=== PATIENT | male | born 1940 | race Caucasian/White ===

== ENCOUNTER 2020-08-31 21:01 | Emergency (ER) | payer MEDICARE, SELFPAY ==
[2020-08-31 21:03] VITALS: BP 165/67; PULSE 68; RESP 20; TEMP 36.7; O2SAT 98
--- NOTE | 2020-08-31 21:08 | ECG_ITS ---
Measurements Intervals [place] Rate: 65 P: 88 [place]: 166 QRS: 21 QRSD: 100 T: 45 QT: 425 QTc: 444 Interpretive Statements SINUS RHYTHM DELAYED PRECORDIAL R/S TRANSITION BASELINE ARTIFACT- II, III, AVF, V1 BORDERLINE ECG Electronically Signed On 09-01-2020 7:28:02 ROOFING TECHNICIAN by rBenden Pollock D.O.
[2020-08-31 22:00] LABS: Basophils Absolute Auto 0.1 K/mm3 (0.0-0.1); Basophils Percent Auto 0.7 % (0.2-1.2); Eosinophils Absolute Auto 0.1 K/mm3 (0-0.3); Eosinophils Percent Auto 1.3 % (0-4.4); Hematocrit 44.4 % (42.0-52.0); Hemoglobin 14.6 g/dL (14.0-18.0); Immature Granulocyte Absolute 0.03 K/mm3 (0.00-0.031); Immature Granulocyte Percent A 0.3 % (0-0.5); Lymphocytes Percent Auto 17.4 % (18.3-44.2); Mean Corpuscular HGB Conc 32.9 g/dl (32-36); Mean Corpuscular Hemoglobin 31.6 pg (26-34); Mean Corpuscular Volume 96.1 fl (80-100); Mean Platelet Volume 11.1 fl (7.4-10.4); Monocytes Absolute Auto 0.7 K/mm3 (0.1-0.6); Monocytes Percent Auto 7.2 % (2.6-8.5); Neutrophils Absolute Auto 6.7 K/mm3 (1.3-6.7); Neutrophils Percent Auto 73.1 % (45.5-73.1); Platelet Count Result 174 k/mm3 (150-375); Red Blood Count 4.62 M/mm3 (4.6-6.20); Red Cell Distribution Width 12.3 % (11.5-14.5); White Blood Count 9.2 K/mm3 (4.5-10.0)
[2020-08-31 22:02] VITALS: BP 152/65; BP 153/70; PULSE 59; PULSE 60
[2020-08-31 22:04] VITALS: BP 168/72; PULSE 72
[2020-08-31 22:13] LABS: Anion Gap 3 mmol/L (8-16); Blood Urea Nitrogen 27 mg/dL (9-20); Calcium 8.5 mg/dL (8.4-10.2); Carbon Dioxide 30 mmol/L (22-30); Chloride 105 mmol/L (98-107); Estimated Glomerular Filt Rate > 60; Glucose 167 mg/dL (75-110); Magnesium 1.9 mg/dL (1.6-2.3); Potassium 4.3 mmol/L (3.4-5.0); Sodium 138 mmol/L (137-145)
--- NOTE | 2020-08-31 22:37 | PC.NURSE ---
called and updated. Will call back later for another update.
--- NOTE | 2020-08-31 23:25 | ED.GENADULT ---
HPI - General Adult General Chief complaint: Recheck/Abnormal Lab/Rx Stated complaint: htn Time Seen by Provider: 08/31/20 21:31 History of Present Illness HPI narrative: Patient is a 80-year-old male who presents ER with some lightheadedness. She reports it occurred prior to arrival and lasted for several minutes. He opted to go upstairs to check his blood pressure after it occurred and found that his systolic blood pressure was in the 200s. He then chose to come to the ER for further evaluation. He has had no chest pain/shortness of breath/nausea/vomiting. He had no focal weakness in arm or leg. No slurred speech or facial droop. Has history of previous CVA. He is on Eliquis. Related Data Home Medications Medication Instructions Recorded Confirmed vitamin B complex 1 cap PO DAILY 08/02/19 04/20/20 Allergies Allergy/AdvReac Type Severity Reaction Status Date / Time Penicillins Allergy Intermediate Rash Verified 08/31/20 21:08 Review of Systems Review of Systems: All systems reviewed & are unremarkable except as noted in HPI and below Constitutional: Constitutional: Denies chills, Denies fever(s) and Denies weakness Cardiovascular: Cardiovascular: Denies chest pain, Denies rapid heart rate and Denies radiating jaw, neck or arm pain Respiratory: Respiratory: Denies cough and Denies dyspnea Gastrointestinal: Gastrointestinal: Denies nausea and Denies vomiting Neurologic: Reports dizziness, Denies headache(s), Denies focal weakness and Denies numbness PMFSH Past Medical History Medical History (Updated 08/31/20 @ 23:28 by Nam Terry MD) Atrial fibrillation Chest pain Chronic fatigue, unspecified Diabetes 1.5, managed as type 2 Dizziness Dyslipidemia associated with type 2 diabetes mellitus Hamstring tear Hyperlipidemia SOB (shortness of breath) Surgical History Surgical History History of ear, nose, and throat (ENT) surgery Previous back surgery Family History Family History Father Malignant neoplasm of prostate Social History Social History Smoking status: Never smoker Alcohol intake: never Gender identity (if verbalized by the patient): Male Exam Narrative: Exam Narrative: GENERAL: Well-appearing, well-nourished, and in no acute distress. HEAD: Normocephalic, atraumatic. Neck: Supple, no carotid bruit. CHEST: Clear to auscultation. No respiratory distress. HEART: Regular rate and rhythm. Normal peripheral pulses. ABDOMEN: Soft, nontender, nondistended. EXTREMITIES: Normal range of motion. No edema. NEURO: Alert and oriented x3. PSYCH: Normal mood and affect. Course Course Emergency Course: Unremarkable evaluation. Normal blood pressures here. Discharge home. Vital Signs Vital signs: Vital Signs Temperature 98.1 F 08/31/20 21:03 Pulse Rate 68 08/31/20 21:03 Respiratory Rate 20 08/31/20 21:03 Blood Pressure 165/67 H 08/31/20 21:03 Pulse Oximetry 98 08/31/20 21:03 Temperature 98.1 F 08/31/20 21:03 Pulse Rate 72 08/31/20 22:04 Respiratory Rate 20 08/31/20 21:03 Blood Pressure 168/72 H 08/31/20 22:04 Pulse Oximetry 98 08/31/20 21:03 Medical Decision Making Vital Signs Vital Signs: Vital Signs Temperature 98.1 F 08/31/20 21:03 Pulse Rate 68 08/31/20 21:03 Respiratory Rate 20 08/31/20 21:03 Blood Pressure 165/67 H 08/31/20 21:03 Pulse Oximetry 98 08/31/20 21:03 Temperature 98.1 F 08/31/20 21:03 Pulse Rate 72 08/31/20 22:04 Respiratory Rate 20 08/31/20 21:03 Blood Pressure 168/72 H 08/31/20 22:04 Pulse Oximetry 98 08/31/20 21:03 Lab Data Result diagrams: 08/31/20 21:54 08/31/20 21:54 Labs: Lab Results 08/31/20 08/31/20 Range/Units 21:54 21:54 WBC 9.2 (4.5-10.0) K/mm3 RBC 4
[2020-08-31 23:42] VITALS: BP 158/68; PULSE 58; RESP 18; O2SAT 97
== END 2020-08-31 23:44 | disposition home or self-care (01) ==
PROVIDERS: Emergency Provider Emergency Medicine; Family Provider Internal Medicine; PCP Internal Medicine
DX: I10 Essential (primary) hypertension (principal); I48.91 Unspecified atrial fibrillation; E78.5 Hyperlipidemia, unspecified; E11.9 Type 2 diabetes mellitus without complications; Z79.01 Long term (current) use of anticoagulants; Z79.84 Long term (current) use of oral hypoglycemic drugs
CPT/HCPCS: 36415; 80048; 83735; 85025; 93005; 99283

== ENCOUNTER 2021-09-06 09:30 | Outpatient (RCR) | payer MEDICARE, SELFPAY | END 2021-09-16 14:52 | disposition home or self-care (01) | LOC: ANHDMC 09:30 | PROVIDERS: PCP Internal Medicine; Visit Provider Internal Medicine | DX: E11.42 Type 2 diabetes mellitus with diabetic polyneuropathy (principal); Z71.89 Other specified counseling | CPT/HCPCS: 99199; G0108; G0109 ==

== ENCOUNTER 2021-11-06 13:59 | Outpatient (CLI) | payer MEDICARE, SELFPAY ==
--- NOTE | ~2021-11-06 | US_ITS ---
EXAMINATION: US arterial ankle brachial ind DATE: 11/06/2021 14:33 INDICATION: Peripheral vascular disease. Type 2 diabetes. Treated hypercholesterolemia. Treated hyper tension. TECHNIQUE: Segmental pressures and plethysmographic and Doppler waveforms of the brachial and lower e xtremity arteries were obtained. COMPARISON: None. FINDINGS: Right and left brachial artery pressures of 126 mm Hg and 125 mm Hg, respectively, are concordant (no rmal difference <= 30 mmHg). The right ankle-brachial index (ANA) is 1.58 (normal >= 0.9-1.0). The right great toe-brachial index (TBI) is 0.75 (normal >= 0.65). Arterial Doppler waveforms are biphasic. The left ANA is 1.17. The left TBI is 0.69. Arterial Doppler waveforms are biphasic. IMPRESSION: Bilateral normal ANA and TBI measurements Reviewed, dictated and finalized at [facility]. Reviewed, dictated and finalized at location [facility].
== END 2021-11-06 14:00 | disposition home or self-care (01) ==
PROVIDERS: PCP Internal Medicine; Visit Provider Internal Medicine
DX: I73.9 Peripheral vascular disease, unspecified (principal)
CPT/HCPCS: 93922

== ENCOUNTER 2022-05-12 10:43 | Outpatient (CLI) | payer MEDICARE, SELFPAY ==
--- NOTE | ~2022-05-12 | XR_ITS ---
XR knee LT 3V 05/12/2022 11:09 Indication: Left knee pain Procedure: 3 views left knee Comparison: No prior studies for comparison. Findings: There is mild osteoarthritis of the left knee. No fracture, subluxation or dislocation. No significant joint effusion. Impression: 1: Mild osteoarthritis of the left knee. Reviewed, dictated and finalized at [facility]. Impression: 1: Mild osteoarthritis of the left knee.
== END 2022-05-12 10:44 | disposition home or self-care (01) ==
PROVIDERS: PCP Internal Medicine; Visit Provider Nurse Practitioner
DX: M17.12 Unilateral primary osteoarthritis, left knee (principal)
CPT/HCPCS: 73562

== ENCOUNTER 2022-06-27 14:27 | Outpatient (CLI) | payer MEDICARE, SELFPAY ==
--- NOTE | ~2022-06-27 | XR_ITS ---
EXAMINATION: XR chest 2V 06/27/2022 14:47 INDICATION: Atrial fibrillation. Long-term drug therapy. PROCEDURE: 2 view chest COMPARISON: 05/31/2018 FINDINGS: The lungs are clear. The cardiomediastinal silhouette is within normal limits. There are no pleural effusions. There is no pneumothorax suspected. There are calcified granulomas. IMPRESSION: 1: NO ACUTE CARDIOPULMONARY DISEASE. Reviewed, dictated and finalized at location [facility]. 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
== END 2022-06-27 14:28 | disposition home or self-care (01) ==
PROVIDERS: PCP Internal Medicine; Visit Provider Internal Medicine Cardiovascular Disease
DX: Z79.899 Other long term (current) drug therapy (principal)
CPT/HCPCS: 71046

== ENCOUNTER 2022-07-31 09:38 | Emergency (ER) | payer MEDICARE, SELFPAY ==
[2022-07-31 09:50] VITALS: BP 169/68; PULSE 85; RESP 18; TEMP 36.3; O2SAT 100
--- NOTE | 2022-07-31 10:04 | ED.GENADULT ---
HPI - General Adult General Chief complaint: Dental/Oral Stated complaint: Swollen lip Time Seen by Provider: 07/31/22 10:04 Source: patient, RN notes reviewed and old records reviewed Mode of arrival: ambulatory Limitations: no limitations History of Present Illness HPI narrative: 82-year-old male presents to the [facility] with a swollen lip. Had dental work done 2 days ago. Patient reports after he got dressed he noticed that the right side of his lip was swollen. It has switch sides to the left lower. No numbness or tingling. No redness. No increased warmth. No lip or tongue swelling. Talking in full sentences. Patient also reports being itchy all over without a rash. Onset (ago): hour(s) Related Data Home Medications Medication Instructions Recorded Confirmed vitamin B complex 1 cap PO DAILY 08/02/19 07/31/22 amiodarone 100 mg tablet 100 mg DAILY 07/31/22 07/31/22 blood sugar diagnostic (OneTouch 07/31/22 Verio test strips) metformin 500 mg tablet 500 mg DAILY 07/31/22 07/31/22 omeprazole 20 mg capsule,delayed 20 mg DAILY 07/31/22 07/31/22 release tamsulosin 0.4 mg capsule 0.4 mg PO DAILY 07/31/22 07/31/22 Allergies Allergy/AdvReac Type Severity Reaction Status Date / Time Penicillins Allergy Intermediate Rash Verified 07/31/22 10:10 Review of Systems Review of Systems: All systems reviewed & are unremarkable except as noted in HPI and below Constitutional: Constitutional: Reports no additional constitutional complaints Eyes: Eyes: Reports no additional eye complaints ENT: Reports as per HPI Cardiovascular: Cardiovascular: Reports no additional cardiovascular complaints, Denies chest pain and Denies dyspnea Respiratory: Respiratory: Reports no additional respiratory complaints, Denies chest congestion, Denies cough and Denies dyspnea Gastrointestinal: Gastrointestinal: Reports no additional gastrointestinal complaints, Denies abdominal pain, Denies nausea and Denies vomiting Musculoskeletal: Musculoskeletal: Reports no additional musculoskeletal complaints Integumentary/Breasts: Skin/Breast: Reports system reviewed and no additional complaints, except as docu Neurologic: Reports system reviewed and no additional complaints, except as documented Psychiatric: Psychiatric: Reports no additional psychiatric complaints Allergic/Immunologic: Allergic/Immunologic: Reports no additional allergic/immunologic complaints PMFSH Past Medical History Medical History Age-related nuclear cataract of left eye Age-related nuclear cataract of right eye ASHD (arteriosclerotic heart disease) Atrial fibrillation Benign essential hypertension Benign prostatic hyperplasia Body mass index [BMI] 29.0-29.9, adult (06/01/19) Calcification of both carotid arteries Cerebrovascular accident (CVA) Chest pain Chronic fatigue, unspecified 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, managed as type 2 Dizziness DM w/o complication type II Dyslipidemia associated with type 2 diabetes mellitus Gastroesophageal reflux disease without esophagitis Hamstring tear Hyperlipidemia Lesion of mandible Multinodular goiter On fpc drug therapy Other and unspecified hyperlipidemia Pain of left great toe Pneumonia due to infectious organism Sciatica of right side SOB (shortness of breath) Thyroid nodule URI, acute Surgical History Surgical History History of ear, nose, and throat (ENT) surgery Previous back surgery S/P discectomy Family History Family History Father Malignant neoplasm of prostate Other Diabetes mellitus Social History Social History Smoking status: Never smoker Second hand tobacco smoke exposure: Yes (when he was a kid ) Alcohol intake: never
== END 2022-07-31 10:32 | disposition home or self-care (01) ==
PROVIDERS: Emergency Provider Nurse Practitioner; PCP Internal Medicine
DX: R22.0 Localized swelling, mass and lump, head (principal); L50.9 Urticaria, unspecified; I48.91 Unspecified atrial fibrillation; I10 Essential (primary) hypertension; E11.9 Type 2 diabetes mellitus without complications; E78.5 Hyperlipidemia, unspecified; Z86.73 Personal history of transient ischemic attack (TIA), and cerebral infarction without residual deficits; Z79.84 Long term (current) use of oral hypoglycemic drugs
CPT/HCPCS: 99213; G0463

== ENCOUNTER 2023-06-25 11:33 | Emergency (ER) | payer MEDICARE, SELFPAY ==
[2023-06-25 11:43] VITALS: BP 172/66; PULSE 64; RESP 20; TEMP 37.1; O2SAT 100
--- NOTE | 2023-06-25 11:51 | ED.EPISTAXIS ---
HPI - Epistaxis General Chief complaint: Epistaxis Stated complaint: Nose Bleed Time Seen by Provider: 06/25/23 11:55 Mode of arrival: ambulatory Limitations: no limitations History of Present Illness HPI Narrative: 83-year-old male presents with concern for nose bleed this started around 10 30 this morning. He reports he was bending over to started Tiller and after strenuously pulling his nose started bleeding. He reports history of nose bleeds. He denies head injury. MD complaint: epistaxis Related Data Home Medications Medication Instructions Recorded Confirmed vitamin B complex 1 cap PO DAILY 08/02/19 04/30/23 blood sugar diagnostic (OneTouch 07/31/22 04/30/23 Verio test strips) tamsulosin 0.4 mg capsule 0.4 mg PO DAILY 07/31/22 04/30/23 Allergies Allergy/AdvReac Type Severity Reaction Status Date / Time Penicillins Allergy Intermediate Rash Verified 06/25/23 11:40 Review of Systems Review of Systems: CONSTITUTIONAL: Denies malaise EYES: Denies visual changes ENT: Reports left nare epistaxis NEUROLOGIC: Denies headache. 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, managed as type 2 Dizziness DM w/o complication type II Dyslipidemia associated with type 2 diabetes mellitus Gastroesophageal reflux disease without esophagitis Hamstring tear Hyperlipidemia Lesion of mandible Multinodular goiter On long-term drug therapy Other and unspecified hyperlipidemia Pain of left great toe Pneumonia due to infectious organism Sciatica of right side SOB (shortness of breath) Thyroid nodule URI, acute Surgical History Surgical History History of ear, nose, and throat (ENT) surgery Previous back surgery S/P discectomy Family History Family History Father Malignant neoplasm of prostate Other Diabetes mellitus Social History Social History Smoking status: Never smoker Second hand tobacco smoke exposure: Yes (when he was a kid ) Alcohol intake: never Substance use: never Substance use type: does not use Lack of Transportation: No Lack of Food: Never True Current Housing: I Have Housing Concerned About Future Housing: No Difficulty Paying Gas/Electric Bills: No Difficulty Paying for Meds: No Education: Bachelor's Degree Difficulty w/ Childcare or Family Care: No Gender identity (if verbalized by the patient): Male Comments At time of signature, agree with nursing past medical, surgical, social and family history. There is no relevant family history pertinent to the presenting complaint Exam Narrative: GENERAL: Well-appearing, well-nourished, and in no acute distress. HEAD: Normocephalic, atraumatic. EYES: PERRLA, sclera clear, and EOMI. No nystagmus. ENT: Nares clear, turbinates pink, no rhinorrhea. No active epistaxis, dried blood noted. Mucous membranes moist. NECK: Supple. CHEST: No respiratory distress. Speaks in full sentences. HEART: Regular rate and rhythm. SKIN: Warm, dry, no visible rash. NEURO: Alert and oriented x3. PSYCH: Normal mood and affect Course Course Emergency Course: Patient is aware of diagnosis, understands and agrees to treatment plan. Anticipatory guidance given. Patient agrees to follow-up as directed and
[2023-06-25] MEDS: PHENYLEPHRINE 1% NA SPR (*BKC) 15 ML BTL 1 SPRAY NASAL (12:05)
== END 2023-06-25 12:34 | disposition home or self-care (01) ==
PROVIDERS: Emergency Provider Nurse Practitioner; PCP Nurse Practitioner Family
DX: R04.0 Epistaxis (principal); I25.10 Atherosclerotic heart disease of native coronary artery without angina pectoris; I48.91 Unspecified atrial fibrillation; I10 Essential (primary) hypertension; N40.0 Benign prostatic hyperplasia without lower urinary tract symptoms; Z86.73 Personal history of transient ischemic attack (TIA), and cerebral infarction without residual deficits; E78.5 Hyperlipidemia, unspecified; E78.49 Other hyperlipidemia; E11.9 Type 2 diabetes mellitus without complications; H26.9 Unspecified cataract
CPT/HCPCS: 30901; 99213; A9270; G0463

== ENCOUNTER 2023-06-29 05:04 | Observation (INO) | payer MEDICARE, SELFPAY ==
[2023-06-29] VITALS (24 sets, daily range): BP systolic 132–170; BP diastolic 54–68; PULSE 61–90; RESP 15–33; TEMP 36.5–37.3; O2SAT 88–97; BMI 29.0
--- NOTE | ~2023-06-29 | CT_ITS ---
EXAMINATION: CT abdomen pelvis w con DATE: 06/29/2023 07:18 INDICATION: Abdominal distention. TECHNIQUE: Computed tomography (CT) of the abdomen and pelvis was performed with 100 mL Omnipaque 350 intravenous contrast. Automated exposure control and iterative reconstruction technique were employe d. The dose-length product was 729.31 mGy-cm. COMPARISON: None. FINDINGS: The visualized portions of the lung bases demonstrate mild scarring in paraspinal right low er lobe. No pleural effusion. The heart size is normal. No pericardial effusion. The liver and gallbl adder are normal. Calcifications in the spleen are consistent with old granulomatous disease. The bush creas, adrenal glands, and kidneys are normal. There are no dilated loops of bowel. There is divertic ulosis of the colon without evidence of diverticulitis. The appendix is not visualized. Aortic athero sclerosis is noted. There are no pathologically enlarged lymph nodes. There is no free intraperitonea l fluid. The prostate is severely enlarged. There is a left inguinal hernia containing fat. There is mild thoracic and lumbar spondylosis. IMPRESSION: 1. Left inguinal hernia containing fat. Reviewed, dictated and finalized at location E. BAG DESIGNER
--- NOTE | ~2023-06-29 | XR_ITS ---
EXAMINATION: XR chest 2V DATE: 06/29/2023 06:22 INDICATION: Chest pain. TECHNIQUE: Frontal and lateral views of the chest were obtained. COMPARISON: Chest 2 views 06/27/2022 FINDINGS: A calcified right lung nodule and calcified right hilar lymph nodes are consistent with old granulomatous disease. No pleural effusion or pneumothorax. The heart size is normal. IMPRESSION: 1. No acute cardiopulmonary disease. Reviewed, dictated and finalized at location E. 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
--- NOTE | 2023-06-29 05:05 | ECG_ITS ---
Measurements Intervals [place] Rate: 80 P: 58 [place]: 188 QRS: -14 QRSD: 98 T: 55 QT: 380 QTc: 440 Interpretive Statements SINUS RHYTHM CANNOT RULE OUT SEPTAL INFARCT, AGE INDETERMINATE BASELINE ARTIFACT- I, II, III, AVR, AVL, AVF, V1-V2, V4-V6 ABNORMAL ECG COMPARED TO ECG 08/31/2020 21:08:25 NO SIGNIFICANT CHANGES Electronically Signed On 06-29-2023 6:24:33 ROTOGRAVURE PRESS OPERATOR by Brenden Pollock D.O.
[2023-06-29 05:39] LABS: Basophils Absolute Auto 0.1 K/mm3 (0.0-0.1); Basophils Percent Auto 0.5 % (0.2-1.2); Eosinophils Absolute Auto 0.2 K/mm3 (0-0.3); Eosinophils Percent Auto 1.2 % (0-4.4); Hematocrit 42.4 % (42.0-52.0); Hemoglobin 13.3 g/dL (14.0-18.0); Immature Granulocyte Absolute 0.04 K/mm3 (0.00-0.031); Immature Granulocyte Percent A 0.3 % (0-0.5); Lymphocytes Absolute Auto 1.51 K/mm3 (0.9-3.2); Lymphocytes Percent Auto 11.6 % (18.3-44.2); Mean Corpuscular HGB Conc 31.4 g/dl (32-36); Mean Corpuscular Hemoglobin 30.8 pg (26-34); Mean Corpuscular Volume 98.1 fl (80-100); Mean Platelet Volume 10.9 fl (7.4-10.4); Monocytes Absolute Auto 0.6 K/mm3 (0.1-0.6); Monocytes Percent Auto 4.7 % (2.6-8.5); Neutrophils Absolute Auto 10.6 K/mm3 (1.3-6.7); Neutrophils Percent Auto 81.7 % (45.5-73.1); Platelet Count Result 190 k/mm3 (150-375); Red Blood Count 4.32 M/mm3 (4.6-6.20); Red Cell Distribution Width 12.7 % (11.5-14.5)
[2023-06-29 05:49] LABS: INR 1.1; Prothrombin Time 15.1 Seconds (11.1-14.7)
[2023-06-29 05:50] LABS: Partial Thromboplastin Time 30.9 SECONDS (22.3-36.8)
[2023-06-29 05:51] LABS: Alanine Aminotransferase 31 U/L (6-50); Albumin Level 4.4 g/dL (3.5-5.1); Alkaline Phosphatase 63 U/L (38-126); Anion Gap 12 mmol/L (8-16); Aspartate Amino Transferase 30 U/L (17-59); Bilirubin,Total 0.8 mg/dL (0.2-1.3); Blood Urea Nitrogen 28 mg/dL (9-20); Calcium 9.1 mg/dL (8.4-10.2); Carbon Dioxide 27 mmol/L (22-30); Chloride 101 mmol/L (98-107); Estimated CRCL calculation 47 ml/min; Estimated Glomerular Filt Rate 58; Glucose 134 mg/dL (65-110); Lipase 53 U/L (23-300); Potassium 4.1 mmol/L (3.4-5.0); Sodium 140 mmol/L (137-145)
[2023-06-29 06:02] LABS: Troponin I < 0.012 ng/mL (0.000-0.034)
--- NOTE | 2023-06-29 06:52 | ED.GENADULT ---
HPI - General Adult General Chief complaint: Shortness of Breath/Dyspnea <Lisa Ruiz MD - Last Filed: 06/29/23 06:57> Stated complaint: Chest pain, heart pounding. <Lisa Ruiz MD - Last Filed: 06/29/23 06:57> Time Seen by Provider: 06/29/23 06:51 <Lisa Ruiz MD - Last Filed: 06/29/23 06:57> History of Present Illness HPI narrative: patient presents the emergency department from home with his . He woke up feeling acutely short of breath. Feels like his abdomen is very distended and therefore he cannot take full breaths. He is tachypneic. Denies chest pain or abdominal pain. Consistently feel short of breath. Denies fevers chills or cough. Denies history of liver pathology or congestive heart failure. Patient felt well yesterday this started acutely in the middle of the night. <Lisa Ruiz MD - Last Filed: 06/29/23 06:57> Related Data Home medications: Home Medications Medication Instructions Recorded Confirmed vitamin B complex 1 cap PO DAILY 08/02/19 06/29/23 blood sugar diagnostic (OneTouch 07/31/22 06/29/23 Verio test strips) tamsulosin 0.4 mg capsule 0.4 mg PO DAILY 07/31/22 06/29/23 amiodarone 100 mg tablet 100 mg PO HS 06/29/23 06/29/23 apixaban 2.5 mg tablet (Eliquis) 2.5 mg PO DAILY 06/29/23 06/29/23 sitagliptin phosphate 50 mg tablet 50 mg PO DAILY 06/29/23 06/29/23 (Januvia) <Lisa Ruiz MD - Last Filed: 06/29/23 06:57> Allergies/adverse reactions: Allergies Allergy/AdvReac Type Severity Reaction Status Date / Time Penicillins Allergy Intermediate Rash Verified 06/29/23 11:56 <Lisa Ruiz MD - Last Filed: 06/29/23 06:57> Review of Systems Review of Systems: Review of systems negative except what is documented in the HPI <Lisa Ruiz MD - Last Filed: 06/29/23 06:57> [facility] Past Medical History Medical History: Medical History Age-related nuclear cataract of left eye Age-related nuclear cataract of right eye ASHD (arteriosclerotic heart disease) Atrial fibrillation Benign essential hypertension Benign prostatic hyperplasia Body mass index [BMI] 29.0-29.9, adult (06/01/19) Calcification of both carotid arteries Cerebrovascular accident (CVA) Chest pain Chronic fatigue, unspecified 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, managed as type 2 Dizziness DM w/o complication type II Dyslipidemia associated with type 2 diabetes mellitus Gastroesophageal reflux disease without esophagitis Hamstring tear Hyperlipidemia Lesion of mandible Multinodular goiter 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 Other and unspecified hyperlipidemia Pain of left great toe Pneumonia due to infectious organism Sciatica of right side SOB (shortness of breath) Thyroid nodule URI, acute <Lisa Ruiz MD - Last Filed: 06/29/23 06:57> Surgical History Surgical History: Surgical History History of ear, nose, and throat (ENT) surgery Previous back surgery S/P discectomy <Lisa Ruiz MD - Last Filed: 06/29/23 06:57> Family History Family History: Family History (Updated 06/29/23 @ 12:02 by Catarina Gee RN) Father Malignant neoplasm of prostate Mother Old age Other Diabetes mellitus <Lisa Ruiz MD - Last Filed: 06/29/23 06:57> Social History Social History: Social History Smoking status: Never smoker Second hand tobacco smoke exposure: Yes (when he was a kid ) Alcohol intake: current Drinks per week: 3 Substance use: never Substance use type: does not use Lack of Transportation: No Lack of Food: Never True Current Housing: I Have Housing Concerned About Future Housing: No Difficulty Paying Gas/Electric Bills: No Difficulty Paying for Med
--- NOTE | 2023-06-29 07:21 | PC.NURSE ---
Pt RESP 30 and 88% SAT on room air, pt placed on 2 L NC O2 and repositioned upright. 02 sat currently 96%.
[2023-06-29 07:23] LABS: Lipase 55 U/L (23-300)
[2023-06-29 07:46] LABS: Appearance Urine Clear (Clear); Bilirubin Urine Negative (Negative); Blood Urine Negative (Negative); Color Urine Yellow (Yellow); Glucose Urine UA Negative (Negative); Ketones Urine Trace mg/dL (Negative); Leukocyte Esterase Ur Negative LEU/UL (Negative); Nitrate Urine Negative (Negative); Protein Urine Negative (Negative); Specific Grav Ur 1.031 (1.001-1.035); pH Urine 5.5 (5.0-9.0)
[2023-06-29] MEDS: ALBUTEROL SULFATE NEB 2.5 MG/3 ML INH INHALATION ×3 (07:55→19:38)
[2023-06-29] MEDS: IPRATROPIUM BR 0.02% INH SOLN 0.5 MG/2.5 ML VIAL INHALATION ×3 (07:55→19:38)
[2023-06-29 08:01] LABS: NT Pro B Type Natriuretic Pept 302 pg/mL (19.9-100)
[2023-06-29 08:09] LABS: Add Urine Microscopic? NO
[2023-06-29 08:28] LABS: Influenza A QL RT-PCR Negative (Negative); Influenza B QL RT-PCR Negative (Negative); SARS-CoV-2 RNA PCR Negative (Negative)
[2023-06-29 08:58] LABS: Troponin I < 0.012 ng/mL (0.000-0.034)
--- NOTE | 2023-06-29 09:25 | PC.NURSE ---
Pt had O2 ambulation assessment, 92% at start on room air, pt decreased to 84% on room air. Pt placed back in stretcher and on 2 L NC O2. EDP notified.
[2023-06-29 10:41] LABS: Alveolar/Arterial O2 Gradient 34.5 mmHg; Base Excess ABG 1.9 mEq/l (+/-2.0); Carboxyhemoglobin 0.8 % THb (0-2.0); Fractional Inspired Oxygen 21 %; HCO3 ABG 26.4 mEq/l (22.0-26.0); Methemoglobin ABG 0.2 %THb (0-1.5); Oxygen Saturation ABG 93.6 % (95.0-100.0); Oxyhemoglobin 92.1 % THb (90.0-100.0); PCO2 ABG 40.8 mmHg (35.0-45.0); PO2 ABG 66.4 mmHg (80.0-100.0); PO2 FiO2 Ratio Arterial Blood 3.16 %; Reduced Hemoglobin 6.9 %THb (0-5.0); Total Hemoglobin 13.9 g/dL (12.0-18.0); pH ABG 7.428 (7.350-7.450)
[2023-06-29 10:43] LABS: Device ROOM AIR; Modified Allen's Test Pass; Site Drawn LEFT RADIAL
[2023-06-29] MEDS: AZITHROMYCIN 500 MG/NS 250 ML 500 MG/250 ML BAG 250 MG IVPB (10:55)
--- NOTE | 2023-06-29 11:15 | ADMGEN ---
This patient, Manuel Grimes, was admitted to 2 Medical Room 257-01. Patient/family oriented to hospital policies and general routines including ID bracelet, bed and alarms, visiting hours, pain management, procedures, bathroom and other care routines, personal items, smoking policy, room service/diet, and visiting hours. Information on how to activate the Rapid Response Team has been discussed. Patient/Family are encouraged to report perceived risks to care and to ask questions if they do not understand what they are told or what they should do.
[2023-06-29 11:59] LABS: Troponin I 0.016 ng/mL (0.000-0.034)
[2023-06-29] MEDS: methylPREDNISolone SOD SUCC 125 MG VIAL 60 MG IV PUSH ×3 (12:12→23:30)
--- NOTE | 2023-06-29 16:15 | PM.IMHP ---
H&P: HPI History of Present Illness Date/Time: 06/29/23 16:15 Chief Complaint: shortness of breath Narrative: 83M awoke from sleep at 2 am with abrupt onset of shortness of breath. The past week they had dirt moved into their yard for a project, and the neighbor was burning wood fences the night before. The the ER his o2 sat was 80% requiring 2L NC, but on the floor he is now saturating 96% on RA. He has no complaints at the moment but wants to stay the night. The , also a pleasant person, is also requesting that. 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, managed as type 2 Dizziness DM w/o complication type II Dyslipidemia associated with type 2 diabetes mellitus Gastroesophageal reflux disease without esophagitis Hamstring tear Hyperlipidemia Lesion of mandible Multinodular goiter On custodial drug therapy Other and unspecified hyperlipidemia Pain of left great toe Pneumonia due to infectious organism Sciatica of right side SOB (shortness of breath) Thyroid nodule URI, acute Surgical History Surgical History History of ear, nose, and throat (ENT) surgery Previous back surgery S/P discectomy Family History Family History (Updated 06/29/23 @ 12:02 by Catarina Gee RN) Father Malignant neoplasm of prostate Mother Old age Other Diabetes mellitus Social History Social History Smoking status: Never smoker Second hand tobacco smoke exposure: Yes (when he was a kid ) Alcohol intake: current Drinks per week: 3 Substance use: never Substance use type: does not use Lack of Transportation: No Lack of Food: Never True Current Housing: I Have Housing Concerned About Future Housing: No Difficulty Paying Gas/Electric Bills: No Difficulty Paying for Meds: No Currently Unemployed: No Education: Bachelor's Degree Difficulty w/ Childcare or Family Care: No Gender identity (if verbalized by the patient): Male Spiritual care concerns: No Meds Home Medications and Allergies Home Medications Medication Instructions Recorded Confirmed Type vitamin B complex 1 cap PO DAILY 08/02/19 06/29/23 History blood sugar diagnostic (OneTouch 07/31/22 06/29/23 History Verio test strips) tamsulosin 0.4 mg capsule 0.4 mg PO DAILY 07/31/22 06/29/23 History lisinopril 10 mg tablet 10 mg PO DAILY #90 ea 12/25/22 06/29/23 Rx metformin 500 mg tablet 500 mg PO DAILY #90 tabs 12/25/22 06/29/23 Rx omeprazole 20 mg capsule,delayed 20 mg PO DAILY #180 caps 04/27/23 06/29/23 Rx release amlodipine 2.5 mg tablet 2.5 mg PO DAILY #90 tabs 06/24/23 06/29/23 Rx amiodarone 100 mg tablet 100 mg PO HS 06/29/23 06/29/23 History apixaban 2.5 mg tablet (Eliquis) 2.5 mg PO DAILY 06/29/23 06/29/23 History sitagliptin phosphate 50 mg tablet 50 mg PO DAILY 06/29/23 06/29/23 History (J[place]) Allergies Allergy/AdvReac Type Severity Reaction Status Date / Time Penicillins Allergy Intermediate Rash Verified 06/29/23 11:56 Vital Signs Vital Signs - 24 hr 06/29/23 05:11 06/29/23 05:22 06/29/23 06:40 Temperature 97.7 F Pulse Rate 76 71 Respiratory Rate 20 28 H Blood Pressure 170/61 H 166/66 H Pulse Oximetry 97 93 93 Oxygen Delivery Room Air Room Air Oxygen Flow Rate 06/29/23 07:19 1
[2023-06-29 17:23] LABS: Glucose Point of Care 213 mg/dl (65-105)
[2023-06-29] MEDS: INSULIN ASPART (*BKC) 100 UNITS/ML SUB-Q ×2 (17:26→20:11)
[2023-06-29 20:07] LABS: Glucose Point of Care 378 mg/dl (65-105)
[2023-06-29] MEDS: AMIODARONE HCL 100 MG TABLET PO (20:10)
[2023-06-30] VITALS (12 sets, daily range): BP systolic 133–136; BP diastolic 47; PULSE 66–90; RESP 18; TEMP 36.4–37.1; O2SAT 95–98
[2023-06-30] MEDS: ALBUTEROL SULFATE NEB 2.5 MG/3 ML INH INHALATION ×3 (02:21→13:37)
[2023-06-30] MEDS: IPRATROPIUM BR 0.02% INH SOLN 0.5 MG/2.5 ML VIAL INHALATION ×3 (02:21→13:36)
--- NOTE | 2023-06-30 05:00 | ECG_ITS ---
Measurements Intervals [place] Rate: 85 P: 66 TX: 192 QRS: -25 QRSD: 112 T: 39 QT: 413 QTc: 493 Interpretive Statements SINUS RHYTHM INTRAVENTRICULAR CONDUCTION DELAY CANNOT RULE OUT SEPTAL INFARCT, AGE INDETERMINATE BASELINE ARTIFACT- II, III, AVF ABNORMAL ECG COMPARED TO ECG 06/29/2023 05:09:22 INTRAVENTRICULAR CONDUCTION DELAY NOW PRESENT Electronically Signed On 06-30-2023 11:00:21 ELECTROMEDICAL EQUIPMENT TECHNICIAN by Brenden Pollock D.O.
[2023-06-30] MEDS: methylPREDNISolone SOD SUCC 125 MG VIAL 60 MG IV PUSH ×2 (05:19→11:39)
[2023-06-30 05:47] LABS: Basophils Percent Auto 0.1 % (0.2-1.2); Hematocrit 37.7 % (42.0-52.0); Hemoglobin 11.9 g/dL (14.0-18.0); Immature Granulocyte Absolute 0.05 K/mm3 (0.00-0.031); Immature Granulocyte Percent A 0.4 % (0-0.5); Lymphocytes Absolute Auto 0.49 K/mm3 (0.9-3.2); Mean Corpuscular HGB Conc 31.6 g/dl (32-36); Mean Corpuscular Hemoglobin 30.7 pg (26-34); Mean Corpuscular Volume 97.2 fl (80-100); Mean Platelet Volume 11.4 fl (7.4-10.4); Monocytes Absolute Auto 0.2 K/mm3 (0.1-0.6); Monocytes Percent Auto 1.6 % (2.6-8.5); Neutrophils Absolute Auto 11.5 K/mm3 (1.3-6.7); Neutrophils Percent Auto 93.9 % (45.5-73.1); Platelet Count Result 183 k/mm3 (150-375); Red Blood Count 3.88 M/mm3 (4.6-6.20); Red Cell Distribution Width 12.6 % (11.5-14.5); White Blood Count 12.2 K/mm3 (4.5-10.0)
[2023-06-30 05:57] LABS: Anion Gap 10 mmol/L (8-16); Blood Urea Nitrogen 30 mg/dL (9-20); Calcium 8.5 mg/dL (8.4-10.2); Carbon Dioxide 24 mmol/L (22-30); Chloride 103 mmol/L (98-107); Estimated CRCL calculation 44 ml/min; Estimated Glomerular Filt Rate 53; Glucose 260 mg/dL (65-110); Potassium 4.2 mmol/L (3.4-5.0); Sodium 137 mmol/L (137-145)
[2023-06-30 06:13] LABS: Procalcitonin 0.2 ng/mL
[2023-06-30 08:04] LABS: Glucose Point of Care 237 mg/dl (65-105)
[2023-06-30] MEDS: amLODIPine BESYLATE 2.5 MG TABLET PO (08:12)
[2023-06-30] MEDS: lisinopriL 10 MG TABLET PO (08:12)
[2023-06-30] MEDS: PANTOPRAZOLE 40 MG TABLET PO (08:12)
[2023-06-30] MEDS: VITAMIN B COMPLEX CAPSULE 1 CAP PO (08:12)
[2023-06-30] MEDS: APIXABAN 2.5 MG TABLET PO (08:12)
[2023-06-30] MEDS: TAMSULOSIN HCL 0.4 MG CAPSULE PO (08:13)
[2023-06-30] MEDS: INSULIN ASPART (*BKC) 100 UNITS/ML SUB-Q ×2 (08:13→11:52)
[2023-06-30] MEDS: AZITHROMYCIN 500 MG/NS 250 ML 500 MG/250 ML BAG 250 MG IVPB (09:14)
[2023-06-30 11:50] LABS: Glucose Point of Care 260 mg/dl (65-105)
--- NOTE | 2023-06-30 15:27 | PM.DS ---
DS: Admitting Diagnosis Discharge Date 06/30/2023: Admitting Diagnosis Shortness of breath/hypoxia. DS: Discharge Diagnosis Discharge Diagnosis (1) Acute hypoxemic respiratory failure: Code(s): J96.01 - Acute respiratory failure with hypoxia Status: Acute (2) Dyslipidemia associated with type 2 diabetes mellitus: Code(s): E11.69 - Type 2 diabetes mellitus with other specified complication; E78.5 - Hyperlipidemia, unspecified Status: Acute (3) Paroxysmal atrial flutter: Code(s): I48.92 - Unspecified atrial flutter Status: Acute (4) GERD (gastroesophageal reflux disease): Qualifiers: Esophagitis presence: esophagitis presence not specified Qualified Code(s): K21.9 - Gastro-esophageal reflux disease without esophagitis Code(s): K21.9 - Gastro-esophageal reflux disease without esophagitis Status: Acute (5) Hypertension: Qualifiers: Hypertension type: essential hypertension Qualified Code(s): I10 - Essential (primary) hypertension Code(s): I10 - Essential (primary) hypertension Status: Acute (6) Neuropathy: Code(s): G62.9 - Polyneuropathy, unspecified Status: Acute (7) CKD (chronic kidney disease) stage 3, GFR 30-59 ml/min: Qualifiers: Chronic kidney disease stage 3 subtype: stage 3a (GFR 45-59) Qualified Code(s): N18.31 - Chronic kidney disease, stage 3a Code(s): N18.30 - Chronic kidney disease, stage 3 unspecified Status: Acute DS: Summary Hospital Course Reason for hospitalization: Patient presented to the hospital with shortness of breath, diagnosed with hypoxia in the ER. Hospital Course: H&P: HPI History of Present Illness Date/Time: 06/29/23? 16:15 Chief Complaint: shortness of breath Narrative: 83M awoke from sleep at 2 am with abrupt onset of shortness of breath. The past week they had dirt moved into their yard for a project, and the neighbor was burning wood fences the night before. The the ER his o2 sat was 80% requiring 2L NC, but on the floor he is now saturating 96% on RA. He has no complaints at the moment but wants to stay the night. The , also a pleasant person, is also requesting that. 06/30/2023: Patient is feeling better today. His shortness of breath/ hypoxia has resolved. He is saturating 98% on room air. Chest x-ray was reviewed which ruled out pneumonia hence we will discontinue his antibiotics. Patient has a calcified right lung nodule and right hilar lymph nodes consistent with old granulomatous disease for which I recommended him to follow up with the Pulmonary/PCP as outpatient. He is stable for discharge. Status at Discharge Overall status at discharge: patient is progressing back to baseline Time Spent with Patient Time attestation: Total time spent providing and/or coordinating discharge services: Time spent: Greater than 30 minutes Exam Narrative: PHYSICAL EXAMINATION: Vital signs: Please see the chart General physical exam: Head/eyes: Atraumatic, EOMI, PERRLA ENT: Moist mucous membranes, nasal passages clear Neck: Supple, full range of motion, trachea midline CVS: S1 + S2, regular rate and rhythm, no murmurs Respiratory: Bilaterally decreased air entry in both lung sierra, mild B/L crackles, symmetric chest expansion, no distress Abdomen: Soft, non-tender, bowel sounds +ve, no organomegaly Extremities: No clubbing, no cyanosis, no edema, no calf tenderness Musculoskeletal: Moves all, adequate range of motion, no muscle spasms Skin: Warm, dry, no jaundice, no cyanosis Neurological: Awake, alert, oriented x 3, cranial nerves II-XII intact, no focal neurological deficits Psychiatric: Normal mood, non suicidal DS: Data Data Completed and Pending Labs on day of discharge: Labs from last 24 hours 06/30/23 06/30/23 06/30/23 11:45 07:58 05:20 WBC 12.2 H RBC 3.88 L Hgb 11.9 L Hct 37.7 L MCV 97.2 MCH 30.7 MCHC 3
== END 2023-06-30 16:30 | disposition home or self-care (01) ==
LOC: ANHED 07:36 → ANH2MED 10:58
PROVIDERS: Emergency Medicine; Admitting Provider General Practice; Emergency Provider Emergency Medicine; PCP Nurse Practitioner Family; Visit Provider Family Medicine
DX: J96.01 Acute respiratory failure with hypoxia (principal); D72.829 Elevated white blood cell count, unspecified; I25.10 Atherosclerotic heart disease of native coronary artery without angina pectoris; I10 Essential (primary) hypertension; R07.9 Chest pain, unspecified; I48.92 Unspecified atrial flutter; N40.0 Benign prostatic hyperplasia without lower urinary tract symptoms; J18.9 Pneumonia, unspecified organism; I12.9 Hypertensive chronic kidney disease with stage 1 through stage 4 chronic kidney disease, or unspecified chronic kidney disease; E11.22 Type 2 diabetes mellitus with diabetic chronic kidney disease; N18.30 Chronic kidney disease, stage 3 unspecified; Z20.822 Contact with and (suspected) exposure to COVID-19; R94.31 Abnormal electrocardiogram [ECG] [EKG]; K40.90 Unilateral inguinal hernia, without obstruction or gangrene, not specified as recurrent; E11.69 Type 2 diabetes mellitus with other specified complication; E78.5 Hyperlipidemia, unspecified; E11.42 Type 2 diabetes mellitus with diabetic polyneuropathy; K21.9 Gastro-esophageal reflux disease without esophagitis; R53.82 Chronic fatigue, unspecified; F10.90 Alcohol use, unspecified, uncomplicated; Z79.01 Long term (current) use of anticoagulants; Z79.84 Long term (current) use of oral hypoglycemic drugs; Z79.899 Other long term (current) drug therapy; Z86.73 Personal history of transient ischemic attack (TIA), and cerebral infarction without residual deficits
CPT/HCPCS: 36415; 36600; 71046; 74177; 80048; 80053; 81003; 82375; 82805; 82948; 83050; 83690; 83880; 84145; 84484; 85025; 85610; 85730; 87636; 93005; 94640; 96365; 96367; 99285; A9270; G0378; J0456; J0696; J1815; J2930; Q9967

== ENCOUNTER 2023-07-06 18:47 | Emergency (ER) | payer MEDICARE, SELFPAY ==
[2023-07-06 19:13] VITALS: BP 174/67; PULSE 70; RESP 18; TEMP 36.8; O2SAT 98
--- NOTE | 2023-07-06 20:10 | PC.NURSE ---
patient states he is going to another hospital
== END 2023-07-06 20:10 | disposition left against medical advice (07) ==
PROVIDERS: PCP Nurse Practitioner Family
DX: R04.0 Epistaxis (principal)
CPT/HCPCS: 99199

== ENCOUNTER 2023-08-06 09:42 | Outpatient (CLI) | payer MEDICARE, SELFPAY ==
--- NOTE | 2023-08-06 09:48 | ECHO_ITS ---
Patient Info Name: Manuel Grimes Age: 83 years : 1940 Gender: Male Ht: 72 in Wt: 211 lbs BSA: 2.22 m2 HR: 55 bpm BP: 130 / 64 mmHg Technical Quality: Good Exam Date: 08/06/2023 9:52 AM Exam Location: Echo Lab Patient Status: Outpatient Admit Date: 08/06/2023 Staff Ordering Physician: Leda Burch APRN Attending Provider: Lead Burch APRN Referring Physician: Kiersten KHAN; Exam Type: CA echo doppler color flow Study Info Indications R01.1 - Cardiac murmur, unspecified R06.02 - Shortness of breath Complete two-dimensional, color flow and Doppler transthoracic echocardiogram is performed. Summary 1. Complete two-dimensional, color flow and Doppler transthoracic echocardiogram is performed. 2. Left ventricular chamber dimension is normal. 3. Left ventricular systolic function is normal, estimated at 55-60%. 4. There is mild concentric increased left ventricular wall thickness. 5. The left ventricular diastolic function is normal. 6. E/e' 8 is minimally elevated. 7. Left atrial chamber dimension is moderately enlarged. 8. Right atrial chamber dimension is mildly enlarged. 9. 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 10. There is mild aortic valve stenosis with a peak velocity of 191 cm/s, mean gradient of 7 mmHg, and aortic valve area of 1.9 cm2. 11. There is mild to moderate aortic valve regurgitation. 12. There is mild tricuspid valve regurgitation. 13. No pulmonary hypertension, estimated pulmonary arterial systolic pressure is 37 mmHg. 14. There is mild pulmonic regurgitation. 15. Dilated inferior vena cava with >50% collapse upon inspiration consistent with normal right atrial pressure, 10 mmHg. Left Ventricle E/e' 8 is minimally elevated. Left ventricular chamber dimension is normal. Left ventricular systolic function is normal, estimated at 55-60%. There is mild concentric increased left ventricular wall thickness. The left ventricular diastolic function is normal. Right Ventricle Right ventricular systolic function is normal and with normal TAPSE 2.6 cm. Right ventricular chamber dimension is normal. Left Atria Left atrial chamber dimension is moderately enlarged. Right Atria Right atrial chamber dimension is mildly enlarged. Aortic Valve The aortic valve is trileaflet. 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 There is mild aortic valve stenosis with a peak velocity of 191 cm/s, mean gradient of 7 mmHg, and aortic valve area of 1.9 cm2. There is mild to moderate aortic valve regurgitation. Pulmonic Valve There is mild pulmonic regurgitation. Mitral Valve There is no mitral valve stenosis. There is no mitral valve regurgitation. Tricuspid Valve There is mild tricuspid valve regurgitation. No pulmonary hypertension, estimated pulmonary arterial systolic pressure is 37 mmHg. Pericardium/Pleural There is no pericardial effusion. Inferior Vena Cava Dilated inferior vena cava with >50% collapse upon inspiration consistent with normal right atrial pressure, 10 mmHg. Aorta The aortic root size at the sinus of Valsalva is normal. Left Ventricular Outflow Tract Name Value Normal LVOT 2D LVOT Diameter 2.0 cm LVOT Doppler LVOT Peak Gradient 5 mmHg
== END 2023-08-06 09:43 | disposition home or self-care (01) ==
LOC: ANHCARD 09:43
PROVIDERS: PCP Nurse Practitioner Family; Visit Provider Nurse Practitioner Family
DX: I35.0 Nonrheumatic aortic (valve) stenosis (principal); I35.8 Other nonrheumatic aortic valve disorders; I35.1 Nonrheumatic aortic (valve) insufficiency; I07.1 Rheumatic tricuspid insufficiency; I37.1 Nonrheumatic pulmonary valve insufficiency; R93.1 Abnormal findings on diagnostic imaging of heart and coronary circulation
CPT/HCPCS: 93306

== ENCOUNTER 2024-08-25 20:00 | Outpatient (CLI) | payer MEDICARE, SELFPAY ==
--- OUTSIDE RECORDS SUMMARY | 2024-09-01 02:18 | XMS_ITS | Clinical Summary ---
Author Organization [facility] Address [address] [place] [address] Care Team Providers Care Road Passenger Firer Name Role Phone Vinicius Abraham MD Unavailable [phone] Heriberto Enriquez MD Unavailable [phone] Unknown, Provider Primary Care Provider Unavaila ble Source Comments [facility],non-owned Affiliates and Associated Physician Practices is amultiple site organization consisting of ambulatory clinics and hospital sitesin [place], [place], [place] and [place]. This disclosure is being madepursuant to the Care Everywhere program and may not contain all information available regarding this patient. Last updated 18.[facility] Allergies Active Allergy Reactions Criticality Noted Date Comments Penicillins Rash Medium 02/06/2016 Medications * Be aware that medications may not be up to date on this document. Alwaysverify current medications with the patient. Medication Sig Dispensed Refills Start Date End Date Status JANUVIA 50 MG tablet Take 1 (one) tablet by mouth once daily 01/09/2016 Active metFORMIN (Glucophage) 500 MG tablet Take 1 (one) tablet by mouth once daily 02/03/2022 Active tamsulosin (Flomax) 0.4 MG capsule Take 1 (one) capsule by mouth once daily 03/11/2022 Active lisinopril (Prinivil; Zestril) 10 MG tablet Take 1 (one) tablet by mouth once daily Active B JCOSEBD-OGIWLU-CV PO Take 1 tablet by mouth once daily Active omeprazole EC (PriLOSEC OTC) 20 MG tabletIndications:Ga stroesophageal reflux disease without esophagitis Take 2 (two) tablets by mouth daily before breakfast 180 tablet 3 04/18/2022 Active Eliquis 2.5 MG tablet Take 1 (one) tablet by mouth once daily 09/16/2022 Active OneTouch Verio test strip Use 1 (one) strip once daily 07/11/2021 Active rosuvastatin (Crestor) 5 MG tablet Take 1 (one) tablet by mouth once daily 04/23/2021 Active Melatonin 1 MG Take 1 tablet by mouth once daily Active albuterol HFA (Proventil; Ventolin; Proair) 108 (90 Base) MCG/ACT inhaler Inhale 1 (one) puff by mouth as directed 07/07/2023 Active ketoconazole (Nizoral) 2 % shampoo 09/07/2023 Active Airsupra 90-80 MCG/ACT AERO INHALE 2 PUFFS BY MOUTH EVERY 4-6 HOURS NEEDED 02/29/2024 Active amLODIPine (Norvasc) 2.5 MG tablet Take 1 (one) tablet by mouth once daily 03/16/2024 Active Z-Ynxhbbwcapmo-Lpwpt -B12-B6 (Metanx) 3-90.314-2-35 MG capsule 01/20/2024 Active escitalopram (Lexapro) 5 MG tabletIndications:GA D (generalized anxiety disorder) Take 1 (one) tablet by mouth once daily 90 tablet 4 04/07/2024 Active Active Problems Problem Noted Date Diagnosed Date Post-COVID chronic fatigue 04/01/2024 DAWSON (generalized anxiety disorder) 04/01/2024 Type 2 diabetes mellitus wit h kidney complication, without long-term current use of insulin 04/18/2022 Primary hypertension 04/18/2022 Epistaxis 04/18/2022 CVA (cerebral vascular accident) 04/18/2022 Benign prostatic hyperplasia without lower urinary tract symptoms 04/18/2022 Gastroesophageal reflux disease without esophagi tis 04/18/2022 PAF (paroxysmal atrial fibrillation) 04/18/2022 Acute pain of left knee 04/18/2022 Resolved Problems Problem Noted Date Diagnosed Date Resolved Date COVID 04/01/2024 04/01/2024 Type 2 diabetes mellitus wit h stage 3 chronic kidney disease, with long-term current use of insulin 04/18/2022 04/18/2022 Encounters Date Type Department Care Team Description 08/24/2024 Lab Requisition [facility] - DermPath Lab [address] [place] [address] Soni Eastman MD from Last 3 Months Immunizations Name Administration Dates Next Due INFLUENZA VACCINE, ADJUVANTE D, QUADR. (FLUAD QUADRIVALENT; 65Y+) (AIIV4) 07/31/2023 INFLUENZA VACCINE, QUADR. (F LUZONE; FLULAVAL; FLUARIX; AFLURIA QUADRIVALENT; 6MO+), 0.5 ML (IIV4) 06/02/2018,05/23/2016 PNEUMOCOCCAL PPV VACCINE 12/25/2022 TDAP (7yrs+) 09/09/2023 Family History Medical History Relation Name Comments Arthritis - Rheumatoid Father Diabetes Father Relation Name Status Comments Father Mother Sister Alive Social History Tobacco Use Types Packs/Day Years Used Date Smoking Tobacco: Never Smokeless Tobacco: Never Tobacco Cessation:Counseling Given: Not Answered Alcohol Use Standard Drinks/Week Comments Yes 0 (1 standard drink = 0.6 oz pur e alcohol) PHQ-2 Answer Date Recorded PHQ2 TOTAL SCORE 0 09/22/2022 Sex and Gender Information Value Date Recorded Sex Assigned at Not on file Gender Identity Not on file Sexual Orientation Not on file Last Filed Vital Signs Vital Sign Reading Time Taken Comments Blood Pressure 168/71 04/01/2024 9:11 AM CDT sta nding Pulse 59 04/01/2024 9:09 AM CDT Temperature 36.8 ??C (98.2 ??F) 09/09/2023 10:[address] Respiratory Rate 18 02/06/2023 9:43 AM CDT Oxygen Saturation 97% 04/01/2024 9:09 AM CDT Inhaled Oxygen Concentration - - Weight 94.8 kg (209 lb) 04/01/2024 9:09 AM CDT Height 182.9 cm (6') 09/09/2023 10:32 AM DRY PRIMER POWDER BLENDER Body Mass Index 28.35 09/09/2023 10:32 AM DRY PRIMER POWDER BLENDER Plan of Treatment Upcoming Encounters Date Type Department Care Team (Late st Contact Info) Description 10/07/2024 8:30 AM DRY PRIMER POWDER BLENDER Office Visit [facility] [address] [place] [id number] Sandra Polanco MD [address] [place] [address] Health Maintenance Due Date Last Done Comments ZOSTER VACCINE (1 of 2) 02/27/1992 Respiratory Syncytial Virus (RSV) Vaccine Pt: or over 60 yrs (1 - 1-dose 75+ series) 2017 DIABETES-SERUM CREATININE 10/12/20182017, 05/26/2016, 05/25/2016, Additional history exists DIABETES RETINOPATHY SCREENING 04/18/2022 DIABETES-FOOT EXAM WITH MONOFILAMENT 09/22/2023 09/22/2022 PNEUMOCOCCAL VACCINE 50+ (2 of 2 - PCV) 12/26/2023 12/25/2022 COVID-19 VACCINE (3 - season) 2024 10/23/2020, 09/20/2020 INFLUENZA VACCINE (#1) 2024 , 06/02/2018, 05/23/2016 DEPRESSION SCREENING 08/10/2024 09/22/2022, 04/18/20 DIABETES - URINE PROTEIN SCREENING 08/10/2024 MEDICARE AWV ? CALENDAR YEAR 2024 DIABETES-HGB A1C 10/02/2024 04/01/2024, , 09/22/2022, Additional history exists DTAP/TDAP/TD VACCINES (2 - Td or Tdap) 09/09/2033 09/09/2023 HEPATITIS B VACCINE Aged Out No longe r eligible based on patient's age to complete this topic HIB VACCINE Aged Out No longer eligi ble based on patient's age to complete this topic HPV VACCINE Aged Out No longer eligi ble based on patient's age to complete this topic MENINGOCOCCAL (Group B) VACCINE Aged Out No longer eligible based on patient's age to complete this topic MENINGOCOCCAL VACCINE Aged Out No evy patricia eligible based on patient's age to complete this topic Procedures Procedure Name Priority Date/Time Associated Diagnosis Comments DERMATOPATHOLOGY Routine 08/23/2024 3:33 AM DRY PRIMER POWDER BLENDER HEMOGLOBIN A1C - POINT OF CARE (AMB) [facility] Routine 04/01/2024 9:22 AM CDT Type 2 diabetes mellitus with stage 3 chronic kidney disease, without long-term current use of insulin, unspecified whether stage 3a or 3b CKD (HCC) COMPREHENSIVE METABOLIC PANEL STAT 10/12/2017 6:46 AM DRY PRIMER POWDER BLENDER from Last 3 Months or Most Recently Relevant to Health Maintenance Results * DERMATOPATHOLOGY (08/23/2024 3:33 AM DRY PRIMER POWDER BLENDER) Case Report Dermatopathology Report ? Case: [id number] ? Authorizing Provider: ??Soni Eastman MD ? Collected: ? 08/23/2024 03:33 AM ? Ordering Location: ? [facility] - ??Received: ?08/24/2024 01:04 PM ? DermPath Lab ? Pathologist: ? Ilene Chung MD ? Specimen: ?Skin, left mid scalp ? 2:29 PM [facility] D[facility]MAT[facility]Y [facility]OR[facility] Final Diagnosis Specimen A. 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 The specimen consists of a shave biopsy measuring 9x6x3 mm. Jar 0. 2:29 PM [facility]ERMATOPATH[facility] Microscopic Description Specimen A. SKIN, left mid scalp: Sections show areas in which atypical keratinocytes are present within the epidermis in two different patterns. In one area, atypical keratinocytes replace most of the thickness of the epidermis and there are broad rete ridges and overlying parakeratosis. In other areas, there are atypical keratinocytes in the lower epidermis with partial maturation. There is solar elastosis. There is a column of marked compact hyperkeratosis. 2:29 PM [facility] DERMATOPATHOLOGY [facility]OR[facility] Disclaimer An external and internal positive and negative controls are appropriate for the histochemical, immunohistochemical and immunofluorescence stain(s) in this case (if any), except where stated explicitly. The performance characteristics of the stain(s) cited in this report were developed and its performance characteristic determined by the Dermatopathology Laboratory at [facility], directed by Dr. Luis Navas. These tests need not be, and therefore are not, approved by the [place] Food and Drug Administration. The tests are used for clinical purposes. Billing Codes Specimen Charges Stain Charges 04692 1 2:29 PM [facility] DERMAT[facility] Embedded Images 2:29 PM [facility]MAT[facility] Pathology/Cytolo gy TISSUE SPECIMEN FROM SKIN / Unknown 08/23/2024 3:33 AM DRY PRIMER POWDER BLENDER 08/24/2024 1:04 PM DRY PRIMER POWDER BLENDER Soni Eastman MD LAB - PATHOLOGY/CYT OLOGY ORDERABLES DERMATOPATHOLOGY LABORATORY [facility] - Department of Dermatology [facility] [address] [place] [address], [facility] [phone] * HEMOGLOBIN A1C - POINT OF CARE (AMB) [facility] (04/01/2024 9:22 AM CDT) Hemoglobin A1c POCT 6.4 % [address] BLOOD SPECIMEN / Unknown 04/01/2024 9:22 AM CDT Sandra Polanco MD LAB - POINT OF CARE ORDERABLES [address] [place] [address], [facility] [phone] * (ABNORMAL) COMPREHENSIVE METABOLIC PANEL (10/12/2017 6:46 AM DRY PRIMER POWDER BLENDER) BUN 28(H) 7 - 26 mg/dL [facility] Creatinine 1.2 0.6 - 1.2 mg/dL [facility] Sodium 141 136 - 145 mmol/L [facility] Potassium 4.4 3.5 - 4.5 mmol/L [facility] Chloride 103 98 - 107 mmol/L [facility] CO2 26 22 - 29 mmol/L [facility] Glucose 146(H) 70 - 115 mg/dL [facility] Calcium 9.1 8.4 - 10.2 mg/dL [facility] Protein Total 7.3 6.0 - 8.3 g/dL [facility] Albumin 3.8 3.4 - 5.0 g/dL [facility] Bilirubin Total 0.8 0.2 - 1.2 mg/dL [facility] Alkaline Phosphatase 59 40 - 150 Units/L [facility] ALT 35 0 - 55 Units/L [facility] AST 29 5 - 34 Units/L [facility] Anion Gap 16 8 - 18 [facility] BUN/Creatinine Ratio 23 7 - 23 [facility] Osmolality Calculated 300 270 - 300 mOsm/kg [facility] Albumin/Globulin Ratio 1.1 1.1 - 2.3 [facility] eGFR 59(L) >60 mL/min/1.7 3 m2 [facility] Blood specimen (specimen) BLOOD SPECIMEN / Unknown 10/12/2017 6:46 AM DRY PRIMER POWDER BLENDER 10/12/2017 6:48 AM DRY PRIMER POWDER BLENDER Heladio Adhikari MD LAB - CHEMISTRY O RDERABLES Performing Organization Address City/State/[facility] Co de Phone Number [facility] [address] [phone] from Last 3 Months or Most Recently Relevant to Health Maintenance Insurance Payer Benefit Plan / Group Subscriber ID Effective Dates Phone Address Type AETNA MEDICARE ADV AETNA MEDICARE ADV HMO/PPO/PFFS [id number] 08/10/2022-Prese nt [address] [place] [address] Medicare- Managed Care AETNA AETNA MEDICARE ADV HMO/PPO [id number] 08/10/2022-Prese nt [address] [place] [address] Medicare- Managed Care AETNA AETNA MEDICARE ADV HMO/PPO [id number] 08/10/2022-Prese nt [address] [place] [address] Medicare- Managed Care AETNA AETNA MEDICARE ADV HMO/PPO [id number] 08/10/2022-Prese nt [address] [place] [address] Medicare- Managed Care AETNA AETNA MEDICARE ADV HMO/PPO [id number] 08/10/2022-Prese nt [address] [place] [address] Medicare- Managed Care AETNA AETNA MEDICARE ADV HMO/PPO [id number] 08/10/2022-Prese nt [address] [place] [address] Medicare- Managed Care AETNA AETNA MEDICARE ADV HMO/PPO [id number] 08/10/2022-Prese nt [address] [place] [address] Medicare- Managed Care AETNA AETNA MEDICARE ADV HMO/PPO [id number] 08/10/2022-Prese nt [address] [place] [address] Medicare- Managed Care AETNA AETNA MEDICARE ADV HMO/PPO [id number] 08/10/2022-Prese nt [address] [place] [address] Medicare- Managed Care AETNA AETNA MEDICARE ADV HMO/PPO [id number] 08/10/2022-Prese nt [address] [place] [address] Medicare- Managed Care AETNA AETNA MEDICARE ADV HMO/PPO [id number] 08/10/2022-Prese nt [address] [place] [address] Medicare- Managed Care AETNA AETNA MEDICARE ADV HMO/PPO [id number] 08/10/2022-Prese nt [address] [place] [address] Medicare- Managed Care AETNA AETNA MEDICARE ADV HMO/PPO [id number] 08/10/2022-Prese nt [address] [place] [address] Medicare- Managed Care AETNA AETNA MEDICARE ADV HMO/PPO [id number] 08/10/2022-Prese nt [address] [place] [address] Medicare- Managed Care AETNA AETNA MEDICARE ADV HMO/PPO [id number] 08/10/2019-Prese nt [address] [place] [address] Medicare- Managed Care AETNA AETNA MEDICARE ADV HMO/PPO [id number] 08/10/2019-Prese nt [address] [place] [address] Medicare- Managed Care AETNA AETNA MEDICARE ADV HMO/PPO [id number] 08/10/2019-Prese nt [address] [place] [address] Medicare- Managed Care [place] ADVANTRA MEDICARE ADV [id number] 08/10/2015-Prese nt [address] [place] [address] Medicare- Managed Care AETNA AETNA MEDICARE ADV HMO/PPO [id number] Effective for all dates [address] [place] [address] Medicare- Managed Care Advance Directives * Full Code (Latest Code Status on File) Date Activated Date Inactivated Comments 05/25/2016 6:59 AM 05/26/2016 4:43 PM * Full Code Date Activated Date Inactivated Comments 05/22/2016 3:45 PM 05/23/2016 11:[address] Passenger Firer Relationship Specialty Start Date End Date Unknown, Provider PCP - General 02/11/24 Vinicius Abraham MD Internal Medicine 08/21/17 [place] [address] [address] Anesthesiology-Pain Management 02/06/16
--- OUTSIDE RECORDS SUMMARY | 2024-09-01 02:18 | XMS_ITS | Referral Summary ---
Author Organization [facility] Address [facility] [facility] [place] [address] Care Team Providers Care Button Clamper Name Role Phone Vinicius Abraham MD Unavailable [phone] Heriberto Enriquez MD Unavailable [phone] Unknown, Provider Primary Care Provider Unavaila ble Source Comments [facility],non-owned Affiliates and Associated Physician Practices is amultiple site organization consisting of ambulatory clinics and hospital sitesin [place], [place], [place] and [place]. This disclosure is being madepursuant to the Care Everywhere program and may not contain all information available regarding this patient. Last updated 18.[facility] Encounters Date Type Department Care Team Description 08/24/2024 Lab Requisition [facility] - DermPath Lab [address] [facility], [place] [phone] Soni Eastman MD from Last 3 Months Allergies Active Allergy Reactions Criticality Noted Date [...] tablet by mouth once daily Active B XDFUHNV-QZRSSY-RA PO Take 1 tablet by mouth once [...] tablet by mouth once daily 03/16/2024 Active B-Kacrjltowdxj-Dhezj -B12-B6 (Metanx) 3-90.314-2-35 MG capsule 01/20/2024 Active [...] long-term current use of insulin 04/18/2022 04/18/2022 Immunizations Name Administration Dates Next Due INFLUENZA VACCINE, ADJUVANTE D, QUADR. (FLUAD QUADRIVALENT; 65Y+) (AIIV4) 07/31/2023 INFLUENZA VACCINE, QUADR. (F LUZONE; FLULAVAL; FLUARIX; AFLURIA QUADRIVALENT; 6MO+), 0.5 ML (IIV4) 06/02/2018,05/23/2016 PNEUMOCOCCAL PPV VACCINE 12/25/2022 TDAP (7yrs+) 09/09/2023 Social History Tobacco Use Types Packs/Day Years [...] Height 182.9 cm (6') 09/09/2023 10:32 AM VICE PRESIDENT [employer] Body Mass Index 28.35 09/09/2023 10:32 AM VICE PRESIDENT [employer] Functional Status Functional Status Response Date of Assess ment Is person deaf or have ceci us hearing difficulty? No 05/25/2016 Is person blind or have seri ous difficulty seeing? Yes-not when he wears glasses 05/25/2016 Does person have serious dif ficulty walking/climbing stairs? Yes 05/25/2016 Does person have difficulty dressing/bathing? Yes 05/25/2016 Does person have difficulty doing errands alone? Yes 05/25/2016 Cognitive Status Response Date of Assessm ent Does person have difficulty concentrating/remembering/making decisions? No 05/25/2016 Plan of Treatment Upcoming Encounters Date Type Department Care Team (Late st Contact Info) Description 10/07/2024 8:30 AM VICE PRESIDENT [employer] Office Visit [facility] - [facility] [address] [facility] [place] [phone] Sandra Polanco MD [address] [place] [address] Procedures Procedure Name Priority Date/Time Associated Diagnosis Comments DERMATOPATHOLOGY Routine 08/23/2024 3:33 AM VICE PRESIDENT [employer] HEMOGLOBIN A1C - POINT OF CARE (AMB) [facility] Routine 04/01/2024 9:22 AM CDT Type 2 diabetes mellitus with stage 3 chronic kidney disease, without long-term current use of insulin, unspecified whether stage 3a or 3b CKD (HCC) COMPREHENSIVE METABOLIC PANEL STAT 10/12/2017 6:46 AM VICE PRESIDENT [employer] from Last 3 Months or Most Recently Relevant to Health Maintenance Results * DERMATOPATHOLOGY (08/23/2024 3:33 AM VICE PRESIDENT [employer]) Case Report Dermatopathology Report ? Case: [id number] ? Authorizing Provider: ??Soni Eastman MD ? Collected: ? 08/23/2024 03:33 AM ? Ordering Location: ? [facility] - ??Received: ?08/24/2024 01:04 PM ? DermPath Lab ? Pathologist: ? Ilene Chung MD ? Specimen: ?Skin, left mid scalp ? 5 2:29 PM [facility] DERMATOPATHOLOGY LABORATORY Final Diagnosis Specimen A. 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 The specimen consists of a shave biopsy measuring 9x6x3 mm. Jar 0. 5 2:29 PM [facility] DERMATOPATHOLOGY LABORATORY Microscopic Description Specimen A. SKIN, [...] is a column of marked compact hyperkeratosis. 5 2:29 PM [facility] DERMATOPATHOLOGY LABORATORY Disclaimer An external and internal positive and negative controls are appropriate for the histochemical, immunohistochemical and immunofluorescence stain(s) in this case (if any), except where stated explicitly. The performance characteristics of the stain(s) cited in this report were developed and its performance characteristic determined by the Dermatopathology Laboratory at [facility], directed by Dr. Luis Navas. These tests need not be, and therefore are not, approved by the [place] Food and Drug Administration. The tests are used for clinical purposes. Billing Codes Specimen Charges Stain Charges 24343 1 5 2:29 PM [facility] DERMATOPATHOLOGY LABORATORY Embedded Images 5 2:29 PM [facility] DERMATOPATHOLOGY LABORATORY Pathology/Cytolo gy TISSUE SPECIMEN FROM SKIN / Unknown 08/23/2024 3:33 AM VICE [employer]IDENT [employer] 08/24/2024 1:04 PM [employer]ICE [employer] Soni Eastman MD LAB - PATHOLOGY/CYT OLOGY ORDERABLES DERMATOPATHOLOGY LABORATORY [facility] - Department of Dermatology [facility] Medicine [address] [place] [address], [address] [phone] * HEMOGLOBIN A1C - POINT OF CARE (AMB) [facility] (04/01/2024 9:22 AM CDT) Pathologist [facility] Hemoglobin A1c POCT 6.4 % [address] BLOOD SPECIMEN / Unknown 04/01/2024 9:22 AM CDT aSndra Polanco MD LAB - POINT OF CARE ORDERABLES [address], [place] [address], [facility] [phone] * (ABNORMAL) COMPREHENSIVE METABOLIC PANEL (10/12/2017 6:46 AM VICE PRESIDENT [employer]) BUN 28(H) 7 - 26 mg/dL [facility] Creatinine 1.2 0.6 - 1.2 mg/dL [facility] Sodium 141 136 - 145 mmol/L [facility] Potassium 4.4 3.5 - 4.5 mmol/L [facility] Chloride 103 98 - 107 mmol/L [facility] CO2 26 22 - 29 mmol/L [facility] Glucose 146(H) 70 - 115 mg/dL [facility] Calcium 9.1 8.4 - 10.2 mg/dL [facility] Protein Total 7.3 6.0 - 8.3 g/dL [facility] Albumin 3.8 3.4 - 5.0 g/dL [facility] Bilirubin Total 0.8 0.2 - 1.2 mg/dL [facility] Alkaline Phosphatase 59 40 - 150 Units/L [facility] ALT 35 0 - 55 Units/L [facility] AST 29 5 - 34 Units/L [facility] Anion Gap 16 8 - 18 [facility] BUN/Creatinine Ratio 23 7 - 23 [facility] Osmolality Calculated 300 270 - 300 mOsm/kg [facility] Albumin/Globulin Ratio 1.1 1.1 - 2.3 [facility] eGFR 59(L) >60 mL/min/1.7 3 m2 [facility] Blood specimen (specimen) BLOOD SPECIMEN / Unknown 10/12/2017 6:46 AM [employer]ICE [employer]IDENT [employer] 10/12/2017 6:48 AM [employer]ICE [employer]IDENT [employer] Heladio Adhikari MD LAB - CHEMISTRY O RDERABLES Performing Organization Address City/State/[facility] Co de Phone Number [address] [phone] from Last 3 Months or Most Recently Relevant to Health Maintenance Administered Medications Insurance Payer Benefit Plan / Group Subscriber ID Effective Dates Phone Address Type AETNA MEDICARE ADV AETNA MEDICARE ADV HMO/PPO/PFFS [id number] 08/10/2022-[facility] [address] [place] [address] Medicare- Managed Care AETNA AETNA MEDICARE ADV HMO/PPO [id number] 08/10/2022-[facility] [phone] [address] [place] [address] Medicare- Managed Care AETNA AETNA MEDICARE ADV HMO/PPO [id number] 08/10/2022-Prese nt [address] [place] [address] Medicare- Managed Care AETNA AETNA MEDICARE ADV HMO/PPO [id number] 08/10/2022-Prese nt [address] [place] [address] Medicare- Managed Care AETNA AETNA MEDICARE ADV HMO/PPO [id number] 08/10/2022-Prese nt [address] [place] [address] Medicare- Managed Care AETNA AETNA MEDICARE ADV HMO/PPO [id number] 08/10/2022-Prese nt [address] [place] [address] Medicare- Managed Care AETNA AETNA MEDICARE ADV HMO/PPO [id number] 08/10/2022-Prese nt [address] [place] [address] Medicare- Managed Care AETNA AETNA MEDICARE ADV HMO/PPO [id number] 08/10/2022-Prese nt [address] [place] [address] Medicare- Managed Care AETNA AETNA MEDICARE ADV HMO/PPO [id number] 08/10/2022-Prese nt [address] [place] [address] Medicare- Managed Care AETNA AETNA MEDICARE ADV HMO/PPO [id number] 08/10/2022-Prese nt [address] [place] [address] Medicare- Managed Care AETNA AETNA MEDICARE ADV HMO/PPO [id number] 08/10/2022-Prese nt [address] [place] [address] Medicare- Managed Care AETNA AETNA MEDICARE ADV HMO/PPO [id number] 08/10/2022-Prese nt [address] [place] [address] Medicare- Managed Care AETNA AETNA MEDICARE ADV HMO/PPO [id number] 08/10/2022-Prese nt [address] [place] [address] Medicare- Managed Care AETNA AETNA MEDICARE ADV HMO/PPO [id number] 08/10/2022-Prese nt [address] [place] [address] Medicare- Managed Care AETNA AETNA MEDICARE ADV HMO/PPO [id number] 08/10/2019-Prese nt [address] [place] [address] Medicare- Managed Care AETNA AETNA MEDICARE ADV HMO/PPO [id number] 08/10/2019-Prese nt [address] [place] [address] Medicare- Managed Care AETNA AETNA MEDICARE ADV HMO/PPO [id number] 08/10/2019-Prese nt [address] [place] [address] Medicare- Managed Care [place] MED[place]ARE ADVANTRA MEDICARE ADV [id number] 08/10/2015-Prese nt [address] [place] [address] Medicare- Managed Care AETNA AETNA MEDICARE ADV HMO/PPO [id number] Effective for all dates [address] [place] [address] Medicare- Managed Care Advance Directives * Full Code (Latest Code Status on File) Date Activated Date Inactivated Comments 05/25/2016 6:59 AM 05/26/2016 4:43 PM * Full Code Date Activated Date Inactivated Comments 05/22/2016 3:45 PM 05/23/2016 11:38 AM Care Teams Button Clamper Relationship Specialty Start Date End Date Unknown, Provider PCP - General 02/11/24 Vinicius Abraham MD Internal Medicine 08/21/17 [place] [address] [address] Anesthesiology-Pain Management 02/06/16
--- OUTSIDE RECORDS SUMMARY | 2024-09-01 02:18 | XMS_ITS | Encounter Summary ---
Author Organization [facility] Address [address] [facility] [place] [address] Care Team Providers Care Certified Master Safecracker Name Role Phone Vinicius Abraham MD Unavailable [phone] Hreiberto Enriquez MD Unavailable [phone] Unknown, Provider Primary Care Provider Unavaila ble Encounter Details Date Type Department Care Team (Late st Contact Info) Description 08/24/2024 Lab Requisition [facility] - DermPath Lab [address] [facility], [place] [address] Soni Eastman MD [address] [facility] 3 [place] [address] Social History Tobacco Use Types Packs/Day Years Used Date Smoking Tobacco: Never Smokeless Tobacco: Never Alcohol Use Standard Drinks/Week Comments Yes 0 (1 standard drink = 0.6 oz pur e alcohol) PHQ-2 Answer Date Recorded PHQ2 TOTAL SCORE 0 09/22/2022 Sex and Gender Information Value Date Recorded Sex Assigned at Not on file Gender Identity Not on file Sexual Orientation Not on file documented as of this encounter Functional Status Functional Status Response Date of [...] person have difficulty concentrating/remembering/making decisions? No 05/25/2016 documented as of this encounter Plan of Treatment Upcoming Encounters Date Type Department Care Team (Late st Contact Info) Description 10/07/2024 8:30 AM SKEIN WASHER Office Visit [facility] [address] [facility], [place] [phone] Sandra Polanco MD [address] [place] [address] documented as of this encounter Procedures Procedure Name Priority Date/Time Associated Diagnosis Comments DERMATOPATHOLOGY Routine 08/23/2024 3:33 AM SKEIN WASHER documented in this encounter Results * DERMATOPATHOLOGY (08/23/2024 3:33 AM SKEIN WASHER) Case Report Dermatopathology Report ? Case: [id number] ? Authorizing Provider: ??Soni Eastman MD ? Collected: ? 08/23/2024 03:33 AM ? Ordering Location: ? [facility] - ??Received: ?08/24/2024 01:04 PM ? DermPath Lab ? Pathologist: ? Ilene Chung MD ? Specimen: ?Skin, left mid scalp ? 5 2:29 PM [facility] DERMATOPATHOLOGY LABORATORY Final Diagnosis Specimen A. 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 The specimen consists of a shave biopsy measuring 9x6x3 mm. Jar 0. 5 2:29 PM [facility] DERMATOPATHOLOGY LABORATORY Microscopic Description Specimen A. SKIN, [...] of marked compact hyperkeratosis. 5 2:29 PM [facility] DERMATOPATHOLOGY LABORATORY Disclaimer An external and internal positive and negative controls are appropriate for the histochemical, immunohistochemical and immunofluorescence stain(s) in this case (if any), except where stated explicitly. The performance characteristics of the stain(s) cited in this report were developed and its performance characteristic determined by the Dermatopathology Laboratory at [facility], directed by Dr. Luis Navas. These tests need not be, and therefore are not, approved by the [place] Food and Drug Administration. The tests are used for clinical purposes. Billing Codes Specimen Charges Stain Charges 24469 1 5 2:29 PM SKEIN WASHER DERMATOPATHOLOGY LABORATORY Embedded Images 5 2:29 PM SKEIN WASHER DERMATOPATHOLOGY LABORATORY Pathology/Cytolo gy TISSUE SPECIMEN FROM SKIN / Unknown 08/23/2024 3:33 AM SKEIN WASHER 08/24/2024 1:04 PM SKEIN WASHER Soni Eastman MD LAB - PATHOLOGY/CYT OLOGY ORDERABLES DERMATOPATHOLOGY LABORATORY [facility] - Department of Dermatology [address], [address] [phone] documented in this encounter Visit Diagnoses Not on filedocumented in this encounter Care Teams Certified Master Safecracker Relationship Specialty Start Date End Date Unknown, Provider PCP - General 02/11/24 Vinicius Abraham MD Internal Medicine 08/21/17 [place] [address] [address] Anesthesiology-Pain Management 02/06/16 documented as of this encounter
--- OUTSIDE RECORDS SUMMARY | 2024-09-01 02:18 | XMS_ITS | Encounter Summary ---
Author Organization [facility] Address [facility] [place] [address] Care Team Providers Care Laboratory Equipment Installer Name Role Phone Vinicius Abraham MD Primary Care Provider [phone] Vinicius Abraham MD Unavailable Heriberto Enriquez MD Unavailable [phone] Maxwell Carrizales DO Primary Care Provider [phone] Leda Burch Primary Care Provider [phone] Unknown, Provider Primary Care Provider Unavaila ble Encounter Details Date Type Department Care Team (Late st Contact Info) Description 11/07/2021 Lab Requisition [facility] [address] [facility], [place] [address] Soni Eastman MD [address] [facility] 3 [place] [address] Social History Tobacco Use Types Packs/Day Years Used Date Smoking Tobacco: Never Smokeless Tobacco: Never Alcohol Use Standard Drinks/Week Comments Yes 1 (1 standard drink = 0.6 oz pur e alcohol) casual Sex and Gender Information Value Date Recorded [...] st Contact Info) Description 10/07/2024 8:30 AM SWEATER OPERATOR Office Visit [facility] - [facility] [address] [facility], [place] [address] Sandra Polanco MD [address] [place] [address] documented as of this encounter Procedures Procedure Name Priority Date/Time Associated Diagnosis Comments DERMATOPATHOLOGY Routine 11/07/2021 12:0 0 AM CDT documented in this encounter Results * DERMATOPATHOLOGY (11/07/2021 12:00 AM CDT) Case Report Dermatopathology Report ? Case: [id number] ? Authorizing Provider: ??Soni Eastman MD ? Collected: ? 11/07/2021 12:00 AM ? Ordering Location: ? [facility] D[facility] ?Received: ?11/07/2021 04:42 PM ? Pathologist: ? Nancy Turner MD ? Specimen: ?Skin, left upper lip ? 12:37 PM CDT DERMATOPATHOLOGY LABORATORY Final Diagnosis Specimen A. 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 The specimen consists of a shave biopsy measuring 3x3x1 mm. Jar 0. 12:37 PM T DERMATOPATHOLOGY LABORATORY Microscopic Description Specimen A. SKIN, left upper lip: Sections show a lobular tumor composed of aggregates of epithelial cells extending from the epidermis into the dermis. The aggregates are composed of squamoid cells showing variable glycogen vacuolation (pale-staining cytoplasm). The tumor stains with CD34. Additional deeper sections were obtained and reviewed. 12:37 PM T DERMATOPATHOLOGY LABORATORY Disclaimer An external and internal [...] purposes. Billing Codes Specimen Charges Stain Charges 38930 1 52886 1 12:37 PM CDT DERMATOPATHOLOGY LABORATORY Embedded Images 12:37 PM T DERMATOPATHOLOGY LABORATORY Pathology/Cytolog y TISSUE SPECIMEN FROM SKIN / Unknown 11/07/2021 11/07/2021 4:42 PM CDT Soni Eastman MD LAB - PATHOLOGY/CYT OLOGY ORDERABLES DERMATOPATHOLOGY LABORATORY [facility] - Department of Dermatology [place] [id number] [facility], [address]rd Floor [address] [phone] documented in this encounter Visit Diagnoses Not on filedocumented in this encounter Care Teams Laboratory Equipment Installer Relationship Specialty Start Date End Date Vinicius Abraham MD [address] [place] [address] PCP - General 08/21/17 03/13/22 Maxwell Carrizales DO [address] [place] [address] PCP - General 03/14/22 08/24/23 Leda Burch PA [address] [place] [address] PCP - General Nurse Practitioner Primary Care 08/25/23 02/10/24 Unknown, Provider PCP - General 02/11/24 Vinicius Abraham MD [address] [place] [address] Internal Medicine 08/21/17 [place] [address] [address] Anesthesiology-Pain Management 02/06/16 documented as of this encounter
--- OUTSIDE RECORDS SUMMARY | 2024-09-01 02:18 | XMS_ITS | Patient Health Summary ---
Author Organization [facility] Address [address] [place] [address] Care Team Providers Care Piano Maker Name Role Phone Vinicius Abraham MD Unavailable [phone] Heriberto Enriquez MD Unavailable [phone] Unknown, Provider Primary Care Provider Unavaila ble Note from [facility],non-owned Affiliates and Associated Physician Practices is amultiple site organization consisting of ambulatory clinics and hospital sitesin [place], [place], [place] and [place]. This disclosure is being madepursuant to the Care Everywhere program and may not contain all information available regarding this patient. Last updated 18.[facility] Allergies * Penicillins(Rash) -Medium Criticality * Penicillins,Inactive Medications * Be aware that medications may not be up to date on this document. Alwaysverify current medications with the patient. * JANUVIA 50 MG tablet(Started 01/09/2016) Take 1 (one) tablet by mouth once daily * metFORMIN (Glucophage) 500 MG tablet(Started 02/03/2022) Take 1 (one) tablet by mouth once daily * tamsulosin (Flomax) 0.4 MG capsule(Started 03/11/2022) Take 1 (one) capsule by mouth once daily * lisinopril (Prinivil; Zestril) 10 MG tablet Take 1 (one) tablet by mouth once daily * B AFZFSBT-ATKLIU-CU PO Take 1 tablet by mouth once daily * omeprazole EC (PriLOSEC OTC) 20 MG tablet(Started 04/18/2022) Take 2 (two) tablets by mouth daily before breakfast 3 refills by 04/18/2023 * Eliquis 2.5 MG tablet(Started 09/16/2022) Take 1 (one) tablet by mouth once daily * OneTouch Verio test strip(Started 07/11/2021) Use 1 (one) strip once daily * rosuvastatin (Crestor) 5 MG tablet(Started 04/23/2021) Take 1 (one) tablet by mouth once daily * Melatonin 1 MG Take 1 tablet by mouth once daily * albuterol HFA (Proventil; Ventolin; Proair) 108 (90 Base) MCG/ACT inhaler (Started 07/07/2023) Inhale 1 (one) puff by mouth as directed * ketoconazole (Nizoral) 2 % shampoo(Started 09/07/2023) * Airsupra 90-80 MCG/ACT AERO(Started 02/29/2024) INHALE 2 PUFFS BY MOUTH EVERY 4-6 HOURS NEEDED * amLODIPine (Norvasc) 2.5 MG tablet(Started 03/16/2024) Take 1 (one) tablet by mouth once daily * O-Ualyyuauimlz-Frrgq-B12-B6 (Metanx) 3-90.314-2-35 MG capsule(Started 01/20/2024) * escitalopram (Lexapro) 5 MG tablet(Started 04/07/2024) Take 1 (one) tablet by mouth once daily 4 refills by 04/07/2025 Active Problems Problem Noted Date Diagnosed Date [...] current use of insulin 04/18/2022 04/18/2022 Immunizations * INFLUENZA VACCINE, ADJUVANTED, QUADR. (FLUAD QUADRIVALENT; 65Y+) (AIIV4)(Given 07/31/2023) * INFLUENZA VACCINE, QUADR. (FLUZONE; FLULAVAL; FLUARIX; AFLURIA QUADRIVALENT; 6MO+), 0.5 ML (IIV4)(Given 06/02/2018, 05/23/2016) * PNEUMOCOCCAL PPV VACCINE(Given 12/25/2022) * TDAP (7yrs+)(Given 09/09/2023) Social History Tobacco Use Types Packs/Day Years [...] Height 182.9 cm (6') 09/09/2023 10:32 AM [facility] Body Mass Index 28.35 09/09/2023 10:32 AM [facility] Procedures * DERMATOPATHOLOGY(Performed 08/23/2024) * HEMOGLOBIN A1C - POINT OF CARE (AMB) [facility](Performed 04/01/2024) Performed for Type 2 diabetes mellitus with stage 3 chronic kidney disease, without long-term current use of insulin, unspecified whether stage 3a or 3b CKD (HCC) * HEMOGLOBIN A1C - POINT OF CARE (AMB) [facility](Performed 09/09/2023) Performed for Type 2 diabetes mellitus with stage 3 chronic kidney disease, without long-term current use of insulin, unspecified whether stage 3a or 3b CKD (HCC) * CA DRAIN/INJECT LARGE JOINT/BURSA(Performed 09/09/2023) Performed for Primary osteoarthritis of left knee * CA NASAL ENDOSCOPY,DX(Performed 08/25/2023) Performed for Epistaxis * CA CTRL NOSEBLEED,ANTER,COMPLEX(Performed 07/08/2023) Performed for Epistaxis * CA CTRL NOSEBLEED,ANTER,COMPLEX(Performed 10/01/2022) Performed for Epistaxis, Nasal crusting * HEMOGLOBIN A1C - POINT OF CARE (AMB) [facility](Performed 09/22/2022) Performed for Type 2 diabetes mellitus with stage 3 chronic kidney disease, without long-term current use of insulin, unspecified whether stage 3a or 3b CKD (HCC) * CA REMOVE CERUMEN IMPACTED W INSTR EVE(Performed 03/26/2022) Performed for Excessive cerumen in both ear canals * CA NASAL ENDOSCOPY,DX(Performed 03/14/2022) Performed for Nasal crusting * DERMATOPATHOLOGY(Performed 11/07/2021) * CT GUIDED NEEDLE PLACEMENT(Performed 10/12/2017) * CYTOLOGY NON-WAREHOUSE AND RECEIVING SUPERVISOR PANEL ([facility])(Performed 10/12/2017) * COMPREHENSIVE METABOLIC PANEL(Performed 10/12/2017) * PT-INR [facility](Performed 10/12/2017) * CBC W AUTO DIFFERENTIAL(Performed 10/12/2017) * CBC W AUTO DIFFERENTIAL(Performed 10/12/2017) * CARDIAC EKG ORDER(Performed 05/27/2016) * GLUCOSE - POINT OF CARE(Performed 05/26/2016) * GLUCOSE - POINT OF CARE(Performed 05/26/2016) * CBC W AUTO DIFFERENTIAL(Performed 05/26/2016) * BASIC METABOLIC PANEL (CALCIUM TOTAL)(Performed 05/26/2016) * HEMOGLOBIN A1C(Performed 05/26/2016) * GLUCOSE - POINT OF CARE(Performed 05/25/2016) * GLUCOSE - POINT OF CARE(Performed 05/25/2016) * BASIC METABOLIC PANEL (CALCIUM TOTAL)(Performed 05/25/2016) * GLUCOSE - POINT OF CARE(Performed 05/25/2016) * GLUCOSE - POINT OF CARE(Performed 05/25/2016) * TROPONIN I(Performed 05/25/2016) * PT PTT PANEL(Performed 05/25/2016) Performed for Weakness of both lower extremities * TROPONIN I(Performed 05/25/2016) * URINALYSIS REFLEX MICROSCOPIC REFLEX CULTURE(Performed 05/25/2016) * XR LUMBAR SPINE 2 OR 3VW(Performed 05/24/2016) Performed for Weakness of both lower extremities * MRI LUMBAR SPINE WWO CONTRAST(Performed 05/24/2016) Performed for Weakness of both lower extremities * TROPONIN I(Performed 05/24/2016) * COMPREHENSIVE METABOLIC PANEL(Performed 05/24/2016) * CBC W AUTO DIFFERENTIAL(Performed 05/24/2016) * EKG 12-LEAD(Performed 05/24/2016) Performed for Weakness of both lower extremities * LAB RESULTS ORDER(Performed 05/24/2016) * APHERESIS/TRANSFUSION ORDER(Performed 05/24/2016) * HGB HCT PANEL(Performed 05/23/2016) Performed for S/P lumbar laminectomy * GLUCOSE - POINT OF CARE(Performed 05/22/2016) * PT EVAL AND TREAT(Performed 05/22/2016) * GLUCOSE - POINT OF CARE(Performed 05/22/2016) * XR LUMBAR SPINE IN OR 1VW(Performed 05/22/2016) Performed for Right buttock pain * DECOMPRESSION LUMBAR 1-2 LEVELS(Performed 05/22/2016) * EKG 12-LEAD(Performed 05/22/2016) Performed for Preop examination * BLOOD TYPE VERIFICATION(Performed 05/22/2016) * TYPE + SCREEN PANEL(Performed 05/22/2016) * GLUCOSE - POINT OF CARE(Performed 05/22/2016) * URINALYSIS REFLEX MICROSCOPIC REFLEX CULTURE(Performed 04/29/2016) Performed for Preoperative examination * HGB HCT PANEL(Performed 04/29/2016) Performed for Preoperative examination * CULTURE MSSA/MRSA(Performed 04/29/2016) Performed for Preoperative examination * PAIN MANAGEMENT PROCEDURE TIME(Performed 03/12/2016) Performed for Right lumbar radiculopathy * PAIN MANAGEMENT PROCEDURE TIME(Performed 02/20/2016) Performed for Right lumbar radiculopathy * IMAGING/RADIOLOGY/XRAY RESULTS ORDER(Performed 01/03/2016) * DERMATOPATHOLOGY(Performed 01/11/2013) Results * DERMATOPATHOLOGY (08/23/2024 3:33 AM [facility]) Only the most recent of3 resultswithin the time period is included. Case Report Dermatopathology Report ? Case: [id number] ? Authorizing Provider: ??Soni Eastman MD ? Collected: ? 08/23/2024 03:33 AM ? Ordering Location: ? [facility] - ??Received: ?08/24/2024 01:04 PM ? DermPath Lab ? Pathologist: ? Ilene Chung MD ? Specimen: ?Skin, left mid scalp ? 5 2:29 PM [facility] Final Diagnosis Specimen A. 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 The specimen consists of a shave biopsy measuring 9x6x3 mm. Jar 0. 5 2:29 PM [facility] DERMATOPATHOLOGY LABORATORY Microscopic Description Specimen A. [...] of marked compact hyperkeratosis. 5 2:29 PM [facility] DERMATOPATHOLOGY LABORATORY Disclaimer An external and internal positive and negative controls are appropriate for the histochemical, immunohistochemical and immunofluorescence stain(s) in this case (if any), except where stated explicitly. The performance characteristics of the stain(s) cited in this report were developed and its performance characteristic determined by the Dermatopathology Laboratory at [facility], directed by Dr. Luis Navas. These tests need not be, and therefore are not, approved by the [place] Food and Drug Administration. The tests are used for clinical purposes. Billing Codes Specimen Charges Stain Charges 00163 1 5 2:29 PM [facility] DERMATOPATHOLOGY LABORATORY Embedded Images 5 2:29 PM [facility] DERMATOPATHOLOGY LABORATORY Pathology/Cytolo gy TISSUE SPECIMEN FROM SKIN / Unknown 08/23/2024 3:33 AM [facility] 08/24/2024 1:04 PM [facility] Soni Eastman MD LAB - PATHOLOGY/CYT OLOGY ORDERABLES DERMATOPATHOLOGY LABORATORY [facility] - Department of Dermatology [address], [address] [phone] * HEMOGLOBIN A1C - POINT OF CARE (AMB) [facility] (04/01/2024 9:22 AM CDT) Only the most recent of3 resultswithin the time period is included. Hemoglobin A1c POCT 6.4 % [id number] BLOOD [address]IMEN / Unknown 04/01/2024 9:22 AM CDT Sandra Polanco MD LAB - POINT OF CARE ORDERABLES BURT Rodriguez [facility] [address] [place] [address], [facility] [phone] * CA DRAIN/INJECT LARGE JOINT/BURSA (09/09/2023 11:19 AM [facility]) Narrative Letitia Mccollum MD - 09/09/2023 11:19 AM [facility] Letitia Mccollum MD ? 09/09/2023 11:41 AM PROCEDURE NOTE Manuel Grimes was seen today for OA pain of left knee. ??I ?? recommended Injection with steroid because of pain. I reviewed the torres risks and benefits associated with this procedure. ??The patient indicated a reasonable understanding of the indication for this procedure, as well as the risks and benefits associated with it. ??Manuel Grimes agreed to have the procedure performed and signed the consent form which I placed in the patient's chart. Site: ??Knee left Approach: 90 degree knee flexion with single stick entry into lateral 5:00 position with full infusion of steroid and lidocaine into joint space without difficulty Sterile prep used: betadine Anesthetic used: 2 ml 1% lidocaine without epi Other medication used: 40 mg triamcinolone acetonide Complications: none Estimated Blood Loss: none Patient report following procedure: immediate pain relief Letitia Mccollum MD PROCEDURE/MINOR SURG ICAL ORDERABLES * CA NASAL ENDOSCOPY,DX (08/25/2023 2:06 PM [facility]) Narrative Nyla Camilo - 08/25/2023 2:06 PM [facility] Nyla Camilo ? 08/25/2023 ??2:15 PM Due to the findings on physical examination, in correlation with the patient's symptomatology, the decision was made to perform a procedure today in clinic. Verbal consent obtained prior to starting procedure. Procedure note: Procedure: Rigid Nasal Endoscopy Pre Op Dx: ??Nasal secretions Post Op: same Anesthesia: Bilateral Nasal Cavities sprayed with Lidocaine and Neosynephrine Detail: ??Rigid nasal endoscopy performed bilaterally. ??Septum is intact. Right nasal cavity showed patent airway, there were no polyps or purulence. ??Left nasal cavity showed a scab anteriorly which was removed with an underlying small vessel. There was no active bleeding. Tomás Fulton MD PROCEDURE/MINOR BROWN RGICAL ORDERABLES * CA CTRL NOSEBLEED,ANTER,COMPLEX (07/08/2023 3:27 PM [facility]) Tomás Nguyen MD - 07/08/2023 3:27 PM [facility] Tomás Fulton MD ? 07/09/2023 10:52 AM Due to the findings on physical examination, in correlation with the patient's symptomatology, the decision was made to perform a procedure today in clinic. Consent obtained prior to starting procedure. Procedure Note: Pre Op Dx: Epistaxis, anterior Post Op Dx: same Procedure performed: Control of nosebleed, anterior, complex Surgeon: Donaldo Procedure in detail: Manuel Grimes is a 83 year old male with a history of epistaxis who presented today with a chief complaint of bleeding from left nare(s). The risks, benefits, alternatives, and indications of the procedure were discussed in great detail and the patient understood these and wished to proceed. The patient has been unsuccessful in treating topically with moisturizing agents and pressure. First, the nose was inspected. Within the nasal cavity, alLarge vessel eminating on the nasal harpreet onto the left nasal septum x2. The fact that the lesion was not just one simple vessel, and required careful microscopy to identify and treat made this procedure more complex. The lesion was cauterized using monopolar, bipolar and silver nitrate sticks. Bleeding was controlled with good hemostasis. The patient will continue to use topical moisturizing agents while healing. I (Dr. Fulton), was present for the entire procedure and can verify that the patient tolerated the procedure well. Tomás Fulton MD PROCEDURE/MINOR BROWN RGICAL ORDERABLES * CA CTRL NOSEBLEED,ANTER,COMPLEX (10/01/2022 11:58 AM [facility]) Tomás Nguyen MD - 10/01/2022 11:58 AM [facility] Tomás Fulton MD ? 10/01/2022 11:59 AM Due to the findings on physical examination, in correlation with the patient's symptomatology, the decision was made to perform a procedure today in clinic. Consent obtained prior to starting procedure. Procedure Note: Pre Op Dx: Epistaxis, anterior Post Op Dx: same Procedure performed: Control of nosebleed, anterior, complex Surgeon: Donaldo Procedure in detail: Manuel Grimes is a 82 year old male with a history of epistaxis who presented today with a chief complaint of bleeding from left nare(s). The risks, benefits, alternatives, and indications of the procedure were discussed in great detail and the patient understood these and wished to proceed. The patient has been unsuccessful in treating topically with moisturizing agents and pressure. First, the nose was inspected. Within the nasal cavity, a small vascular lesion was identified on the septum. The fact that the lesion was not just one simple vessel, and required careful microscopy to identify and treat made this procedure more complex. The lesion was cauterized using silver nitrate sticks. Bleeding was controlled with good hemostasis. The patient will continue to use topical moisturizing agents while healing. I (Dr. Fulton), was present for the entire procedure and can verify that the patient tolerated the procedure well. Tomás Fulton MD PROCEDURE/MINOR BROWN RGICAL ORDERABLES * CA REMOVE CERUMEN IMPACTED W INSTR EVE (03/26/2022 11:07 AM CDT) Narrative Tomás Fulton MD - 03/26/2022 11:07 AM CDT Tomás Fulton MD ? 03/26/2022 11:09 AM Due to the findings on physical examination, in correlation with the patient's symptomatology, the decision was made to perform a procedure today in clinic. Consent obtained prior to starting procedure. Procedure note: Pre Op Dx: Impacted cerumen, bilateral Post Op: same Procedure: Cerumen removal, bilateral with microscope and instrumentation Surgeon: Donaldo After consent was obtained, the microscope was introduced and an almita speculum of appropriate size was placed. Using a combination of a wax curette and micro-suction, the cerumen was carefully removed under direct visualization. The bilateral TM's were found to be intact. I (Dr. Fulton), was present for the entire procedure and can verify that the patient tolerated the procedure well. Tomás Fulton MD PROCEDURE/MINOR BROWN RGICAL ORDERABLES * CA NASAL ENDOSCOPY,DX (03/14/2022 11:12 AM CDT) Narrative Tomás Fulton MD - 03/14/2022 11:12 AM CDT Tomás Fulton MD ? 03/14/2022 11:44 AM Due to the findings on physical examination, in correlation with the patient's symptomatology, the decision was made to perform a procedure today in clinic. Verbal consent obtained prior to starting procedure. Procedure note: Procedure: Rigid Nasal Endoscopy Pre Op Dx: ??Nasal secretions Post Op: same Anesthesia: Bilateral Nasal Cavities sprayed with Lidocaine and Neosynephrine Detail: ??Rigid nasal endoscopy performed bilaterally. ??Septum with large crust on left anteriorly. Right nasal cavity showed normal septal mucosa, there were no polyps or purulence. ??Left nasal cavity showed dried blood but normal mucosa posteriorly. Tomás Fulton MD PROCEDURE/MINOR BROWN RGICAL ORDERABLES * CT GUIDED NEEDLE PLACEMENT (10/12/2017 9:32 AM [facility]) Anatomical Region Laterality Modality Abdomen Other Impressions 10/13/2017 7:39 PM [facility] Impression: Ultrasound-guided fine needle aspiration of an echogenic right thyroid nodule, as described above. Note: The pathology report is pending at the time of this dictation. Dictated by Andres Harp MD (resident). I, Dr. Adhikari, performed/supervised the entire procedure. This report was approved ??by Andres Harp ?? on 10/12/2017 10:16 AM . IDr. HELADIO M.D. have personally reviewed and interpreted this examination/study. This report was electronically signed by HELADIO ADHIKARI M.D. ??on 10/13/2017 7:39 PM . Narrative 10/13/2017 7:39 PM [facility] History: 77 year old male with incidentally identified right thyroid nodule. He presents to vascular and Interventional radiology for fine needle aspiration of the nodule. Operators: 1. ??Dr. Heladio Adhikari, Attending Physician 2. ??Dr. Andres Harp, Resident Physician Anesthesia: 1. ??Local anesthesia - 6 mL of 1% Lidocaine. Procedure: 1. ??Limited ultrasound examination of the right thyroid lobe. 2. ??Ultrasound-guided fine needle aspiration of a hyperechoic right thyroid lobe nodule. 3. Post-procedure limited ultrasound of the right thyroid lobe. Start time: 0915 hours ?End Time: 1015 hours Duration of the procedure: Approximately 60 minutes Procedure in Detail: The procedure and possible complications were explained to the patient in detail, and informed consent was obtained. The patient was placed in a supine position on the ultrasound table and a limited ultrasound examination of the right thyroid was performed, which demonstrated a hyperechoic right thyroid nodule. The marked site and skin around the region was prepped and draped in a sterile fashion. Local anesthesia was provided by injection with 1% Lidocaine. 25-gauge needles were advanced under ultrasound guidance into the right thyroid nodule. A total of 9 passes of fine needle aspiration were performed. The samples were evaluated by the spray technician on site. A final post-biopsy image did not show any immediate complications, such as hemorrhage. The patient tolerated the procedure well. The patient was transferred in stable condition. Procedure Note Heladio Adhikari MD - 11/11/2017 History: 77 year old male with incidentally identified right thyroidnodule. He presents to vascular and Interventional radiology for fineneedle aspiration of the nodule. Operators: 1. Dr. Heladio Adhikari, Attending Physician 2. Dr. Andres Harp, Resident Physician Anesthesia: 1. Local anesthesia - 6 mL of 1% Lidocaine. Procedure: 1. Limited ultrasound examination of the right thyroid lobe. 2. Ultrasound-guided fine needle aspiration of a hyperechoic rightthyroid lobe nodule. 3. Post-procedure limited ultrasound of the right thyroid lobe. Start time: 0915 hours End Time: 1015 hours Duration of the procedure: Approximately 60 minutes Procedure in Detail: The procedure and possible complications wereexplained to the patient in detail, and informed consent was obtained. The patient was placed in a supine position on the ultrasound table and alimited ultrasound examination of the right thyroid was performed, whichdemonstrated a hyperechoic right thyroid nodule. The marked site and skin around the region was prepped and draped in asterile fashion. Local anesthesia was provided by injection with 1%Lidocaine. 25-gauge needles were advanced under ultrasound guidance intothe right thyroid nodule. A total of 9 passes of fine needle aspiration were performed. The samples wereevaluated by the spray technician on site. A final post-biopsy image did notshow any immediate complications, such as hemorrhage. The patient tolerated the procedure well. The patient was transferred instable condition. IMPRESSION Impression: Ultrasound-guided fine needle aspiration of an echogenic rightthyroid nodule, as described above. Note: The pathology report is pending at the time of this dictation. Dictated by Andres Harp MD (resident). Dr. Zeynep Ford, performed/supervised the entire procedure. This report was approved by Andres Harp on 10/12/2017 10:16 AM . IDr. HELADIO M.D. have personally reviewed and interpreted thisexamination/study. This report was electronically signed by HELADIO ADHIKARI M.D. on 10/13/2017 7:39PM . Donavan Alaniz MD CT ORDERABLES * CYTOLOGY NON-WAREHOUSE AND RECEIVING SUPERVISOR PANEL ([facility]) (10/12/2017 9:00 AM [facility]) Cytology Non-Marketing Effectiveness Manager Accession No: [id number] Reference: [id number] Specimen: RIGHT THYROID Clinical History: incidental thyroid nodule, 3cm Gross Description: 9 FIXED, 9 UNFIXED, 10CC BLOODY SALINE FLUID Preparation Method: 9 PAP AND 9 DIFF QUIK SLIDES, 1 PAP THIN PREP SLIDE SPECIMEN ADEQUACY: Adequate FINAL DIAGNOSIS: Thyroid, right, FNA - ? Negative for malignancy - ? Benign follicular nodule MICROSCOPIC DESCRIPTION: Review of 9 pap, 9 diff quik stained smears, and 1 pap stained ThinPrep slide reveals fragments of sheets of follicular cells, watery colloid, and no/rare macrophages. COMMENT(S): This case has been personally reviewed and interpreted by the attending (teaching) pathologist. Initial Evaluation performed by Alfredo STAHL(ASCP). Electronically signed 10/12/2017 Final Diagnosis performed by Ramy Beasley M.D Ph.D. Electronically signed 10/14/2017 [facility] Other (qualifier value) 10/12/2017 9:00 AM [facility] 10/12/2017 10:52 AM [facility] Narrative [facility] - 10/14/2017 8:44 AM [facility] Diagnosis->Thyroid Nodule Collection Date->10/12/17 Collection Time-> 9:15 AM Specimen A->Thyroid Heladio Adhikari MD LAB - PATHOLOGY/C YTOLOGY ORDERABLES Performing Organization Address [facility]/ZIP Co de Phone Number [facility] [address] [phone] * PT-INR [facility] (10/12/2017 6:46 AM [facility]) PT 13.3 12.1 - 14.[address] [facility] INR 1.[address] [facility] Comment: Suggested therapeutic range for low-intensity coumadin therapy for venous thromboembolism prophylaxis is an INR of 2.0-3.0. ??For high risk patients (Mitral Valve Prosthesis, Atrial Fibrillation, history of TIA/stroke), suggested prophylactic therapeutic range is an INR of 2.5-3.5. Blood specimen (specimen) BLOOD SPECIMEN / Unknown 10/12/2017 6:46 AM [facility] 10/12/2017 6:[address] [facility] [address] [facility] - 10/12/2017 7:01 AM [facility] Is patient on Heparin, Argatroban or Dabigatran?->N Heladio Adhikari MD LAB - COAGULATION ORDERABLES Performing Organization Address [facility] Co de Phone Number [facility] [address] [place] [address] * (ABNORMAL) COMPREHENSIVE METABOLIC PANEL (10/12/2017 6:46 AM [facility]) Only the most recent of2 resultswithin the time period is included. BUN 28(H) 7 - 26 mg/dL [facility] Creatinine 1.2 0.6 - 1.2 mg/dL [facility] Sodium 141 136 - 145 mmol/L [facility] Potassium 4.4 3.5 - 4.5 mmol/L [facility] Chloride 103 98 - 107 mmol/L [facility] CO2 26 22 - 29 mmol/L [facility] Glucose 146(H) 70 - 115 mg/dL [facility] Calcium 9.1 8.4 - 10.2 mg/dL [facility] Protein Total 7.3 6.0 - 8.3 g/dL [facility] Albumin 3.8 3.4 - 5.0 g/dL [facility] Bilirubin Total 0.8 0.2 - 1.2 mg/dL [facility] Alkaline Phosphatase 59 40 - 150 Units/L [facility] ALT 35 0 - 55 Units/L [facility] AST 29 5 - 34 Units/L [facility] Anion Gap 16 8 - 18 [facility] BUN/Creatinine Ratio 23 7 - 23 [facility] Osmolality Calculated 300 270 - 300 mOsm/kg [facility] Albumin/Globulin Ratio 1.1 1.1 - 2.3 [facility] eGFR 59(L) >60 mL/min/1.[address] [facility] Blood specimen (specimen) BLOOD SPECIMEN / Unknown 10/12/2017 6:46 AM [facility] 10/12/2017 6:48 AM [facility] Heladio Adhikari MD LAB - CHEMISTRY O RDERABLES Performing Organization Address City/State/[place] Co de Phone Number [address] [phone] * CBC W AUTO DIFFERENTIAL (10/12/2017 6:46 AM [facility]) Only the most recent of4 resultswithin the time period is included. WBC 7.8 3.5 - 10.5 10? 3 /uL [facility] RBC 4.97 4.30 - 5.70 10? 6 /uL [facility] Hemoglobin 15.1 13.5 - 17.5 g/dL [facility] Hematocrit 44.7 39.0 - 50.0 % [facility] MCV 89.9 81.0 - 97.[address] [facility] MCH 30.4 28.0 - 34.[address] [facility] MCHC 33.8 32.0 - 36.0 g/dL [facility] Platelet Count 161 150 - 400 10? 3 /uL [facility] RDW-SD 41.0 36.0 - 50.[address] [facility] RDW-CV 12.6 11.2 - 14.8 % [facility] MPV 11.6 9.3 - 12.[address] [facility] Neutrophils % 66.0 35.0 - 70.0 % [facility] Lymphocytes % 24.6 19.7 - 55.1 % [facility] Monocytes % 7.1 3.0 - 15.0 % [facility] Eosinophils % 1.9 0.0 - 6.0 % [facility] Basophil % 0.4 0.0 - 1.5 % [facility] Neutrophils Absolute 5.2 1.6 - 7.0 10? 3 /uL [facility] Lymphocyte Absolute 1.9 0.8 - 2.9 10? 3 /uL [facility] Monocytes Absolute 0.56 0.14 - 0.66 10? 3 /uL [facility] Eosinophils Absolute 0.15 0.00 - 0.22 10? 3 /uL [facility] Basophils Absolute 0.03 0.00 - 0.06 10? 3 /uL [facility] Immature Granulocytes % 0.1 0.0 - 1.0 % [facility] Blood specimen (specimen) BLOOD SPECIMEN / Unknown 10/12/2017 6:46 AM [facility] 10/12/2017 6:48 AM [facility] Heladio Adhikari MD LAB - HEMATOLOGY ORDERABLES Performing Organization Address City/State/[place] Co de Phone Number [address] [phone] * CARDIAC EKG ORDER (05/27/2016 7:37 PM CDT) Narrative 05/27/2016 7:37 PM CDT Ordered by an unspecified provider. Scanned Document CARDIAC SERVICES ORD ERABLES * (ABNORMAL) GLUCOSE - POINT OF CARE (05/26/2016 12:14 PM CDT) Only the most recent of9 resultswithin the time period is included. Glucose WB/POC 291(H) 70 - 106 mg/dL 05/26/2016 5:06 PM CDT [facility] Blood BLOOD SPECIMEN / Unknown 05/26/2016 12:14 PM CDT 05/26/2016 5:06 PM CDT Lex Erazo MD LAB - POINT OF CARE ORDERABLES Performing Organization Address [facility]/[place] Co de Phone Number [facility] [address] [place] [address] * (ABNORMAL) HEMOGLOBIN A1C (05/26/2016 4:05 AM CDT) Hemoglobin A1c 6.6(H) 4.2 - 6.3 % 05/26/2016 5:04 AM CDT [facility] Estimated Average Glucose 143 mg/dL 05/26/2016 5:04 AM CDT [facility] Whole Blood BLOOD SPECIMEN WITH EDTA / Unknown 05/26/2016 4:05 AM CDT 05/26/2016 4:13 AM CDT Maye Prescott MD LAB - CHEMISTRY MAGGIE VILLAR Performing Organization Address [facility] de Phone Number [facility] [address] [place] [address] * (ABNORMAL) BASIC METABOLIC PANEL (CALCIUM TOTAL) (05/26/2016 4:05 AM CDT) Only the most recent of2 resultswithin the time period is included. Glucose 231(H) 74 - 106 mg/dL 05/26/2016 4:32 AM CDT [facility] Sodium 137 136 - 145 mmol/L 05/26/2016 4:32 AM CDT [facility] Potassium 4.3 3.5 - 5.1 mmol/L 05/26/2016 4:32 AM CDT [facility] Chloride 103 98 - 107 mmol/L 05/26/2016 4:32 AM CDT [facility] CO2 28 22 - 31 mmol/L 05/26/2016 4:32 AM CDT [facility] Calcium 8.7 8.5 - 10.1 mg/dL 05/26/2016 4:32 AM CDT [facility] Anion Gap 6 5 - 20 mmol/L 05/26/2016 4:32 AM CDT [facility] BUN 27(H) 7 - 21 mg/dL 05/26/2016 4:32 AM CDT [facility] Creatinine 1.00 0.50 - 1.30 mg/dL 05/26/2016 4:32 AM CDT [facility] eGFR by MDRD >60 mL/min/1.7 3m2 05/26/2016 4:32 AM CDT [facility] eGFR by MDRD >60 mL/min/1.7 3m2 05/26/2016 4:32 AM CDT [facility] Blood BLOOD SPECIMEN / Unknown 05/26/2016 4:05 AM CDT 05/26/2016 4:13 AM CDT Jonah Boone MD LAB - CHEMISTRY MAGGIE VILLAR Performing Organization Address [facility]/[place] Co de Phone Number [facility] [address] [place] [address] * TROPONIN I (05/25/2016 2:59 AM CDT) Only the most recent of3 resultswithin the time period is included. Troponin I 0.033 0.000 - 0.049 ng/mL 05/25/2016 3:32 AM CDT [facility] Blood BLOOD SPECIMEN / Unknown 05/25/2016 2:59 AM CDT 05/25/2016 3:09 AM CDT Narrative [facility] - 05/25/2016 3:32 AM CDT Note: Diagnosis of myocardial infarction requires symptoms of ischemia or EKG changes of ischemia and Troponin I >99th of normal (0.05 ng/mL). Troponin should be drawn on initial assessment and 3-6 hours later as clinically indicated. Any condition resulting in myocardial cell damage can increase cardiac troponin levels. In addition to myocardial infarction, these include but are not limited to congestive heart failure (CHF), arrhythmia, myocarditis, and non-cardiac related causes such as pulmonary embolism, renal failure and sepsis. Maye Prescott MD LAB - CHEMISTRY MAGGIE VILLAR Performing Organization Address [facility]/[place] Co de Phone Number [facility] [address] [place] [address] * (ABNORMAL) PT PTT PANEL (05/25/2016 12:48 AM CDT) PT 13.1(H) 9.5 - 11.6 sec 05/25/2016 1:19 AM CDT [facility] INR 1.3(H) 0.9 - 1.1 05/25/2016 1:19 AM CDT [facility] PTT 26.3 21.0 - 32.0 sec 05/25/2016 1:19 AM CDT [facility] Blood BLOOD SPECIMEN / Unknown 05/25/2016 12:48 AM CDT 05/25/2016 12:51 AM CDT Narrative [facility] - 05/25/2016 1:19 AM CDT Conventional Warfarin Anticoagulant Therapy: INR Reference Range: ??2.0-3.0 Intensive Warfarin Anticoagulant Therapy: INR Reference Range: ? 2.5-3.5 Heparin Therapeutic Range for PTT: 47.7 - 68.6 seconds. Gutierrez Hassan MD LAB - COAGULATION OR DERABLES [facility] [address] [place] [address] * (ABNORMAL) URINALYSIS ROUTINE W/REFLEX TO CULTURE (05/25/2016 12:10 AM CDT) Only the most recent of2 resultswithin the time period is included. Color UA Dark Yellow Straw, Yellow, Dark Yellow 05/25/2016 12:22 AM CDT [facility] Clarity UA Turbid 05/25/2016 12:22 AM CDT [facility] Specific [place] UA 1.028 1.005 - 1.030 05/25/2016 12:22 AM CDT [facility] pH UA 5.5 5.0 - 8.0 pH 05/25/2016 12:22 AM CDT [facility] Protein UA 1+(A) Negative 05/25/2016 12:22 AM CDT [facility] Blood UA 3+(A) Negative 05/25/2016 12:22 AM CDT [facility] Leukocyte UA Negative Negative 05/25/2016 12:22 AM CDT [facility] Nitrite UA Negative Negative 05/25/2016 12:22 AM CDT [facility] Glucose UA Negative Negative 05/25/2016 12:22 AM CDT [facility] Ketone UA 2+(A) Negative 05/25/2016 12:22 AM CDT [facility] Bilirubin UA Negative Negative 05/25/2016 12:22 AM CDT [facility] Urobilinogen UA 0.2 0.1 - 1.0 EU/dL 05/25/2016 12:22 AM CDT [facility] WBC UA Auto 2-5 0-2, 2-5 # /hpf 05/25/2016 12:22 AM CDT [facility] RBC UA Auto >100(A) 0-2, 2-5 # /hpf 05/25/2016 12:22 AM CDT [facility] Epithelial Cell UA Auto 0-2 0-2, 2-5 # /hpf 05/25/2016 12:22 AM CDT [facility] Bacteria UA Auto None seen None seen 05/25/2016 12:22 AM CDT [facility] Hyaline Casts UA Auto 0-2 0 - 2 #/lpf 05/25/2016 12:22 AM CDT [facility] Reflex Status Culture not indicated 05/25/2016 12:22 AM CDT [facility] Urine URINE SPECIMEN OBTAINED BY CLEAN CATCH PROCEDURE / Unknown 05/25/2016 12:10 AM CDT 05/25/2016 12:13 AM CDT Maye Prescott MD LAB - URINALYSIS ORD ERABLES [facility] [address] [place] [address] * XR LUMBAR SPINE 2 OR 3 VW (05/24/2016 11:41 PM CDT) Anatomical Region Laterality Modality Spine Radiographic Tracy ging 05/24/2016 11:4 5 PM CDT Impressions 05/24/2016 11:46 PM CDT Interval L3-L5 laminectomy. Narrative 05/24/2016 11:46 PM CDT Lumbar spine 3 views. HISTORY: Low back pain with generalized muscle weakness. Week after surgery. Surgery on by Dr. Pritchett. FINDINGS: Comparison is made to a lateral view examination of the lumbar spine May 22, 2016. Post L3-L5 laminectomy. Bowel gas distention most consistent with ileus. No lumbar compression deformity. Procedure Note Andres Harden MD - 05/24/2016 Lumbar spine 3 views. HISTORY: Low back pain with generalized muscle weakness. Week after surgery. Surgery on by Dr. Pritchett. FINDINGS: Comparison is made to a lateral view examination of the lumbar spine May 22, 2016. Post L3-L5 laminectomy. Bowel gas distention most consistent with ileus. No lumbar compression deformity. IMPRESSION Interval L3-L5 laminectomy. Maye Prescott MD DIAGNOSTIC IMAGING O RDERABLES * MRI LUMBAR SPINE W WO CONTRAST (05/24/2016 11:13 PM CDT) Anatomical Region Laterality Modality Spine Magnetic Resonan ce 05/24/2016 11:3 4 PM CDT Addenda Addendum by Andres Harden MD on 05/25/2016 7:07 PM CDT Corrected impression: Where I said I suspect a small amount of hemorrhage possibly intradural, that should have been transcribed as possibly subdural. I did not think it was free hemorrhage within the thecal sac. Impressions 05/24/2016 11:45 PM CDT Post laminectomy from L3 through L5. 8.6 x 3.2 x 2.1 cm laminectomy defect fluid collection consistent with hemorrhage with what I suspect is a small amount of hemorrhage possibly intradural measuring about 19 x 4 x 3.4 mm at the level of L4. This results in thecal sac compression most evident at L3-4. Findings were discussed with Dr. Hassan 05/24/2016 11:44 PM hours Narrative 05/24/2016 11:45 PM CDT MRI Lumbar Spine With And Without Contrast INDICATION: Back surgery, weakness in both lower extremities TECHNIQUE: Standard MRI sequences of the lumbar spine with and without contrast. 20 cc Dotarem was administered. FINDINGS: Correlation is made to a plain film examination showing a surgical instrument at the L5 spinous process level from May 22, 2016. The patient is status post L3-L5 laminectomy. The spinal cord terminates at the T12-L1 level. No distal cord signal abnormality. No diffuse marrow replacing process. Facet joint fluid is most evident L4-5. L2-3: Small amount of facet joint fluid. No central canal stenosis. Crowding of nerve roots within the thecal sac. L3-4: There is a posterior fluid collection that contains a fluid level. The posterior aspect of the fluid level is dark on T2. The more anterior aspect is bright on T2. The nerve roots are compressed anteriorly. Soft tissue canal stenosis of the thecal sac is advanced. At the L4 pedicle level the thecal sac slightly broadens. There is a high T1 signal intensity inferiorly dark superiorly posterior thecal sac collection presumed related to hemorrhagic products rather than a calcified lipoma of the filum terminale. This would've been present on a preoperative MRI but I do not have for comparison. L5-S1 the amount of compression upon the thecal sac decreases. No S1 root displacement. Postcontrast no abnormal nerve root enhancement. There is expected paraspinal enhancement of the spinal erector muscles paramedian. Procedure Note Andres Harden MD - 05/24/2016 MRI Lumbar Spine With And Without Contrast INDICATION: Back surgery, weakness in both lower extremities TECHNIQUE: Standard MRI sequences of the lumbar spine with and without contrast. 20 cc Dotarem was administered. FINDINGS: Correlation is made to a plain film examination showing a surgical instrument at the L5 spinous process level from May 22, 2016. The patient is status post L3-L5 laminectomy. The spinal cord terminates at the T12-L1 level. No distal cord signal abnormality. No diffuse marrow replacing process. Facet joint fluid is most evident L4-5. L2-3: Small amount of facet joint fluid. No central canal stenosis. Crowding of nerve roots within the thecal sac. L3-4: There is a posterior fluid collection that contains a fluid level. The posterior aspect of the fluid level is dark on T2. The more anterior aspect is bright on T2. The nerve roots are compressed anteriorly. Soft tissue canal stenosis of the thecal sac is advanced. At the L4 pedicle level the thecal sac slightly broadens. There is a high T1 signal intensity inferiorly dark superiorly posterior thecal sac collection presumed related to hemorrhagic products rather than a calcified lipoma of the filum terminale. This would've been present on a preoperative MRI but I do not have for comparison. L5-S1 the amount of compression upon the thecal sac decreases. No S1 root displacement. Postcontrast no abnormal nerve root enhancement. There is expected paraspinal enhancement of the spinal erector muscles paramedian. IMPRESSION Post laminectomy from L3 through L5. 8.6 x 3.2 x 2.1 cm laminectomy defect fluid collection consistent with hemorrhage with what I suspect is a small amount of hemorrhage possibly intradural measuring about 19 x 4 x 3.4 mm at the level of L4. This results in thecal sac compression most evident at L3-4. Findings were discussed with Dr. Hassan 05/24/2016 11:44 PM hours Maye Prescott MD MR ORDERABLES * EKG 12-LEAD (05/24/2016 8:46 PM CDT) Only the most recent of2 resultswithin the time period is included. Ventricular Rate 79 BPM [facility] Atrial Rate 79 BPM [facility] P-R Interval 146 ms [facility] QRS Duration ms 100 ms [facility] Q-T Interval ms 380 ms [facility] QTC Calculation (Bezet) 435 ms [facility] Calculated P Dairy 47 degrees [facility] Calculated R Dairy 6 degrees [facility] Calculated T Dairy 9 degrees [facility] Interpretation EKG Normal sinus rhythm Possible Left atrial enlargement Borderline ECG When compared with ECG of 22-MAY-2016 06:52, No significant change was found Confirmed by CONSTANTINE YANEZ MD ([id number]) on 05/26/2016 11:31:57 AM [facility] 05/24/2016 8:46 PM CDT 05/26/2016 11:31 AM CDT Maye Prescott MD ECG ORDERABLES [facility] * LAB RESULTS ORDER (05/24/2016 5:53 PM CDT) Narrative 05/24/2016 5:53 PM CDT Ordered by an unspecified provider. Scanned Document LAB - THERAPEUTIC DR BAER MONITORING ORDERABLES * APHERESIS/TRANSFUSION ORDER (05/24/2016 5:53 PM CDT) Narrative 05/24/2016 5:53 PM CDT Ordered by an unspecified provider. Scanned Document NURSING - VITAL SIGN S AND ASSESSMENT * HGB HCT PANEL (05/23/2016 4:36 AM CDT) Only the most recent of2 resultswithin the time period is included. Hemoglobin 13.4 12.0 - 17.6 gm/dL 05/23/2016 5:16 AM CDT [facility] Hematocrit 39.3 35.2 - 51.7 % 05/23/2016 5:16 AM CDT [facility] Blood BLOOD SPECIMEN / Unknown 05/23/2016 4:36 AM CDT 05/23/2016 5:02 AM CDT Anthony Pritchett MD LAB - HEMATOLOGY ORD ERABLES [facility] [address] [place] [address] * XR SPINE LUMBAR SINGLE VIEW (05/22/2016 8:45 AM CDT) Anatomical Region Laterality Modality Spine Radiographic Tracy ging 05/22/2016 9:10 AM CDT Narrative 05/22/2016 9:38 AM CDT LUMBAR SPINE ONE VIEW INDICATION: ??Low back pain. FINDINGS: Single crosstable lateral view of the lumbar spine shows a posterior marker at the L5 level. There is intervertebral disc space narrowing L5-S1. Bony demineralization is present. Edited by Elysia Rizvi on 05/22/2016 9:17 AM Procedure Note Amandeep Chavez MD - 05/22/2016 LUMBAR SPINE ONE VIEW INDICATION: Low back pain. FINDINGS: Single crosstable lateral view of the lumbar spine shows a posterior marker at the L5 level. There is intervertebral disc space narrowing L5-S1. Bony demineralization is present. Edited by Elysia Rizvi on 05/22/2016 9:17 AM Anthony Pritchett MD DIAGNOSTIC IMAGING O RDERABLES * BLOOD TYPE VERIFICATION (05/22/2016 6:33 AM CDT) ABO O 05/22/2016 7:28 AM CDT [facility] Rh Type Positive 05/22/2016 7:28 AM CDT [facility] Miscellaneous samples (specimen) BLOOD SPECIMEN / Unknown 05/22/2016 6:33 AM CDT 05/22/2016 6:38 AM CDT Anthony Pritchett MD LAB - BLOOD BANK ORD ERABLES Performing Organization Address [facility]/[place] Co de Phone Number [facility] [address] [place] [address] * TYPE + SCREEN PANEL (05/22/2016 6:19 AM CDT) ABO O 05/22/2016 7:28 AM CDT [facility] Rh Type Positive 05/22/2016 7:28 AM CDT [facility] Comment:History check perfor med. Retype required. Antibody Screen Negative 05/22/2016 7:28 AM CDT [facility] Miscellaneous samples (specimen) BLOOD SPECIMEN / Unknown 05/22/2016 6:19 AM CDT 05/22/2016 6:25 AM CDT Soni Morales DO LAB - BLOOD BANK ORD [employer] Performing Organization Address [facility]/[place] Co de Phone Number [facility] [address] [place] [address] * CULTURE MSSA/MRSA (04/29/2016 9:26 AM CDT) Culture Negative for MRSA/MSSA IVELISSE 05/02/2016 2:13 PM CDT [facility] Microbiology SPECIMEN FROM NASAL FOSSAE / Unknown 04/29/2016 9:26 AM CDT 04/29/2016 9:44 AM CDT Anthony Pritchett MD LAB - MICROBIOLOGY O RDERABLES Performing Organization Address City/[facility]/[place] Co de Phone Number [facility] [address] [place] [address], [facility] [phone] * PAIN MANAGEMENT PROCEDURE TIME (03/12/2016 11:54 AM CDT) Only the most recent of2 resultswithin the time period is included. Anatomical Region Laterality Modality X-Ray Angiograph y Narrative 03/12/2016 11:59 AM CDT Heriberto Enriquez MD ? 03/12/2016 11:59 AM Transforaminal Right [id number] Nerve Root Injection Manuel Grimes [id number] 03/12/2016 Allergies Allergen Reactions ? ? Pcn [Penicillins] ?? Procedure: Transforaminal Right S1 Selective Nerve Root Steroid ?? Injection Under Fluoroscopy Indication for Procedure: Radicular pain in the lower extremity/Lumbar ??stenosis/Lumber HNP. ??M54.16 Informed Consent: After the patient, Manuel Grimes, was informed of the risks and benefits of the procedure and all questions were answered, the consent was signed. Prep:Patient identified, proper procedure and site verified, marked by Dr. Canales. ??In the prone position, right S1 foramen was identified under fluoroscopy and ??marked on the patient's skin. The skin was prepped in a routine sterile fashion using chloroprep. Responsible food mobile driver not needed as the patient is not having sedation. Under fluoroscopy, a 25 gauge, 3 1/2 inch spinal needle was slowly inserted towards the right S1 foramen after 1 % lidocaine MPF was used to anesthetize the skin , subcutaneous tissue and the muscle overlying the area.Once the tip of the needle was in proper position, 0.5ml of Omnipaque was slowly injected to outline the selective nerve root pattern. Symptoms were reproduced in the nerve root distribution. 1.0 ml of Dexamethasone 10 mg per ml ??and 3.0 ml of normal saline (preservative free) were injected in a slow, incremental fashion after aspiration revealed no blood or CSF return. The needle was removed, the skin was cleaned, and ensured no bleeding was noted. Total Lidocaine : 2ml Total Dexamethasone :10mg Total Omnipaque : 0.5ml The patient tolerated the procedure well without complications. The patient was taken to the recovery area and remained stable without complications. Vital signs stable. Injection site clean, dry, and intact. Post procedure instructions were given to the patient and follow up appointment was confirmed. The patient was discharged with information on how to reach the clinic at any time for questions or concerns. Patient ambulatory, denies complaints, DC to home. Patient survey given. Procedure codes: 34149 Heriberto Enriquez MD Heriberto Enriquez MD DIAGNOSTIC IMAGING O RDERABLES * IMAGING/RADIOLOGY/XRAY RESULTS ORDER (01/03/2016) Anatomical Region Laterality Modality Other Provider Unknown IMAGING Care Teams Piano Maker Relationship Specialty Start Date End Date Unknown, Provider PCP - General 02/11/24 Vinicius Abraham MD Internal Medicine 08/21/17 [place] [address] [place] [address] Anesthesiology-Pain Management 02/06/16
--- OUTSIDE RECORDS SUMMARY | 2024-09-01 02:18 | XMS_ITS | Continuity of Care Document ---
Author Organization [employer] [facility] Address [address] [place] [address] Phone Care Team Providers Care Senior Sales Representative Name Role Phone Kennedy Flower Unavailable Unavailable Procedures Procedure Date Post-op Follow-up Visit Post-op Follow-up Visit Eye Exam & Treatment Ophthalmoscopy, Subsequent Post-op Follow-up Visit Complex Extracapsular Cat Rem Oct--201 0 Office/outpatient Visit, Est [facility] Oct- Eye Exam & Treatment Ophthalmoscopy, Subsequent Optic Nerve Topography May- Post-op Follow-up Visit Ophthalmoscopy, Subsequent Post-op Follow-up Visit Ophthalmoscopy, Subsequent Eye Exam Established Pt Ophthalmoscopy, Subsequent Post-op Follow-up Visit Ophthalmoscopy, Subsequent Optic Nerve Topography Office/outpatient Visit, Est Ophthalmoscopy, Subsequent Eye Exam & Treatment Ophthalmoscopy, Subsequent Optic Nerve Topography Office/outpatient Visit, Est Eye Exam & Treatment Refraction Ophthalmoscopy, Subsequent Eye Exam Established Pt Ophthalmoscopy, Subsequent Office Consultation Ophthalmoscopy Ophthalmoscopy, Subsequent Treatment Of Retina Eye Exam, New Patient Advance Directives Directive Yes / No Effective Date File Name No Information Encounters Encounter Description Practice Location Reason(s) For Visit Diagnoses Date Provider Providers Copied on Encounter Merged with [facility], [address], [place], [place], [id number], tel:[phone] [facility] No Information 2 4-201 0 Doisy Edward. [address] , [address], [place], [place], [facility], [place]. tel:[phone] Merged with [facility], [address], [place], [place], [address], [place] tel:[phone] [facility] No Information Jun-1 0-201 0 Doisy Edward. [address] , [address], [place], [place], [facility], [place]. tel:[phone] Referring Provider: Lucian Higgins, [address] [place] [address], [facility]. tel:[phone] Merged with [facility], [address], [place], [place], [address], [place] tel:[phone] [facility] No Information Nov-0 8-201 0 Katarina Epstein. [address] [place] [address], [address], [place]. tel:[phone] Referring Provider: Lucian Higgins, [address] [place], [address]. tel:[phone] Merged with [facility], [address], [place], [place], [address], [place] tel:[phone] [facility] No Information 7-201 [address] , [address], [place], [address], [place]. tel:[phone] Referring Provider: Lucian Higgins, [address] [place], [address]. tel:[phone] [facility], [address], [place], [place], [id number], [place] tel:[phone] [facility] No Information Oct-2 6-201 [address], [place], [address], [place]. tel:[phone] Referring Provider: Lucian Higgins, [address] [place], [address]. tel:[phone] Office/outpati ent Visit, [facility], [address], [place], [place], [address], [place] tel:[phone] [facility] No Information Oct-0 6-201 0 Doisy Edward. [address], [place], [address], [place]. tel:[phone] Referring Provider: Lucian Higgins, [address] [place], [address]. tel:[phone] Merged with [facility], [address], [place], [place], [address], [place] tel:[phone] [facility] No Information Oct-0 4-201 0 Katarina Epstein. [address] [place], [address], [place]. tel:[phone] Referring Provider: Lucian Higgins, [address] [place], [address]. tel:[phone] Merged with [facility], [address], [place], [place], [address], [place] tel:[phone] [facility] No Information Sep-1 3-201 0 Katarina Epstein. [address] [place], [address], [place]. tel:[phone] Referring Provider: Lucian Higgins, [address] [place], [address]. tel:[phone] Merged with [facility], [address], [place], [place], [address], [place] tel:[phone] [facility] No Information Mar-3 0-201 0 Katarina Epstein. [address] [place], [address], [place]. tel:[phone] Referring Provider: Lucian Higgins, [address] [place], [address]. tel:[phone] Merged with [facility], [address], [place], [place], [address], [place] tel:[phone] [facility] No Information 6-201 0 Katarina Epstein. [address] [place], [address], [place]. tel:[phone] Referring Provider: Lucian Higgins, [address] [place], [address]. tel:[phone] Merged with [facility], [address], [place], [place], [address], [place] tel:[phone] [facility] [place] No Information 1 2-201 0 Katarina Epstein. [address] [place], [address], [place]. tel:[phone] Referring Provider: Lucian Higgins, [address] [place], [address]. tel:[phone] Office/outpati ent Visit, [facility], [address], [place], [place], [address], [place] tel:[phone] [facility] [place] No Information 0 5-201 0 Katarina Epstein. [address] [place], [address], [place]. tel:[phone] Referring Provider: Lucian Higgins, [address] [place], [address]. tel:[phone] [facility], [address], [place], [place], [address], [place] tel:[phone] [facility] No Information Fabian-2 1-201 0 Katarina Epstein. [address] [place], [address], [place]. tel:[phone] Referring Provider: Kennedy Torrez, [facility] [place] [address], [place], [address]. tel:[phone] Office/outpati ent Visit, [facility], [address], [place], [place], [address], [place] tel:[phone] [facility] No Information Fabian-1 8-201 0 Ching Beanvides. [facility] [facility] [place] , [address], [place], [address], [place]. tel:[phone] Merged with [facility], [address], [place], [place], [address], [place] tel:[phone] [facility] No Information Apr-1 5-201 0 Santiago OD James. [address] [place], [place] [address]ate [place] , [address], [place], [address], [place]. tel:[phone] Merged with [facility], [address] [place] [address] [address], [place], [place], [address], [place] tel:[phone] [facility] No Information Apr-1 3-200 9 Katarina Epstein. [address] [place], [address], [place]. tel:[phone] [facility], [address], [place], [place], [address], [place] tel:[phone] [facility] No Information Mar-3 0-200 9 Katarina Epstein. [address] [place], [address], [place]. tel:[phone] Referring Provider: Lucian Higgins, [address] [place], [address]. tel:[phone] Office Consultation [facility], [address] [place] [address] [address], [place], [place], [address], tel:[phone] [facility] No Information Oct-2 6-200 9 Katarina Epstein. [address] [place], [address], [place]. tel:[phone] Referring Provider: James Torrez, [address], [place], [facility]. tel:[phone] [facility], [address], [place], [place], [address], tel:[phone] [facility] No Information Oct-2 6-200 9 Santiago OD James. [address] , [address], [place], [address], [place]. tel:[phone] Family History Family Member Type Diagnosis Age At Onset No Information Payers Payer name Insurance type Covered constitution party ID Authoriza tion(s) No Information Social History Type Description Quantity Date Captured Comments Sex Male Smoking Status No Information Chief Complaint And Reason For Visit No Information Reason For Referral Reason For Referral No Information History Of Present Illness Encounter Date Complaint History Of Prese nt Illness No Information Functional Status Date Functional Assessmen t No Information Instructions Date Instruction Additional Infor mation No Information Assessments Type Assessment Date No Information Patient Care Teams Name Effective Dates (start - stop) Status Members No Information
--- OUTSIDE RECORDS SUMMARY | 2024-09-01 05:03 | XMS_ITS | Patient Health Summary ---
Author Organization [facility] Address [address] [place] [address] Care Team Providers Care Media Services Coordinator Name Role Phone Vinicius Abraham MD Unavailable Heriberto Enriquez MD Unavailable [phone] Unknown, Provider Primary Care Provider Unavaila ble Note from [facility],non-owned Affiliates and Associated Physician Practices is amultiple site organization consisting of ambulatory clinics and hospital sitesin [place], [place], [place] and [place]. This disclosure is being madepursuant to the Care Everywhere program and may not contain all information available regarding this patient. Last updated 18.[facility] Allergies * Penicillins(Rash) -Medium Criticality * Penicillins,Inactive [...] tablet by mouth once daily * B TJAYGVY-HFHIJH-TV PO Take 1 tablet by mouth once [...] (one) tablet by mouth once daily * S-Tnmlyjxurjfe-Hvagk-B12-B6 (Metanx) 3-90.314-2-35 MG capsule(Started 01/20/2024) * escitalopram [...] Height 182.9 cm (6') 09/09/2023 10:32 AM SET UP [employer] Body Mass Index 28.35 09/09/2023 10:32 AM [employer] UP [employer] Procedures * DERMATOPATHOLOGY(Performed 08/23/2024) * HEMOGLOBIN A1C [...] stage 3a or 3b CKD (HCC) * TN DRAIN/INJECT LARGE JOINT/BURSA(Performed 09/09/2023) Performed for Primary osteoarthritis of left knee * TN NASAL ENDOSCOPY,DX(Performed 08/25/2023) Performed for Epistaxis * TN CTRL NOSEBLEED,ANTER,COMPLEX(Performed 07/08/2023) Performed for Epistaxis * TN CTRL NOSEBLEED,ANTER,COMPLEX(Performed 10/01/2022) Performed for Epistaxis, Nasal crusting * HEMOGLOBIN A1C - POINT OF CARE (AMB) [facility](Performed 09/22/2022) Performed for Type 2 diabetes mellitus with stage 3 chronic kidney disease, without long-term current use of insulin, unspecified whether stage 3a or 3b CKD (HCC) * TN REMOVE CERUMEN IMPACTED W INSTR EVE(Performed 03/26/2022) Performed for Excessive cerumen in both ear canals * TN NASAL ENDOSCOPY,DX(Performed 03/14/2022) Performed for Nasal crusting * DERMATOPATHOLOGY(Performed 11/07/2021) * CT GUIDED NEEDLE PLACEMENT(Performed 10/12/2017) * CYTOLOGY NON-PRIVATE EQUITY ANALYST PANEL (STL)(Performed 10/12/2017) * COMPREHENSIVE METABOLIC PANEL(Performed [...] 01/11/2013) Results * DERMATOPATHOLOGY (08/23/2024 3:33 AM SET UP [employer]) Only the most recent of3 resultswithin the time period is included. Case Report Dermatopathology Report ? Case: [id number] ? Authorizing Provider: ??Soni Eastman MD ? Collected: ? 08/23/2024 03:33 AM ? Ordering Location: ? [facility] - ??Received: ?08/24/2024 01:04 PM ? DermPath Lab ? Pathologist: ? Ilene Chung MD ? Specimen: ?Skin, left mid scalp ? 5 2:29 PM [employer] DERMATOPATHOLOGY LABORATORY Final Diagnosis Specimen A. 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 The specimen consists of a shave biopsy measuring 9x6x3 mm. Jar 0. 5 2:29 PM [facility] DERMATOPATHOLOGY [facility]ORATORY Microscopic Description Specimen A. [...] of marked compact hyperkeratosis. 5 2:29 PM [facility] DERMATOPATH[facility] Disclaimer An external and internal positive and negative controls are appropriate for the histochemical, immunohistochemical and immunofluorescence stain(s) in this case (if any), except where stated explicitly. The performance characteristics of the stain(s) cited in this report were developed and its performance characteristic determined by the Dermatopathology Laboratory at [facility], directed by Dr. Luis Navas. These tests need not be, and therefore are not, approved by the [place] Food and Drug Administration. The tests are used for clinical purposes. Billing Codes Specimen Charges Stain Charges 62983 1 5 2:29 PM [facility] DERMATOP[facility] Embedded Images 5 2:29 PM [facility] Pathology/Cytolo gy TISSUE SPECIMEN FROM SKIN / Unknown 08/23/2024 3:33 AM [employer] UP [employer] 08/24/2024 1:04 PM [facility] Soni Eastman MD LAB - PATHOLOGY/CYT OLOGY ORDERABLES DERMATOPATHOLOGY LABORATORY [facility] - Department of Dermatology [address], [address] [phone] * HEMOGLOBIN A1C - POINT OF CARE (AMB) [facility] (04/01/2024 9:22 AM CDT) Only the most recent of3 resultswithin the time period is included. Hemoglobin A1c POCT 6.4 % [id number] BLOOD [address] / Unknown 04/01/2024 9:22 AM CDT Sandra Polanco MD LAB - POINT OF CARE ORDERABLES BURT Rodriguez [facility] [address] [facility], [place] [address], [facility] [phone] * TN DRAIN/INJECT LARGE JOINT/BURSA (09/09/2023 11:19 AM SET UP [employer]) Narrative Letitia Mccollum MD - 09/09/2023 11:19 AM [employer] Letitia Mccollum MD ? 09/09/2023 11:41 AM [...] Mccollum MD PROCEDURE/MINOR SURG ICAL ORDERABLES * TN NASAL ENDOSCOPY,DX (08/25/2023 2:06 PM [employer] UP [employer]) Narrative Nyla Camilo - 08/25/2023 2:06 PM [employer] Nyla Camilo ? 08/25/2023 ??2:15 PM Due [...] Fulton MD PROCEDURE/MINOR BROWN RGICAL ORDERABLES * TN CTRL NOSEBLEED,ANTER,COMPLEX (07/08/2023 3:27 PM [employer]) Tomás Nguyen MD - 07/08/2023 3:27 PM [employer] Tomás Fulton MD ? 07/09/2023 10:52 AM [...] Fulton MD PROCEDURE/MINOR BROWN RGICAL ORDERABLES * TN CTRL NOSEBLEED,ANTER,COMPLEX (10/01/2022 11:58 AM SET UP [employer]) Tomás Nguyen MD - 10/01/2022 11:58 AM [employer] Tomás Fulton MD ? 10/01/2022 11:59 AM [...] Fulton MD PROCEDURE/MINOR BROWN RGICAL ORDERABLES * TN REMOVE CERUMEN IMPACTED W INSTR EVE (03/26/2022 [...] Fulton MD PROCEDURE/MINOR BROWN RGICAL ORDERABLES * TN NASAL ENDOSCOPY,DX (03/14/2022 11:12 AM CDT) Narrative [...] CT GUIDED NEEDLE PLACEMENT (10/12/2017 9:32 AM SET UP [employer]) Anatomical Region Laterality Modality Abdomen Other Impressions 10/13/2017 7:39 PM [employer] Impression: Ultrasound-guided fine needle aspiration of an [...] 7:39 PM . Narrative 10/13/2017 7:39 PM [employer] History: 77 year old male with incidentally [...] performed. The samples were evaluated by the hot plate press operator on site. A final post-biopsy image did [...] were performed. The samples wereevaluated by the hot plate press operator on site. A final post-biopsy image did [...] Donavan Alaniz MD CT ORDERABLES * CYTOLOGY NON-PRIVATE EQUITY ANALYST PANEL (STL) (10/12/2017 9:00 AM [employer] UP [employer]) Cytology Non-Supervisor Final Accession No: [id number] Reference: [id number] Specimen: RIGHT THYROID Clinical History: incidental thyroid [...] Ramy Beasley M.D Ph.D. Electronically signed 10/14/2017 [facility] Other (qualifier value) 10/12/2017 9:00 AM [employer] UP [employer] 10/12/2017 10:52 AM [employer] Narrative [facility] - 10/14/2017 8:44 AM [employer] Diagnosis->Thyroid Nodule Collection Date->10/12/17 Collection Time-> 9:15 AM Specimen A->Thyroid Heladio Adhikari MD LAB - PATHOLOGY/C YTOLOGY ORDERABLES Performing Organization Address [facility]/ZIP Co de Phone Number [facility] [address] [phone] * PT-INR [facility] (10/12/2017 6:46 AM SET UP [employer]) PT 13.3 12.1 - 14.8 Seconds [facility] INR 1.0 See Comment [facility] Comment: Suggested therapeutic range for low-intensity coumadin therapy for venous thromboembolism prophylaxis is an INR of 2.0-3.0. ??For high risk patients (Mitral Valve Prosthesis, Atrial Fibrillation, history of TIA/stroke), suggested prophylactic therapeutic range is an INR of 2.5-3.5. Blood specimen (specimen) BLOOD SPECIMEN / Unknown 10/12/2017 6:46 AM [employer] 10/12/2017 6:48 AM [employer] Narrative [facility] - 10/12/2017 7:01 AM SET [employer] Is patient on Heparin, Argatroban or Dabigatran?->N Heladio Adhikari MD LAB - COAGULATION ORDERABLES Performing Organization Address [facility] Co de Phone Number [facility] [address] [place] [address] * (ABNORMAL) COMPREHENSIVE METABOLIC PANEL (10/12/2017 6:46 AM SET UP [employer]) Only the most recent of2 resultswithin the time period is included. BUN 28(H) 7 - 26 mg/dL [facility] Creatinine 1.2 0.6 - 1.2 mg/dL [facility] Sodium 141 136 - 145 mmol/L [facility] Potassium 4.4 3.5 - 4.5 mmol/L [facility] Chloride 103 98 - 107 mmol/L [facility] CO2 26 22 - 29 mmol/L [facility] Glucose 146(H) 70 - 115 mg/dL [facility] Calcium 9.1 8.4 - 10.2 mg/dL [facility] Protein Total 7.3 6.0 - 8.3 g/dL [facility] Albumin 3.8 3.4 - 5.0 g/dL [facility] Bilirubin Total 0.8 0.2 - 1.2 mg/dL [facility] Alkaline Phosphatase 59 40 - 150 Units/L [facility] ALT 35 0 - 55 Units/L [facility] AST 29 5 - 34 Units/L [facility] Anion Gap 16 8 - 18 [facility] BUN/Creatinine Ratio 23 7 - 23 [facility] Osmolality Calculated 300 270 - 300 mOsm/kg [facility] Albumin/Globulin Ratio 1.1 1.1 - 2.3 [facility] eGFR 59(L) >60 mL/min/1.7 3 m2 [facility] Blood specimen (specimen) BLOOD SPECIMEN / Unknown 10/12/2017 6:46 AM [employer] UP [employer] 10/12/2017 6:48 AM [employer] Heladio Adhikari MD LAB - CHEMISTRY O RDERABLES Performing Organization Address City/State/[facility] Co de Phone Number [address] [phone] * CBC W AUTO DIFFERENTIAL (10/12/2017 6:46 AM SET UP [employer]) Only the most recent of4 resultswithin the time period is included. WBC 7.8 3.5 - 10.5 10? 3 /uL [facility] RBC 4.97 4.30 - 5.70 10? 6 /uL [facility] Hemoglobin 15.1 13.5 - 17.5 g/dL [facility] Hematocrit 44.7 39.0 - 50.0 % [facility] MCV 89.9 81.0 - 97.0 fL [facility] MCH 30.4 28.0 - 34.0 pg [facility] MCHC 33.8 32.0 - 36.0 g/dL [facility] Platelet Count 161 150 - 400 10? 3 /uL [facility] RDW-SD 41.0 36.0 - 50.0 fL [facility] RDW-CV 12.6 11.2 - 14.8 % [facility] MPV 11.6 9.3 - 12.8 fL [facility] Neutrophils % 66.0 35.0 - 70.0 % [facility] Lymphocytes % 24.6 19.7 - 55.1 % [facility] Monocytes % 7.1 3.0 - 15.0 % [facility] Eosinophils % 1.9 0.0 - 6.0 % [facility] Basophil % 0.4 0.0 - 1.5 % [facility] Neutrophils Absolute 5.2 1.6 - 7.0 10? 3 /uL [facility] Lymphocyte Absolute 1.9 0.8 - 2.9 10? 3 /uL [facility] Monocytes Absolute 0.56 0.14 - 0.66 10? 3 /uL [facility] Eosinophils Absolute 0.15 0.00 - 0.22 10? 3 /uL [facility] Basophils Absolute 0.03 0.00 - 0.06 10? 3 /uL [facility] Immature Granulocytes % 0.1 0.0 - 1.0 % [facility] Blood specimen (specimen) BLOOD SPECIMEN / Unknown 10/12/2017 6:46 AM SET UP [employer] 10/12/2017 6:48 AM [employer] Heladio Adhikari MD LAB - HEMATOLOGY ORDERABLES Performing Organization Address City/State/[facility] Co de Phone Number [address] [phone] * CARDIAC EKG ORDER (05/27/2016 7:37 PM [...] POINT OF CARE ORDERABLES Performing Organization Address [facility] Co de Phone Number [facility] [address] [place] [address] * (ABNORMAL) HEMOGLOBIN A1C (05/26/2016 4:05 AM CDT) Hemoglobin A1c 6.6(H) 4.2 - 6.3 % 05/26/2016 5:04 AM CDT [facility] Estimated Average Glucose 143 mg/dL 05/26/2016 5:04 AM CDT [facility] Whole Blood BLOOD SPECIMEN WITH EDTA / Unknown 05/26/2016 4:05 AM CDT 05/26/2016 4:13 AM CDT Maye Prescott MD LAB - CHEMISTRY MAGGIE VILLAR Performing Organization Address [facility] de Phone Number [facility] [address] [place] [address] * (ABNORMAL) BASIC METABOLIC PANEL (CALCIUM TOTAL) (05/26/2016 4:05 AM CDT) Only the most recent of2 resultswithin the time period is included. Glucose 231(H) 74 - 106 mg/dL 05/26/2016 4:32 AM CDT [facility] Sodium 137 136 - 145 mmol/L 05/26/2016 4:32 AM CDT [facility] Potassium 4.3 3.5 - 5.1 mmol/L 05/26/2016 4:32 AM CDT [facility] Chloride 103 98 - 107 mmol/L 05/26/2016 4:32 AM CDT [facility] CO2 28 22 - 31 mmol/L 05/26/2016 4:32 AM CDT [facility] Calcium 8.7 8.5 - 10.1 mg/dL 05/26/2016 4:32 AM CDT [facility] Anion Gap 6 5 - 20 mmol/L 05/26/2016 4:32 AM CDT [facility] BUN 27(H) 7 - 21 mg/dL 05/26/2016 4:32 AM CDT [facility] Creatinine 1.00 0.50 - 1.30 mg/dL 05/26/2016 4:32 AM CDT [facility] eGFR by MDRD >60 mL/min/1.7 3m2 05/26/2016 4:32 AM CDT [facility] eGFR by MDRD >60 mL/min/1.7 3m2 05/26/2016 4:32 AM CDT [facility] Blood BLOOD SPECIMEN / Unknown 05/26/2016 4:05 AM CDT 05/26/2016 4:13 AM CDT Jonah Boone MD LAB - CHEMISTRY MAGGIE VILLAR Performing Organization Address [facility] Co de Phone Number [facility] [address] [place] [address] * TROPONIN I (05/25/2016 2:59 AM CDT) Only the most recent of3 resultswithin the time period is included. Troponin I 0.033 0.000 - 0.049 ng/mL 05/25/2016 3:32 AM CDT [facility] Blood BLOOD SPECIMEN / Unknown 05/25/2016 2:59 AM CDT 05/25/2016 3:09 AM CDT Narrative [facility] - 05/25/2016 3:32 AM CDT Note: [...] - CHEMISTRY MAGGIE VILLAR Performing Organization Address [facility] Co de Phone Number [facility] [address] [place] [address] * (ABNORMAL) PT PTT PANEL (05/25/2016 12:48 AM CDT) PT 13.1(H) 9.5 - 11.6 sec 05/25/2016 1:19 AM CDT [facility] INR 1.3(H) 0.9 - 1.1 05/25/2016 1:19 AM CDT [facility] PTT 26.3 21.0 - 32.0 sec 05/25/2016 1:19 AM CDT [facility] Blood BLOOD SPECIMEN / Unknown 05/25/2016 12:48 AM CDT 05/25/2016 12:51 AM CDT Narrative [facility] - 05/25/2016 1:19 AM CDT Conventional Warfarin Anticoagulant Therapy: INR Reference Range: ??2.0-3.0 Intensive Warfarin Anticoagulant Therapy: INR Reference Range: ? 2.5-3.5 Heparin Therapeutic Range for PTT: 47.7 - 68.6 seconds. Gutierrez Hassan MD LAB - COAGULATION OR DERABLES [facility] [address] [place] [address] * (ABNORMAL) URINALYSIS ROUTINE W/REFLEX TO CULTURE (05/25/2016 12:10 AM CDT) Only the most recent of2 resultswithin the time period is included. Color UA Dark Yellow Straw, Yellow, Dark Yellow 05/25/2016 12:22 AM CDT [facility] Clarity UA Turbid 05/25/2016 12:22 AM CDT [facility] Specific [place] UA 1.028 1.005 - 1.030 05/25/2016 12:22 AM CDT [facility] pH UA 5.5 5.0 - 8.0 pH 05/25/2016 12:22 AM CDT [facility] Protein UA 1+(A) Negative 05/25/2016 12:22 AM CDT [facility] Blood UA 3+(A) Negative 05/25/2016 12:22 AM CDT [facility] Leukocyte UA Negative Negative 05/25/2016 12:22 AM CDT [facility] Nitrite UA Negative Negative 05/25/2016 12:22 AM CDT [facility] Glucose UA Negative Negative 05/25/2016 12:22 AM CDT [facility] Ketone UA 2+(A) Negative 05/25/2016 12:22 AM CDT [facility] Bilirubin UA Negative Negative 05/25/2016 12:22 AM CDT [facility] Urobilinogen UA 0.2 0.1 - 1.0 EU/dL 05/25/2016 12:22 AM CDT [facility] WBC UA Auto 2-5 0-2, 2-5 # /hpf 05/25/2016 12:22 AM CDT [facility] RBC UA Auto >100(A) 0-2, 2-5 # /hpf 05/25/2016 12:22 AM CDT [facility] Epithelial Cell UA Auto 0-2 0-2, 2-5 # /hpf 05/25/2016 12:22 AM CDT [facility] Bacteria UA Auto None seen None seen 05/25/2016 12:22 AM CDT [facility] Hyaline Casts UA Auto 0-2 0 - 2 #/lpf 05/25/2016 12:22 AM CDT [facility] Reflex Status Culture not indicated 05/25/2016 12:22 AM CDT [facility] Urine URINE SPECIMEN OBTAINED BY CLEAN CATCH PROCEDURE / Unknown 05/25/2016 12:10 AM CDT 05/25/2016 12:13 AM CDT Maye Prescott MD LAB - URINALYSIS ORD ERABLES [facility] [address] [place] [address] * XR LUMBAR SPINE 2 [...] 11:3 4 PM CDT Addenda Addendum by Anrdes Harden MD on 05/25/2016 7:07 PM CDT [...] (Bezet) 435 ms [facility] MUSE Calculated P [place] 47 degrees [facility] MUSE Calculated R [place] 6 degrees [facility] MUSE Calculated T [place] 9 degrees [facility] MUSE Interpretation EKG Normal [...] - 17.6 gm/dL 05/23/2016 5:16 AM CDT [facility] Hematocrit 39.3 35.2 - 51.7 % 05/23/2016 5:16 AM CDT [facility] Blood BLOOD SPECIMEN / Unknown 05/23/2016 4:36 AM CDT 05/23/2016 5:02 AM CDT Anthony Pritchett MD LAB - HEMATOLOGY ORD ERABLES [facility] [address] [place] [address] * XR SPINE LUMBAR SINGLE VIEW (05/22/2016 [...] CDT) ABO O 05/22/2016 7:28 AM CDT [facility] Rh Type Positive 05/22/2016 7:28 AM CDT [facility] Miscellaneous samples (specimen) BLOOD SPECIMEN / Unknown 05/22/2016 6:33 AM CDT 05/22/2016 6:38 AM CDT Anthony Pritchett MD LAB - BLOOD BANK ORD ERABLES Performing Organization Address [facility] Co de Phone Number [facility] [address] [place] [address] * TYPE + SCREEN PANEL (05/22/2016 6:19 AM CDT) ABO O 05/22/2016 7:28 AM CDT [facility] Rh Type Positive 05/22/2016 7:28 AM CDT [facility] Comment:History check perfor med. Retype required. Antibody Screen Negative 05/22/2016 7:28 AM CDT [facility] Miscellaneous samples (specimen) BLOOD SPECIMEN / Unknown 05/22/2016 6:19 AM CDT 05/22/2016 6:25 AM CDT Soni Morales DO LAB - BLOOD BANK ORD [employer] Performing Organization Address [facility] Co de Phone Number [facility] [address] [place] [address] * CULTURE MSSA/MRSA (04/29/2016 9:26 AM CDT) Culture Negative for MRSA/MSSA IVELISSE 05/02/2016 2:13 PM CDT [facility] MICRO[facility] Microbiology SPECIMEN FROM NASAL FOSSAE / Unknown 04/29/2016 9:26 AM CDT 04/29/2016 9:44 AM CDT Anthony Pritchett MD LAB - MICROBIOLOGY O RDERABLES Performing Organization Address City/[facility] Co de Phone Number [facility] MICROBIOLOGY [address] [place] [address], [facility] [phone] * PAIN MANAGEMENT PROCEDURE TIME (03/12/2016 11:54 AM CDT) Only the most recent of2 resultswithin the time period is included. Anatomical Region Laterality Modality X-Ray Angiograph y Narrative 03/12/2016 11:59 AM CDT Heriberto Enriquez MD ? 03/12/2016 11:59 AM Transforaminal Right X8Cupnarile Nerve Root Injection Manuel Grimes [id number] 03/12/2016 Allergies Allergen Reactions ? ? Pcn [...] a routine sterile fashion using chloroprep. Responsible nascar driver not needed as the patient is [...] to home. Patient survey given. Procedure codes: 52370 Heriberto Enriquez MD Heriberto Enriquez MD DIAGNOSTIC IMAGING O RDERABLES * IMAGING/RADIOLOGY/XRAY RESULTS ORDER (01/03/2016) Anatomical Region Laterality Modality Other Provider Unknown IMAGING Care Teams Media Services Coordinator Relationship Specialty Start Date End Date Unknown, Provider PCP - General 02/11/24 Vinicius Abraham MD Internal Medicine 08/21/17 [place] [address] [place] [address] Anesthesiology-Pain Management 02/06/16
--- OUTSIDE RECORDS SUMMARY | 2024-09-01 05:03 | XMS_ITS | Encounter Summary ---
Author Organization [facility] Address [facility]3 [facility] [place] [address] Care Team Providers Care Poultry Hatchery Supervisor Name Role Phone Vinicius Abraham MD Primary Care Provider [phone] Vinicius Abraham MD Unavailable [phone] Heriberto Enriquez MD Unavailable [phone] Maxwell Carrizales DO Primary Care Provider [phone] Leda Burch Primary Care Provider [phone] Unknown, Provider Primary Care Provider Unavaila ble Encounter Details Date Type Department Care Team (Late st Contact Info) Description 11/07/2021 Lab Requisition [facility] Care DermPath Lab [address] [facility], [place] [address] Soni Eastman MD [address] [facility] 3 [place] [address] Social History Tobacco Use Types Packs/Day Years [...] st Contact Info) Description 10/07/2024 8:30 AM UNIVERSITY ADMINISTRATIVE ASSISTANT Office Visit [facility] [address] [facility], [place] [address] Sandra Polanco MD [address] [place] [address] documented as of this encounter Procedures Procedure Name Priority Date/Time Associated Diagnosis Comments DERMATOPATHOLOGY Routine 11/07/2021 12:0 0 AM CDT documented in this encounter Results * DERMATOPATHOLOGY (11/07/2021 12:00 AM CDT) Case Report Dermatopathology Report ? Case: [id number] ? Authorizing Provider: ??Soni Eastman MD ? Collected: ? 11/07/2021 12:00 AM ? Ordering Location: ? [facility] Care DermPath Lab ?Received: ?11/07/2021 04:42 PM [...] characteristic determined by the Dermatopathology Laboratory at [facility], directed by Dr. Luis Navas. These tests need not be, and therefore are not, approved by the [place] Food and Drug Administration. The tests are used for clinical purposes. Billing Codes Specimen Charges Stain Charges 35279 1 17842 1 12:37 PM CDT DERMATOPATHOLOGY LABORATORY Embedded Images 12:37 PM T DERMATOPATHOLOGY LABORATORY Pathology/Cytolog y TISSUE SPECIMEN FROM SKIN / Unknown 11/07/2021 11/07/2021 4:42 PM CDT Soni Eastman MD LAB - PATHOLOGY/CYT OLOGY ORDERABLES DERMATOPATHOLOGY LABORATORY [facility] - Department of Dermatology [place] [address] [facility], [address]rd Floor [address] [phone] documented in this encounter Visit Diagnoses Not on filedocumented in this encounter Care Teams Poultry Hatchery Supervisor Relationship Specialty Start Date End Date Vinicius Abraham MD [address] [place] [address] PCP - General 08/21/17 03/13/22 Maxwell Carrizales DO [address] [place] [address] PCP - General 03/14/22 08/24/23 Leda Burch PA [address] [place] [address] PCP - General Nurse Practitioner Primary Care 08/25/23 02/10/24 Unknown, Provider PCP - General 02/11/24 Vinicius Abraham MD [address] [place] [address] Internal Medicine 08/21/17 [place] [address] [address] Anesthesiology-Pain Management 02/06/16 documented as of this encounter
--- OUTSIDE RECORDS SUMMARY | 2024-09-01 05:03 | XMS_ITS | Encounter Summary ---
Author Organization [facility] Address [address] [facility] [place] [address] Care Team Providers Care Behavioral Sciences Instructor Name Role Phone Vinicius Abraham MD Unavailable [phone] Heriberto Enriquez MD Unavailable [phone] Unknown, Provider Primary Care Provider Unavaila ble Encounter Details Date Type Department Care Team (Late st Contact Info) Description 08/24/2024 Lab Requisition [facility] - DermPath Lab [address] [facility], [place] [address] Soni Eastman MD [address] [facility] 3 [place] [address] Social History Tobacco Use Types Packs/Day Years [...] st Contact Info) Description 10/07/2024 8:30 AM ARMORED CAR DRIVER Office Visit [facility] [address] [facility], [place] [id number] Sandra Polanco MD [address] [place] [address] documented as of this encounter Procedures Procedure Name Priority Date/Time Associated Diagnosis Comments DERMATOPATHOLOGY Routine 08/23/2024 3:33 AM ARMORED CAR DRIVER documented in this encounter Results * DERMATOPATHOLOGY (08/23/2024 3:33 AM ARMORED CAR DRIVER) Case Report Dermatopathology Report ? Case: [id number] ? Authorizing Provider: ??Soni Eastman MD ? Collected: ? 08/23/2024 03:33 AM ? Ordering Location: ? [facility] - ??Received: ?08/24/2024 01:04 PM ? DermPath Lab ? Pathologist: ? Ilene Chung MD ? Specimen: ?Skin, left mid scalp ? 5 2:29 PM [facility] DERMATOPATHOLOGY LABORATORY Final Diagnosis Specimen A. 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 The specimen consists of a shave biopsy measuring 9x6x3 mm. Jar 0. 5 2:29 PM [facility] DERMATOPATHOLOGY LABORATORY Microscopic Description Specimen A. [...] marked compact hyperkeratosis. 5 2:29 PM [facility] DERMATOPATHOLOGY LABORATORY Disclaimer An external and internal positive and negative controls are appropriate for the histochemical, immunohistochemical and immunofluorescence stain(s) in this case (if any), except where stated explicitly. The performance characteristics of the stain(s) cited in this report were developed and its performance characteristic determined by the Dermatopathology Laboratory at [facility], directed by Dr. Luis Navas. These tests need not be, and therefore are not, approved by the [place] Food and Drug Administration. The tests are used for clinical purposes. Billing Codes Specimen Charges Stain Charges 42138 1 5 2:29 PM ARMORED CAR DRIVER DERMATOPATHOLOGY LABORATORY Embedded Images 5 2:29 PM ARMORED CAR DRIVER DERMATOPATHOLOGY LABORATORY Pathology/Cytolo gy TISSUE SPECIMEN FROM SKIN / Unknown 08/23/2024 3:33 AM ARMORED CAR DRIVER 08/24/2024 1:04 PM ARMORED CAR DRIVER Soni Eastman MD LAB - PATHOLOGY/CYT OLOGY ORDERABLES DERMATOPATHOLOGY LABORATORY [facility] - Department of Dermatology [address], [address] [phone] documented in this encounter Visit Diagnoses Not on filedocumented in this encounter Care Teams Behavioral Sciences Instructor Relationship Specialty Start Date End Date Unknown, Provider PCP - General 02/11/24 Vinicius Abraham MD Internal Medicine 08/21/17 [place] [address] [address] Anesthesiology-Pain Management 02/06/16 documented as of this encounter
--- OUTSIDE RECORDS SUMMARY | 2024-09-01 05:03 | XMS_ITS | Continuity of Care Document ---
Author Organization [facility] Address [address] [address] [place] [address] Phone Care Team Providers Care Brand Planner Name Role Phone Kennedy Flower Unavailable Unavailable [...] Diagnoses Date Provider Providers Copied on Encounter [facility], [address], [place], [place], [id number], tel:[phone] [facility] No Information 2 4-201 0 Doisy Edward. [address], [place], [place], [facility], [place]. tel:[phone] [facility], [address], [place], [place], [address], [place] tel:[phone] [facility] No Information Jun-1 0-201 0 Doisy Edward. [address] , [address], [place], [place], [facility], [place]. tel:[phone] Referring Provider: Lucian Higgins, [address] [place] [address], [facility]. tel:[phone] [facility], [address], [place], [place], [id number], [place] tel:[phone] [facility] No Information Nov-0 8-201 0 Katarina Epstein. [address] [place] [address], [address], [place]. tel:[phone] Referring Provider: Lucian Higgins, [address] [place], [address]. tel:[phone] [facility], [address], [place], [place], [address], [place] tel:[phone] [facility] No Information 7-201 0 Doisy Edward. [address] , [address], [place], [address], [place]. tel:[phone] Referring Provider: Lucian Higgins, [address] [place], [address]. tel:[phone] [facility], [address], [place], [place], [id number], [place] tel:[phone] [facility] No Information Oct-2 6-201 0 Doisy Edward. [address], [place], [address], [place]. tel:[phone] Referring Provider: Lucian Higgins, [address] [place], [address]. tel:[phone] Office/outpati ent Visit, [facility], [address], [place], [place], [address], [place] tel:[phone] [facility] No Information Oct-0 6-201 0 Doisy Edward. [address] [facility] [address], [place], [address], [place]. tel:[phone] Referring Provider: Lucian Higgins, [address] [place], [address]. tel:[phone] [facility], [address], [place], [place], [address], [place] tel:[phone] [facility] No Information Oct-0 4-201 0 Katarina Epstein. [address] [place], [address], [place]. tel:[phone] Referring Provider: Lucian Higgins, [address] [place], [address]. tel:[phone] [facility], [address], [place], [place], [address], [place] tel:[phone] [facility] No Information Sep-1 3-201 0 Katarina Epstein. [address] [place], [address], [place]. tel:[phone] Referring Provider: Lucian Higgins, [address] [place], [address]. tel:[phone] [facility], [address], [place], [place], [address], [place] tel:[phone] [facility] No Information Mar-3 0-201 0 Katarina Epstein. [address] [place], [address], [place]. tel:[phone] Referring Provider: Lucian Higgins, [address] [place], [address]. tel:[phone] [facility], [address], [place], [place], [id number], [place] tel:[phone] [facility] No Information 6-201 0 Katarina Epstein. [address] [place], [address], [place]. tel:[phone] Referring Provider: Lucian Higgins, [address] [place], [address]. tel:[phone] [facility], [address], [place], [place], [address], [place] tel:[phone] [facility] [place] No Information 1 2-201 0 Katarina Epstein. [address] [place], [address], [place]. tel:[phone] Referring Provider: Lucian Higgins, [address] [place], [address]. tel:[phone] Office/outpati ent Visit, [facility], [address], [place], [place], [address], [place] tel:[phone] SEC [facility] [place] No Information 0 5-201 0 Katarina Epstein. [address] [place], [address], [place]. tel:[phone] Referring Provider: Lucian Higgins, [address] [place], [address]. tel:[phone] [facility], [address], [place], [place], [address], [place] tel:[phone] [facility] No Information Fabian-2 1-201 0 Katarina Epstein. [address] [place], [address], [place]. tel:[phone] Referring Provider: Kennedy Torrez, [facility], [place], [address]. tel:[phone] Office/outpati ent Visit, [facility], [address], [place], [place], [address], [place] tel:[phone] [facility] No Information Fabian-1 8-201 0 Ching Benavides. [facility] , [address], [place], [address], [place]. tel:[phone] [facility], [address], [place], [place], [id number], [place] tel:[phone] [facility] No Information Apr-1 5-201 0 Santiago OD James. [address] [place], [place] [address] [place] , [address], [place], [address], [place]. tel:[phone] [facility], [address] [place] [address] [address], [place], [place], [address], [place] tel:[phone] [facility] No Information Apr-1 3-200 9 Katarina Epstein. [address] [place], [address], [place]. tel:[phone] [facility], [address], [place], [place], [address], [place] tel:[phone] [facility] No Information Mar-3 0-200 9 Katarina Epstein. [address] [place], [address], [place]. tel:[phone] Referring Provider: Lucian Higgins, [address] [place], [address]. tel:[phone] Office Consultation [facility], [address] [place] [address] [address], [place], [place], [id number], tel:[phone] [facility] No Information Oct-2 6-200 9 Katarina Epstein. [address] [place], [address], [place]. tel:[phone] Referring Provider: James Torrez, [address], [place], [place], [facility]. tel:[phone] [facility], [address], [place], [place], [address], tel:[phone] [facility] No Information Oct-2 6-200 9 Santiago OD James. [address] , [address], [place], [address], [place]. tel:[phone] Family History Family Member Type Diagnosis Age At Onset No Information Payers Payer name Insurance type Covered democrat ID Authoriza tion(s) No Information Social History [...]
--- OUTSIDE RECORDS SUMMARY | 2024-09-01 05:03 | XMS_ITS | Clinical Summary ---
Author Organization [facility] Address [address] [place] [address] Care Team Providers Care Regional Production Manager Name Role Phone Vinicius Abraham MD Unavailable [phone] Heriberto Enriquez MD Unavailable [phone] Unknown, Provider Primary Care Provider Unavaila ble Source Comments [facility],non-owned Affiliates and Associated Physician Practices is amultiple site organization consisting of ambulatory clinics and hospital sitesin [place], [place], [place] and [place]. This disclosure is being madepursuant to the Care Everywhere program and may not contain all information available regarding this patient. Last updated 18.[facility] Allergies Active Allergy Reactions Criticality Noted Date [...] tablet by mouth once daily Active B KVZUITY-FVKEQE-PP PO Take 1 tablet by mouth once [...] tablet by mouth once daily 03/16/2024 Active I-Hwitjsrjgtqv-Dainu -B12-B6 (Metanx) 3-90.314-2-35 MG capsule 01/20/2024 Active [...] Department Care Team Description 08/24/2024 Lab Requisition [facility] - DermPath Lab [address] [place] [address] Soni Eastman MD from Last 3 Months [...] Height 182.9 cm (6') 09/09/2023 10:32 AM INTERIOR DESIGN FACULTY MEMBER Body Mass Index 28.35 09/09/2023 10:32 AM INTERIOR DESIGN FACULTY MEMBER Plan of Treatment Upcoming Encounters Date Type Department Care Team (Late st Contact Info) Description 10/07/2024 8:30 AM INTERIOR DESIGN FACULTY MEMBER Office Visit [facility]s [address] [place] [id number] Sandra Polanco MD [address] [place] [address] Health Maintenance Due Date Last Done Comments [...] Diagnosis Comments DERMATOPATHOLOGY Routine 08/23/2024 3:33 AM INTERIOR DESIGN FACULTY MEMBER HEMOGLOBIN A1C - POINT OF CARE (AMB) [facility] Routine 04/01/2024 9:22 AM CDT Type 2 diabetes mellitus with stage 3 chronic kidney disease, without long-term current use of insulin, unspecified whether stage 3a or 3b CKD (HCC) COMPREHENSIVE METABOLIC PANEL STAT 10/12/2017 6:46 AM INTERIOR DESIGN FACULTY MEMBER from Last 3 Months or Most Recently Relevant to Health Maintenance Results * DERMATOPATHOLOGY (08/23/2024 3:33 AM INTERIOR DESIGN FACULTY MEMBER) Case Report Dermatopathology Report ? Case: [id number] ? Authorizing Provider: ??Soni Eastman MD ? Collected: ? 08/23/2024 03:33 AM ? Ordering Location: ? [facility] - ??Received: ?08/24/2024 01:04 PM ? DermPath Lab ? Pathologist: ? Ilene Chung MD ? Specimen: ?Skin, left mid scalp ? 2:29 PM [facility] DERMATOPATHOLOGY LABORATORY Final Diagnosis Specimen A. 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 The specimen consists of a shave biopsy measuring 9x6x3 mm. Jar 0. 2:29 PM [facility] DERMATOPATHOLOGY LABORATORY Microscopic Description Specimen [...] column of marked compact hyperkeratosis. 2:29 PM [facility] DERMATOPATHOLOGY LABORATORY Disclaimer An external and internal positive and negative controls are appropriate for the histochemical, immunohistochemical and immunofluorescence stain(s) in this case (if any), except where stated explicitly. The performance characteristics of the stain(s) cited in this report were developed and its performance characteristic determined by the Dermatopathology Laboratory at [facility], directed by Dr. Luis Navas. These tests need not be, and therefore are not, approved by the [place] Food and Drug Administration. The tests are used for clinical purposes. Billing Codes Specimen Charges Stain Charges 35426 1 2:29 PM [facility] DERMATOPATHOLOGY LABORATORY Embedded Images 2:29 PM [facility] DERMATOPATHOLOGY [facility]ORATORY Pathology/Cytolo gy TISSUE SPECIMEN FROM SKIN / Unknown 08/23/2024 3:33 AM INTERIOR DESIGN FACULTY MEMBER 08/24/2024 1:04 PM INTERIOR DESIGN FACULTY MEMBER Soni Eastman MD LAB - PATHOLOGY/CYT OLOGY ORDERABLES DERMATOPATHOLOGY LABORATORY [facility] - Department of Dermatology [facility] [address]rd [place] [address], [facility] [phone] * HEMOGLOBIN A1C - POINT OF CARE (AMB) [facility] (04/01/2024 9:22 AM CDT) Hemoglobin A1c POCT 6.4 % [address] BLOOD SPECIMEN / Unknown 04/01/2024 9:22 AM CDT Sandra Polanco MD LAB - POINT OF CARE ORDERABLES [address] [place] [address], [facility] [phone] * (ABNORMAL) COMPREHENSIVE METABOLIC PANEL (10/12/2017 6:46 AM INTERIOR DESIGN FACULTY MEMBER) BUN 28(H) 7 - 26 mg/dL [facility] Creatinine 1.2 0.6 - 1.2 mg/dL [facility] Sodium 141 136 - 145 mmol/L [facility] Potassium 4.4 3.5 - 4.5 mmol/L [facility] Chloride 103 98 - 107 mmol/L [facility] CO2 26 22 - 29 mmol/L [facility] Glucose 146(H) 70 - 115 mg/dL [facility] Calcium 9.1 8.4 - 10.2 mg/dL [facility] Protein Total 7.3 6.0 - 8.3 g/dL [facility] Albumin 3.8 3.4 - 5.0 g/dL [facility] Bilirubin Total 0.8 0.2 - 1.2 mg/dL [facility] Alkaline Phosphatase 59 40 - 150 Units/L [facility] ALT 35 0 - 55 Units/L [facility] AST 29 5 - 34 Units/L [facility] Anion Gap 16 8 - 18 [facility] BUN/Creatinine Ratio 23 7 - 23 [facility] Osmolality Calculated 300 270 - 300 mOsm/kg [facility] Albumin/Globulin Ratio 1.1 1.1 - 2.3 [facility] eGFR 59(L) >60 mL/min/1.7 3 m2 [facility] Blood specimen (specimen) BLOOD SPECIMEN / Unknown 10/12/2017 6:46 AM INTERIOR DESIGN FACULTY MEMBER 10/12/2017 6:48 AM INTERIOR DESIGN FACULTY MEMBER Heladio Adhikari MD LAB - CHEMISTRY O RDERABLES Performing Organization Address City/State/[facility] Co de Phone Number [facility] [address] [phone] from Last 3 Months or Most Recently Relevant to Health Maintenance Insurance Payer Benefit Plan / Group Subscriber ID Effective Dates Phone Address Type AETNA MEDICARE ADV AETNA MEDICARE ADV HMO/PPO/PFFS [id number] 08/10/2022-Prese nt [address] [place] [address] Medicare- Managed Care AETNA AETNA MEDICARE ADV HMO/PPO [id number] 08/10/2022-Prese nt [address] [place] [address] Medicare- Managed Care AETNA AETNA MEDICARE ADV HMO/PPO [id number] 08/10/2022-Prese nt [address] [place] [address] Medicare- Managed Care AETNA AETNA MEDICARE ADV HMO/PPO [id number] 08/10/2022-Prese nt [address] [place] [address] Medicare- Managed Care AETNA AETNA MEDICARE ADV HMO/PPO [id number] 08/10/2022-Prese nt [address] [place] [address] Medicare- Managed Care AETNA AETNA MEDICARE ADV HMO/PPO [id number] 08/10/2022-Prese nt [address] [place] [address] Medicare- Managed Care AETNA AETNA MEDICARE ADV HMO/PPO [id number] 08/10/2022-Prese nt [address] [place] [address] Medicare- Managed Care AETNA AETNA MEDICARE ADV HMO/PPO [id number] 08/10/2022-Prese nt [address] [place] [address] Medicare- Managed Care AETNA AETNA MEDICARE ADV HMO/PPO [id number] 08/10/2022-Prese nt [address] [place] [address] Medicare- Managed Care AETNA AETNA MEDICARE ADV HMO/PPO [id number] 08/10/2022-Prese nt [address] [place] [address] Medicare- Managed Care AETNA AETNA MEDICARE ADV HMO/PPO [id number] 08/10/2022-Prese nt [address] [place] [address] Medicare- Managed Care AETNA AETNA MEDICARE ADV HMO/PPO [id number] 08/10/2022-Prese nt [address] [place] [address] Medicare- Managed Care AETNA AETNA MEDICARE ADV HMO/PPO [id number] 08/10/2022-Prese nt [address] [place] [address] Medicare- Managed Care AETNA AETNA MEDICARE ADV HMO/PPO [id number] 08/10/2022-Prese nt [address] [place] [address] Medicare- Managed Care AETNA AETNA MEDICARE ADV HMO/PPO [id number] 08/10/2019-Prese nt [address] [place] [address] Medicare- Managed Care AETNA AETNA MEDICARE ADV HMO/PPO [id number] 08/10/2019-Prese nt [address] [place] [address] Medicare- Managed Care AETNA AETNA MEDICARE ADV HMO/PPO [id number] 08/10/2019-Prese nt [address] [place] [address] Medicare- Managed Care [place] ADVANTRA MEDICARE ADV [id number] 08/10/2015-Prese nt [address] [place] [address] Medicare- Managed Care AETNA AETNA MEDICARE ADV HMO/PPO [id number] Effective for all dates [address] [place] [address] Medicare- Managed Care Advance Directives * Full Code (Latest Code Status on File) Date Activated Date Inactivated Comments 05/25/2016 6:59 AM 05/26/2016 4:43 PM * Full Code Date Activated Date Inactivated Comments 05/22/2016 3:45 PM 05/23/2016 11:38 AM Care Teams Regional Production Manager Relationship Specialty Start Date End Date Unknown, Provider PCP - General 02/11/24 Vinicius Abraham MD Internal Medicine 08/21/17 [place] [address] [address] Anesthesiology-Pain Management 02/06/16
--- OUTSIDE RECORDS SUMMARY | 2024-09-01 05:03 | XMS_ITS | Referral Summary ---
Author Organization [facility] Address [facility] [place] [address] Care Team Providers Care Chain Machine Operator Name Role Phone Vinicius Abarham MD Unavailable [phone] Heriberto Enriquez MD Unavailable [phone] Unknown, Provider Primary Care Provider Unavaila ble Source Comments [facility],non-owned Affiliates and Associated Physician Practices is amultiple site organization consisting of ambulatory clinics and hospital sitesin [place], [place], [place] and [place]. This disclosure is being madepursuant to the Care Everywhere program and may not contain all information available regarding this patient. Last updated 18.[facility] Encounters Date Type Department Care Team Description 08/24/2024 Lab Requisition [facility] - DermPath Lab [address] [place] [address] Soni Eastman MD from Last 3 Months [...] tablet by mouth once daily Active B KYCRXHC-MKYRIB-RL PO Take 1 tablet by mouth once [...] tablet by mouth once daily 03/16/2024 Active Y-Kjavwhdletue-Wzput -B12-B6 (Metanx) 3-90.314-2-35 MG capsule 01/20/2024 Active [...] Height 182.9 cm (6') 09/09/2023 10:32 AM DIRECTOR COMMUNITY ORGANIZATION Body Mass Index 28.35 09/09/2023 10:32 AM DIRECTOR COMMUNITY ORGANIZATION Functional Status Functional Status Response Date of [...] st Contact Info) Description 10/07/2024 8:30 AM DIRECTOR COMMUNITY ORGANIZATION Office Visit [facility] - Ger[facility]s [address] [place] [address] Sandra Polanco MD [address] [place] [address] Procedures Procedure Name Priority Date/Time Associated Diagnosis Comments DERMATOPATHOLOGY Routine 08/23/2024 3:33 AM DIRECTOR COMMUNITY ORGANIZATION HEMOGLOBIN A1C - POINT OF CARE (AMB) [facility] Routine 04/01/2024 9:22 AM CDT Type 2 diabetes mellitus with stage 3 chronic kidney disease, without long-term current use of insulin, unspecified whether stage 3a or 3b CKD (HCC) COMPREHENSIVE METABOLIC PANEL STAT 10/12/2017 6:46 AM DIRECTOR COMMUNITY ORGANIZATION from Last 3 Months or Most Recently Relevant to Health Maintenance Results * DERMATOPATHOLOGY (08/23/2024 3:33 AM DIRECTOR COMMUNITY ORGANIZATION) Case Report Dermatopathology Report ? Case: [id number] ? Authorizing Provider: ??Soni Eastman MD ? Collected: ? 08/23/2024 03:33 AM ? Ordering Location: ? [facility] - ??Received: ?08/24/2024 01:04 PM ? DermPath Lab ? Pathologist: ? Ilene Chung MD ? Specimen: ?Skin, left mid scalp ? 5 2:29 PM [facility] D[facility]MAT[facility]ORAT[facility] Final Diagnosis Specimen A. 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 The specimen consists of a shave biopsy measuring 9x6x3 mm. Jar 0. 5 2:29 PM [facility] DERMATOPATHOLOGY LABORATORY Microscopic Description Specimen A. SKIN, [...] of marked compact hyperkeratosis. 5 2:29 PM [facility] DERMATOPATHOLOGY LABORATORY Disclaimer An external and internal positive and negative controls are appropriate for the histochemical, immunohistochemical and immunofluorescence stain(s) in this case (if any), except where stated explicitly. The performance characteristics of the stain(s) cited in this report were developed and its performance characteristic determined by the Dermatopathology Laboratory at [facility], directed by Dr. Luis Navas. These tests need not be, and therefore are not, approved by the [place] Food and Drug Administration. The tests are used for clinical purposes. Billing Codes Specimen Charges Stain Charges 45432 1 5 2:29 PM [facility] DERMATOPATHOLOGY LABORATORY Embedded Images 5 2:29 PM [facility] DERMATOPATH[facility] LABORATORY Pathology/Cytolo gy TISSUE SPECIMEN FROM SKIN / Unknown 08/23/2024 3:33 AM DIRECTOR COMMUNITY ORGANIZATION 08/24/2024 1:04 PM DIRECTOR COMMUNITY ORGANIZATION Soni Eastman MD LAB - PATHOLOGY/CYT OLOGY ORDERABLES DERMATOPATHOLOGY LABORATORY [facility] - Department of Dermatology [facility] [address] [place] [address], [address] [phone] * HEMOGLOBIN A1C - POINT OF CARE (AMB) [facility] (04/01/2024 9:22 AM CDT) Pathologist [facility] Hemoglobin A1c POCT 6.4 % [address] BLOOD SPECIMEN / Unknown 04/01/2024 9:22 AM CDT Sandra Polanco MD LAB - POINT OF CARE ORDERABLES [address] [place] [address], [facility] [phone] * (ABNORMAL) COMPREHENSIVE METABOLIC PANEL (10/12/2017 6:46 AM DIRECTOR COMMUNITY ORGANIZATION) BUN 28(H) 7 - 26 mg/dL [facility] Creatinine 1.2 0.6 - 1.2 [...] HOSPITAL Anion Gap 16 8 - 18 [facility] BUN/Creatinine Ratio 23 7 - 23 [facility] Osmolality Calculated 300 270 - 300 mOsm/kg [facility] Albumin/Globulin Ratio 1.1 1.1 - 2.3 [facility] eGFR 59(L) >60 mL/min/1.7 3 m2 [facility] Blood specimen (specimen) BLOOD SPECIMEN / Unknown 10/12/2017 6:46 AM DIRECTOR COMMUNITY ORGANIZATION 10/12/2017 6:48 AM DIRECTOR COMMUNITY ORGANIZATION Heladio Adhikari MD LAB - CHEMISTRY O RDERABLES Performing Organization Address City/State/[facility] Co de Phone Number [address] [phone] from Last 3 Months or Most Recently Relevant to Health Maintenance Administered Medications Insurance Payer Benefit Plan / Group Subscriber ID Effective Dates Phone Address Type AETNA MEDICARE ADV AETNA MEDICARE ADV HMO/PPO/PFFS [id number] 08/10/2022-[facility] [address] [place] [address] Medicare- Managed Care AETNA AETNA MEDICARE ADV HMO/PPO [id number] 08/10/2022-[facility] [address] [place] [address] Medicare- Managed Care AETNA AETNA MEDICARE ADV HMO/PPO [id number] 08/10/2022-Prese nt [address] [place] [address] Medicare- Managed Care AETNA AETNA MEDICARE ADV HMO/PPO [id number] 08/10/2022-Prese nt [address] [place] [address] Medicare- Managed Care AETNA AETNA MEDICARE ADV HMO/PPO [id number] 08/10/2022-Prese nt [address] [place] [address] Medicare- Managed Care AETNA AETNA MEDICARE ADV HMO/PPO [id number] 08/10/2022-Prese nt [address] [place] [address] Medicare- Managed Care AETNA AETNA MEDICARE ADV HMO/PPO [id number] 08/10/2022-Prese nt [address] [place] [address] Medicare- Managed Care AETNA AETNA MEDICARE ADV HMO/PPO [id number] 08/10/2022-Prese nt [address] [place] [address] Medicare- Managed Care AETNA AETNA MEDICARE ADV HMO/PPO [id number] 08/10/2022-Prese nt [address] [place] [address] Medicare- Managed Care AETNA AETNA MEDICARE ADV HMO/PPO [id number] 08/10/2022-Prese nt [address] [place] [address] Medicare- Managed Care AETNA AETNA MEDICARE ADV HMO/PPO [id number] 08/10/2022-Prese nt [address] [place] [address] Medicare- Managed Care AETNA AETNA MEDICARE ADV HMO/PPO [id number] 08/10/2022-Prese nt [address] [place] [address] Medicare- Managed Care AETNA AETNA MEDICARE ADV HMO/PPO [id number] 08/10/2022-Prese nt [address] [place] [address] Medicare- Managed Care AETNA AETNA MEDICARE ADV HMO/PPO [id number] 08/10/2022-Prese nt [address] [place] [address] Medicare- Managed Care AETNA AETNA MEDICARE ADV HMO/PPO [id number] 08/10/2019-Prese nt [address] [place] [address] Medicare- Managed Care AETNA AETNA MEDICARE ADV HMO/PPO [id number] 08/10/2019-Prese nt [address] [place] [address] Medicare- Managed Care AETNA AETNA MEDICARE ADV HMO/PPO [id number] 08/10/2019-Prese nt [address] [place] [address] Medicare- Managed Care [place] ADVANTRA MEDICARE ADV [id number] 08/10/2015-Prese nt [address] [place] [address] Medicare- Managed Care AETNA AETNA MEDICARE ADV HMO/PPO [id number] Effective for all dates [address] [place] [address] Medicare- Managed Care Advance Directives * Full Code (Latest Code Status on File) Date Activated Date Inactivated Comments 05/25/2016 6:59 AM 05/26/2016 4:43 PM * Full Code Date Activated Date Inactivated Comments 05/22/2016 3:45 PM 05/23/2016 11:38 AM Care Teams Chain Machine Operator Relationship Specialty Start Date End Date Unknown, Provider PCP - General 02/11/24 Vinicius Abraham MD Internal Medicine 08/21/17 [place] [address] [address] Anesthesiology-Pain Management 02/06/16
--- NOTE | 2024-09-18 13:01 | WPDSLEEPSTUD ---
Sleep Study Date of Study: 08/25/24 Ordering Provider: Brenden Pollock DO Interpreting Physician: Mariaa Marcelo DO Sleep Study Type: Polysomnogram Height: 1.83 m Weight: 94.347 kg Body Mass Index: 28.2 Neck Circumference (inches): 16 [place]: 4 Reason for Sleep Study Multiple co-morbidities for sleep apnea. Sleep History The patient is an 84-year-old male that had a sleep study ordered by his indexer for evaluation of sleep apnea. The patient denies awakening from sleep short of breath. He rarely awakens at night with heartburn, belching or cough. He rarely snores and is never loud enough that others complain. He denies having trouble sleeping when he has a cold. He denies waking up gasping for air throughout the night. He denies having breathing problems at night observed by himself or others. He denies sweating excessively at night. He denies having heart palpitations or irregular heartbeats during the night. He occasionally falls asleep during the day but never while driving. He denies sleep paralysis, cataplexy and hypnagogic/ hypnopompic hallucinations. He denies having trouble at school or work due to sleepiness. He rarely feels afraid of going to sleep. He denies having nightmares. He denies remembering his dreams. He occasionally has thoughts racing through his mind. He denies feeling sad or depressed. He rarely has anxiety. He constantly has muscular tension. He constantly notices parts of his body jerk. He frequently kicks during the night. He frequently has crawling and aching feelings in his legs and constantly has leg pain during the night. He denies grinding his teeth during sleep and denies awakening with morning jaw pain. He is occasionally bothered by pain during the day but rarely awakened by pain during the night. He occasionally wakes up feeling stiff in the morning. He occasionally wakes up with sore or achy muscles. He occasionally wakes up with pain in the neck, spine and other joints. He goes to bed at 10:30 p.m. on both weekdays and weekends. It takes him 5 minutes to fall asleep. He wakes up 4 times throughout the night to urinate and is able to fall back asleep immediately. He wakes up at 8:00 a.m. on both weekdays and weekends. He typically gets 8 hours of sleep per night. He will stay in bed for a few minutes after waking up in the morning. He currently lives with his . He denies consuming any caffeinated beverages within 2 hours of bedtime. He denies engaging in physical exercise before bedtime. He will read watch television before falling asleep. He will take naps in the afternoon or the evening and they are refreshing. He consumes 2 caffeinated beverages per day. He denies tobacco, alcohol and recreational drug use. [facility] Past Medical History Medical History ASHD (arteriosclerotic heart disease) Age-related nuclear cataract of left eye Age-related nuclear cataract of right eye Benign essential hypertension Benign prostatic hyperplasia Body mass index [BMI] 29.0-29.9, adult (06/01/19) Calcification of both carotid arteries Cerebrovascular accident (CVA) Cystoid macular degeneration of both eyes DM w/o complication type II Gastroesophageal reflux disease without esophagitis Lesion of mandible Multinodular goiter On half-way drug therapy Other and unspecified hyperlipidemia Pain of left great toe Pneumonia due to infectious organism Sciatica of right side Thyroid nodule URI, acute Diabetes Hyperlipidemia Atrial fibrillation Hamstring tear Chest pain Diabetes 1.5, managed as type 2 Dizziness Dyslipidemia associated with type 2 diabetes mellitus Chronic fatigue, unspecified SOB (shortness of breath) Surgical History Surgical History S/P discectomy History of ear, nose, and throat (ENT) surgery Previous back surgery Family History Family History Father Malignant neoplasm of prostate Mother Old age Other Diabetes mellitus Social History Social History Smoking status: Never smoker Second hand tobacco smoke exposure: Yes (when he was a kid ) Alcohol intake: current Drinks per week: 3 Substance use: never Substance use type: does not use Lack of Transportation: No Lack of Food: Never True Current Housing: I Have Housing Concerned About Future Housing: No Difficulty Paying Gas/Electric Bills: No Difficulty Paying for Meds: No Currently Unemployed: No Education: Bachelor's Degree Difficulty w/ Childcare or Family Care: No Occupation/Education: retired Gender identity (if verbalized by the patient): Male Sexual Orientation (if Verbalized by the Patient): Straight or Heterosexual Spiritual care concerns: No Agree to blood products: Yes Medications Home Medications ?Medication ?Instructions ?Recorded ?Confirmed ?Type tamsulosin 0.4 mg capsule 0.4 mg PO DAILY 07/31/22 08/16/24 History amiodarone 100 mg tablet 100 mg PO HS 06/29/23 08/16/24 History blood sugar diagnostic (OneTouch #100 ea 07/08/23 08/16/24 Rx Verio test strips) metformin 500 mg tablet See Rx Instructions .Route 05/02/24 08/16/24 Rx .COMPLEX #90 ea apixaban 2.5 mg tablet (Eliquis) See Rx Instructions .Route 05/09/24 08/16/24 Rx .COMPLEX #60 tabs amlodipine 2.5 mg tablet 2.5 mg PO DAILY #90 tabs 06/14/24 08/16/24 Rx lisinopril 10 mg tablet See Rx Instructions .Route 07/15/24 08/16/24 Rx .COMPLEX #90 tabs sitagliptin phosphate 50 mg tablet See Rx Instructions .Route 07/20/24 08/16/24 Rx (Januvia) .COMPLEX #150 tabs omeprazole 20 mg capsule,delayed See Rx Instructions .Route 08/11/24 08/16/24 Rx release .COMPLEX #180 caps levomefolate Ca 3 mg-B6 35 1 cap PO BID #90 caps 08/19/24 Rx mg-meB12 2 mg-algal oil 90.314 mg capsule (Metanx (algal oil)) Sleep Procedure A full night polysomnogram using the Remote Assistant multi-channel system recorded the standard physiologic parameters including EEG, EOG, submentalis EMG, anterior tibialis EMG, EKG, body position, nasal and oral airflow using nasal pressure sensor and thermistor.? Respiratory parameters of chest and abdominal movements were recorded with Respiratory Inductance Plethysmography belts. Oxygen saturation was recorded by pulse oximetry. Video monitoring was also performed. Sleep stages, periodic limb movements, and EEG arousals were scored in 30 second epochs according to the criteria of the AASM Scoring Manual. The Apnea-Hypopnea Index was calculated using CMS guidelines for definition of hypopnea with 4% O2 desaturations while scoring respiratory events. Sleep Architecture The total recording time was 467.6 minutes.? The total sleep time was 159.5 minutes. Sleep latency was 11.0 minutes. REM latency was 318.0 minutes. Sleep efficiency was 34.1%. The patient had 24 awakenings for an awakening index of 9.0. Wake after sleep onset time was 296.5 minutes. The patient spent 30.0 minutes, 18.8% of total sleep time in Stage N1. The patient spent 112.5 minutes, 70.5% in Stage N2. The patient spent 0.0 minutes, 0.0% in Stage N3. The patient spent 17.0 minutes, 10.7% in Stage REM sleep. Respiratory Analysis The patient had 27 hypopneas for an overall Apnea Hypopnea Index of 9.8. The REM Apnea Hypopnea Index was 38.8. The NREM Apnea Hypopnea Index was 7.2. The patient had a Central Apnea Hypopnea Index of 0. There was no evidence of Eugene-Daley Respirations. Arousals There were 72 total arousals for an arousal index of 27.1. There were 8 spontaneous arousals for an index of 3.0. There were 8 arousals due to respiratory events for an index of 3.0. There were 52 arousals due to periodic limb movements for an index of 19.6.? There were 4 arousals due to isolated limb movements for an index of 1.5. Periodic Limb Movements The patient had 10 isolated limb movements with an index of 3.8. The patient had 194 periodic limb movements with an index of 73.0, which is elevated (normal < 15). Patient had a total of 204 limb movements with a total limb movement index of 76.7. Oximetry Data The patient had an average oxygen saturation of 94.0% in sleep with a minimum oxygen saturation of 75.0% and a maximum oxygen saturation of 98.0%. The patient had 26 oxygen desaturations that were 4% or greater resulting in an Oxygen Desaturation Index of 9.8.? The patient spent 4.5 minutes, 1.1% of total sleep time with an oxygen saturation below 88%. Snoring Profile Mild snoring was present intermittently throughout the study. Cardiac Profile The EKG showed normal sinus rhythm with occasional PVCs.?The patient had an average pulse rate of 56.2 bpm with a minimum pulse of rate of 48.0 bpm and a maximum pulse rate of 75.0 bpm.? EEG Profile No signs of seizure activity seen. Assessment and Plan Assessment and Plan (1) ERROL (obstructive sleep apnea): Code(s): G47.33 - Obstructive sleep apnea (adult) (pediatric) Status: Acute Assessment and Plan: The patient had an overall AHI of 9.8 with desaturation down to 75%. This is consistent with mild sleep apnea. Due to the patient's atrial flutter, he qualifies for treatment. I recommend that the patient have a CPAP Titration study with the use of a hypnotic to ensure we obtain enough sleep data and find an optimal pressure setting. (2) PLMD (periodic limb movement disorder): Code(s): G47.61 - Periodic limb movement disorder Status: Acute Assessment and Plan: The patient had a significant number of limb movements during the study with the majority being periodic in nature. Approximately 25% of the periodic limb movements caused arousals in the patient's sleep. The patient's sleep history is highly suggestive of Restless Leg Syndrome. I recommend that the patient have a serum ferritin drawn for evaluation of iron deficiency anemia. If the patient has a serum ferritin less than 75 ng/mL, I recommend starting a daily iron supplement and a Vitamin C supplement for better absorption. If the serum ferritin is greater than 75 ng/mL, I recommend starting a dopamine agonist and titrating the dose until symptoms resolve. There are nonpharmacological methods to treat limb movements including daily exercise, stretching calf muscles before bed, avoiding excessive amounts of caffeine and alcohol, vitamin B supplementation, magnesium lotion massaged into legs before bed, and use of a weighted blanket. Data The data obtained during this sleep study is adequate for interpretation. Certification This sleep study has been reviewed by a board certified sleep medicine physician.
[2024-09-19 09:10] VITALS: BMI 28.2
== END 2024-08-26 07:16 | disposition home or self-care (01) ==
LOC: ANHCSM 08-26 07:15
PROVIDERS: PCP Nurse Practitioner Family; Visit Provider Internal Medicine Cardiovascular Disease
DX: G47.33 Obstructive sleep apnea (adult) (pediatric) (principal); G47.61 Periodic limb movement disorder; G47.10 Hypersomnia, unspecified
CPT/HCPCS: 95810

== ENCOUNTER 2024-09-17 13:45 | Emergency (ER) | payer MEDICARE, SELFPAY ==
[2024-09-17 13:57] VITALS: BP 151/65; PULSE 52; RESP 16; TEMP 36.2; O2SAT 97
--- NOTE | 2024-09-17 14:39 | ED.EAR ---
HPI - Ear Problem General Chief complaint: Ear Stated complaint: wax in ears, blocked Time Seen by Provider: 09/17/24 14:39 Source: patient, RN notes reviewed and old records reviewed Mode of arrival: ambulatory Limitations: no limitations History of Present Illness HPI Narrative: Patient presents with complaints of decreased hearing. He denies any injury or pain. He believes that he has cerumen impactions. He is not in any distress Related Data Home Medications ?Medication ?Instructions ?Recorded ?Confirmed ?Last Taken ?Type tamsulosin 0.4 mg capsule 0.4 mg PO DAILY 07/31/22 08/16/24 06/28/23 History amiodarone 100 mg tablet 100 mg PO HS 06/29/23 08/16/24 06/28/23 History Allergies Allergy/AdvReac Type Severity Reaction Status Date / Time Penicillins Allergy Intermediate Rash Verified 09/17/24 14:22 Review of Systems Review of Systems: All systems reviewed & are unremarkable except as noted in HPI and below Constitutional: Constitutional: Reports no additional constitutional complaints ENT: Reports system reviewed and no additional complaints, except as documented and Reports hearing loss Cardiovascular: Cardiovascular: Reports no additional cardiovascular complaints Respiratory: Respiratory: Reports no additional respiratory complaints Gastrointestinal: Gastrointestinal: Reports no additional gastrointestinal complaints [facility] Past Medical History Medical History ASHD (arteriosclerotic heart disease) Age-related nuclear cataract of left eye Age-related nuclear cataract of right eye Benign essential hypertension Benign prostatic hyperplasia Body mass index [BMI] 29.0-29.9, adult (06/01/19) Calcification of both carotid arteries Cerebrovascular accident (CVA) Cystoid macular degeneration of both eyes DM w/o complication type II Gastroesophageal reflux disease without esophagitis Lesion of mandible Multinodular goiter On pulmonary nurse practitioner drug therapy Other and unspecified hyperlipidemia Pain of left great toe Pneumonia due to infectious organism Sciatica of right side Thyroid nodule URI, acute Diabetes Hyperlipidemia Atrial fibrillation Hamstring tear Chest pain Diabetes 1.5, managed as type 2 Dizziness Dyslipidemia associated with type 2 diabetes mellitus Chronic fatigue, unspecified SOB (shortness of breath) Surgical History Surgical History S/P discectomy History of ear, nose, and throat (ENT) surgery Previous back surgery Family History Family History Father Malignant neoplasm of prostate Mother Old age Other Diabetes mellitus Social History Social History (Reviewed 08/16/24 @ 11:35 by Naya Temple [facility]) Smoking status: Never smoker Second hand tobacco smoke exposure: Yes (when he was a kid ) Alcohol intake: current Drinks per week: 3 Substance use: never Substance use type: does not use Lack of Transportation: No Lack of Food: Never True Current Housing: I Have Housing Concerned About Future Housing: No Difficulty Paying Gas/Electric Bills: No Difficulty Paying for Meds: No Currently Unemployed: No Education: Bachelor's Degree Difficulty w/ Childcare or Family Care: No Occupation/Education: retired Gender identity (if verbalized by the patient): Male Sexual Orientation (if Verbalized by the Patient): Straight or Heterosexual Spiritual care concerns: No Agree to blood products: Yes Comments At the time of my signature, I reviewed and agree with the nursing past medical, surgical, social, and family history. There is no relevant family history pertinent to the patient complaint. Exam Const: General: cooperative, no acute distress, alert and awake Orientation/consciousness: oriented to person, oriented to place and oriented to time HENMT: Head: normal to inspection Ears: Abnormal EAC present cerumen impaction on the left Resp: Effort & Inspection: normal respiratory effort and able to speak in complete sentences Auscultation: clear to auscultation bilaterally, no crackles, no rales, no rhonchi and no wheezes Cardio: Palpation: normal PMI Rate: regular rate Rhythm: regular rhythm Heart sounds: S1 normal heart sound present and S2 normal heart sound present Neuro: General: oriented to person, oriented to place and oriented to time Cranial nerves: Yes CN's II-XII intact bilaterally Psych: Appearance: grossly normal Thought process: Normal thought process present Insight: Good insight present (Psych) Judgement: Good judgement present (Psych) Course Course Level of Care: Express Care Visit Vital Signs Vital signs: Vital Signs Temperature 97.2 F L 09/17/24 13:57 Pulse Rate 52 L 09/17/24 13:57 Respiratory Rate 16 09/17/24 13:57 Blood Pressure 151/65 H 09/17/24 13:57 Pulse Oximetry 97 09/17/24 13:57 Oxygen Delivery Room Air 09/17/24 13:57 Temperature 97.2 F L 09/17/24 13:57 Pulse Rate 52 L 09/17/24 13:57 Respiratory Rate 16 09/17/24 13:57 Blood Pressure 151/65 H 09/17/24 13:57 Pulse Oximetry 97 09/17/24 13:57 Oxygen Delivery Room Air 09/17/24 13:57 Reviewed Procedures Ear Wax Removal Left Ear: Ear Wax Removal Date: 09/17/24 Ear Wax Removal Time: 14:40 Cerumenolytic Used: other Results: Re-examined: cerumen removed completely TM Examination: TM(s) intact, normal appearance Ear Canal Exam: atraumatic Patient Tolerated Procedure: well Complications: no problems Technique: ear canal irrigated and ear canal curetted Medical Decision Making MDM Narrative Medical decision making narrative: Patient with cerumen impaction to left ear, right ear normal. Cerumen disimpacted, no complications. Patient reports he is hearing much better. Discharge instructions reviewed with patient, as well as provided in writing per nursing staff. The instructions also include specific and strict return/GO TO THE ER as well as f/u information. All questions have been answered, and the patient deny any further questions with discharge and discharge plan. Some parts of this dictation were generated by voice recognition software and may contain typographical and/or grammatical inaccuracies. Vital Signs Vital Signs: Vital Signs Temperature 97.2 F L 09/17/24 13:57 Pulse Rate 52 L 09/17/24 13:57 Respiratory Rate 16 09/17/24 13:57 Blood Pressure 151/65 H 09/17/24 13:57 Pulse Oximetry 97 09/17/24 13:57 Oxygen Delivery Room Air 09/17/24 13:57 Temperature 97.2 F L 09/17/24 13:57 Pulse Rate 52 L 09/17/24 13:57 Respiratory Rate 16 09/17/24 13:57 Blood Pressure 151/65 H 09/17/24 13:57 Pulse Oximetry 97 09/17/24 13:57 Oxygen Delivery Room Air 09/17/24 13:57 reviewed Lab Data Lab results reviewed: Yes I reviewed the patient's lab results. Lab results narrative: reviewed Discharge Plan Discharge Clinical Impression: Cerumen impaction Qualifiers: Laterality: left Qualified Code(s): H61.22 - Impacted cerumen, left ear Patient Disposition: Home, Self-Care Condition: Stable Instructions: Antibiotic Form Patient Language: Persian Prescriptions: No Action tamsulosin 0.4 mg capsule 0.4 mg PO DAILY (DME) OneTouch Verio test strips Strip 1 .ROUTE .COMPLEX Qty: 100 2RF Rx Instructions: USE 1 STRIP DAILY FOR GLUCOSE CHECK amiodarone 100 mg tablet 100 mg PO HS metformin 500 mg tablet See Rx Instructions .ROUTE .COMPLEX Qty: 90 1RF Dose Instruction: TAKE ONE TABLET (500 MG) BY MOUTH DAILY; TAKE 1 TABLET BY MOUTH DAILY Rx Instructions: TAKE ONE TABLET (500 MG) BY MOUTH DAILY; TAKE 1 TABLET BY MOUTH DAILY Eliquis 2.5 mg tablet See Rx Instructions .ROUTE .COMPLEX Qty: 60 5RF Dose Instruction: TAKE 1 TABLET BY MOUTH TWICE DAILY Rx Instructions: TAKE 1 TABLET BY MOUTH TWICE DAILY amlodipine 2.5 mg tablet 2.5 mg PO DAILY Qty: 90 1RF lisinopril 10 mg tablet See Rx Instructions .ROUTE .COMPLEX Qty: 90 0RF Dose Instruction: TAKE 1 TABLET BY MOUTH DAILY Rx Instructions: TAKE 1 TABLET BY MOUTH DAILY Januvia 50 mg tablet See Rx Instructions .ROUTE .COMPLEX Qty: 150 0RF Dose Instruction: TAKE ONE TABLET BY MOUTH DAILY Rx Instructions: TAKE ONE TABLET BY MOUTH DAILY omeprazole 20 mg capsule,delayed release(DR/EC) See Rx Instructions .ROUTE .COMPLEX Qty: 180 1RF Dose Instruction: TAKE 1 CAPSULE BY MOUTH TWICE A DAY BEFORE MEALS DIRECTED Rx Instructions: TAKE 1 CAPSULE BY MOUTH TWICE A DAY BEFORE MEALS DIRECTED [id number] [Metanx (algal oil)] 3 mg-35 mg-2 mg -90.314 mg capsule 1 cap PO BID Qty: 90 1RF Follow-up/Referrals: Leda Burch APRN [Primary Care Provider] - 2 Weeks Time of Disposition: 14:46
== END 2024-09-17 14:50 | disposition home or self-care (01) ==
PROVIDERS: Emergency Provider Nurse Practitioner Family; PCP Nurse Practitioner Family
DX: H61.22 Impacted cerumen, left ear (principal); I10 Essential (primary) hypertension; N40.0 Benign prostatic hyperplasia without lower urinary tract symptoms; K21.9 Gastro-esophageal reflux disease without esophagitis; I48.91 Unspecified atrial fibrillation; E78.5 Hyperlipidemia, unspecified; E11.9 Type 2 diabetes mellitus without complications; Z79.84 Long term (current) use of oral hypoglycemic drugs; I65.23 Occlusion and stenosis of bilateral carotid arteries; I25.10 Atherosclerotic heart disease of native coronary artery without angina pectoris; Z86.73 Personal history of transient ischemic attack (TIA), and cerebral infarction without residual deficits; Z79.01 Long term (current) use of anticoagulants
CPT/HCPCS: 69210; 99212; G0463

== ENCOUNTER 2024-11-14 08:10 | Emergency (ER) | payer MEDICARE, SELFPAY ==
--- NOTE | ~2024-11-14 | XR_ITS ---
XR chest 2V Ordering provider: Nam Terry MD History: 84 years Male with . weakness . Comparison: July 07, 2023 FINDINGS: MEDIASTINUM: The cardiac silhouette is slightly enlarged. LUNGS: No infiltrates, effusions or pneumothorax. Small nodule in the right lower lobe unchanged most likely granuloma. OTHER: No free air under the diaphragm. Degenerative changes of the spine. IMPRESSION: No acute cardiopulmonary pathology. Reviewed, dictated and finalized at location A.
[2024-11-14 08:01] VITALS: BP 178/67; PULSE 51; RESP 19; TEMP 36.4; O2SAT 97
--- NOTE | 2024-11-14 08:47 | ECG_ITS ---
Test Date: 2024-11-14 08:56:52 Measurements Intervals Jack Rate: 46 P: 79 OH: 176 QRS: -18 QRSD: 103 T: 19 QT: 476 QTc: 419 Interpretive Statements SINUS BRADYCARDIA CANNOT R/O SEPTAL INFARCT, AGE INDETERMINATE BASELINE ARTIFACT- I, II, III, AVR, AVL, AVF, V1-V6 ABNORMAL ECG No previous ECG available for comparison Electronically Signed On 11-14-2024 09:11:37 CDT by Brenden Pollock D.O.
[2024-11-14 09:12] LABS: Basophils Absolute Auto 0.1 K/mm3 (0.0-0.1); Basophils Percent Auto 0.7 % (0.2-1.2); Eosinophils Absolute Auto 0.1 K/mm3 (0-0.3); Eosinophils Percent Auto 1.3 % (0-4.4); Hematocrit 45.1 % (42.0-52.0); Hemoglobin 14.3 g/dL (14.0-18.0); Immature Granulocyte Absolute 0.04 K/mm3 (0.00-0.031); Immature Granulocyte Percent A 0.5 % (0-0.5); Lymphocytes Absolute Auto 1.56 K/mm3 (0.9-3.2); Mean Corpuscular HGB Conc 31.7 g/dl (32-36); Mean Corpuscular Volume 94.5 fl (80-100); Mean Platelet Volume 11.1 fl (7.4-10.4); Monocytes Absolute Auto 0.8 K/mm3 (0.1-0.6); Monocytes Percent Auto 8.8 % (2.6-8.5); Neutrophils Absolute Auto 6.1 K/mm3 (1.3-6.7); Neutrophils Percent Auto 70.7 % (45.5-73.1); Platelet Count Result 185 k/mm3 (150-375); Red Blood Count 4.77 M/mm3 (4.6-6.20); Red Cell Distribution Width 13.2 % (11.5-14.5); White Blood Count 8.7 K/mm3 (4.5-10.0)
[2024-11-14 09:14] LABS: Add Urine Microscopic? NO; Appearance Urine Clear (Clear); Bilirubin Urine Negative (Negative); Blood Urine Negative (Negative); Color Urine Yellow (Yellow); Glucose Urine UA Negative (Negative); Ketones Urine Negative (Negative); Leukocyte Esterase Ur Negative LEU/UL (Negative); Nitrate Urine Negative (Negative); Protein Urine Negative (Negative); Specific Grav Ur 1.018 (1.001-1.035); Urobilinogen Urine 0.2 mg/dL (<2.0); pH Urine 5.5 (5.0-9.0)
[2024-11-14 09:22] LABS: Alanine Aminotransferase 38 U/L (6-50); Albumin Level 4.4 g/dL (3.5-5.1); Alkaline Phosphatase 53 U/L (38-126); Anion Gap 9 mmol/L (4-12); Aspartate Amino Transferase 38 U/L (17-59); Bilirubin,Total 1.1 mg/dL (0.2-1.3); Blood Urea Nitrogen 33 mg/dL (9-20); Carbon Dioxide 27 mmol/L (22-30); Chloride 103 mmol/L (98-107); Estimated CRCL calculation 43 ml/min; Estimated Glomerular Filt Rate 52; Glucose 117 mg/dL (65-110); Potassium 4.5 mmol/L (3.4-5.0); Sodium 139 mmol/L (137-145)
--- OUTSIDE RECORDS SUMMARY | 2024-11-14 10:29 | XMS_ITS | Clinical Summary ---
Author Organization [facility] Address [address] [place] [address] Care Team Providers Care Operational Test Mechanic Name Role Phone Vinicius Abraham MD Unavailable [phone] Heriberto Enriquez MD Unavailable [phone] Unknown, Provider Primary Care Provider Unavaila ble Source Comments [facility],non-owned Affiliates and Associated Physician Practices is amultiple site organization consisting of ambulatory clinics and hospital sitesin [place], [place], [place] and [place]. This disclosure is being madepursuant to the Care Everywhere program and may not contain all information available regarding this patient. Last updated 18.[facility] Allergies Active Allergy Reactions Criticality Noted [...] tablet by mouth once daily Active B FBLGGMT-TCGHQZ-JV PO Take 1 tablet by mouth once [...] tablet by mouth once daily 03/16/2024 Active U-Lbsrbnfimjoa-Aeddw -B12-B6 (Metanx) 3-90.314-2-35 MG capsule 01/20/2024 Active [...] Department Care Team Description 08/24/2024 Lab Requisition [facility] - DermPath Lab [address] [place] [address] Soni Eastman MD from Last 3 Months [...] 59 04/01/2024 9:09 AM CDT Temperature 36.8 C (98.2 F) 09/09/2023 10:32 AM BELTING AND WEBBING INSPECTOR Respiratory Rate 18 02/06/2023 9:43 AM CDT Oxygen Saturation 97% 04/01/2024 9:09 AM CDT Inhaled Oxygen Concentration - - Weight 94.8 kg (209 lb) 04/01/2024 9:09 AM CDT Height 182.9 cm (6') 09/09/2023 10:32 AM BELTING AND WEBBING INSPECTOR Body Mass Index 28.35 09/09/2023 10:32 AM BELTING AND WEBBING INSPECTOR Plan of Treatment Upcoming Encounters Date Type Department Care Team (Late st Contact Info) Description 02/24/2025 10:30 AM CDT Office Visit [facility] [address] [place] [id number] Sandra Polanco MD [address] [place] [address] Health Maintenance Due Date Last Done Comments ZOSTER VACCINE (1 of 2) 02/27/1992 Respiratory Syncytial Virus (RSV) Vaccine Pt: or over 60 yrs (1 - 1-dose 75+ series) 2017 DIABETES-SERUM CREATININE 10/12/20182017, 05/26/2016, 05/25/2016, Additional history exists DIABETES RETINOPATHY SCREENING 04/18/2022 DIABETES-FOOT EXAM WITH MONOFILAMENT 09/22/2023 09/22/2022 PNEUMOCOCCAL VACCINE 50+ (2 of 2 - PCV) 12/26/2023 12/25/2022 COVID-19 VACCINE ( - season) 2024 10/23/2020, 09/20/2020 DEPRESSION SCREENING 08/10/2024 09/22/2022, 04/18/20 DIABETES - URINE PROTEIN SCREENING 08/10/2024 MEDICARE AWV CALENDAR YEAR 2024 DIABETES-HGB A1C 10/02/2024 04/01/2024, , 09/22/2022, Additional history exists INFLUENZA VACCINE (Season Ended) 2025 07/31/2023, 06/02/2018, 05/23/2016 DTAP/TDAP/TD VACCINES (2 - Td or Tdap) 09/09/2033 09/09/2023 HEPATITIS B VACCINE Aged Out No longe r eligible based on patient's age to complete this topic HIB VACCINE Aged Out No longer eligi ble based on patient's age to complete this topic HPV VACCINE Aged Out No longer eligi ble based on patient's age to complete this topic MENINGOCOCCAL (Group B) VACCINE SHARED DECISION-MAKING Aged Out No longer eligible based on patient's age to complete this topic MENINGOCOCCAL GROUPS A/C/Y/W VACCINE Aged Out No longer eligible based on patient's age to complete this topic Procedures Procedure Name Priority Date/Time Associated Diagnosis Comments DERMATOPATHOLOGY Routine 08/23/2024 3:33 AM BELTING AND WEBBING INSPECTOR HEMOGLOBIN A1C - POINT OF CARE (AMB) [facility] Routine 04/01/2024 9:22 AM CDT Type 2 diabetes mellitus with stage 3 chronic kidney disease, without long-term current use of insulin, unspecified whether stage 3a or 3b CKD COMPREHENSIVE METABOLIC PANEL STAT 10/12/2017 6:46 AM BELTING AND WEBBING INSPECTOR from Last 3 Months or Most Recently Relevant to Health Maintenance Results * DERMATOPATHOLOGY (08/23/2024 3:33 AM BELTING AND WEBBING INSPECTOR) Case Report Dermatopathology Report Case: [id number] Authorizing Provider: Soni Eastman MD Collected: 08/23/2024 03:33 AM Ordering Location: [facility] - Received: 08/24/2024 01:04 PM DermPath Lab Pathologist: Ilene Chung MD Specimen: Skin, left mid scalp 2:29 PM [facility] Final Diagnosis Specimen A. 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 The specimen consists of a shave biopsy measuring 9x6x3 mm. Jar 0. 2:29 PM [facility] Microscopic Description Specimen A. [...] column of marked compact hyperkeratosis. 2:29 PM [facility] Disclaimer An external and internal positive and negative controls are appropriate for the histochemical, immunohistochemical and immunofluorescence stain(s) in this case (if any), except where stated explicitly. The performance characteristics of the stain(s) cited in this report were developed and its performance characteristic determined by the Dermatopathology Laboratory at [facility], directed by Dr. Luis Navas. These tests need not be, and therefore are not, approved by the [place] Food and Drug Administration. The tests are used for clinical purposes. Billing Codes Specimen Charges Stain Charges 07656 1 5 2:29 PM [facility] Embedded Images 5 2:29 PM BELTING AND WEBBING INSPECTOR DERMATOPATHOLOGY LABORATORY Pathology/Cytolo gy TISSUE SPECIMEN FROM SKIN / Unknown 08/23/2024 3:33 AM BELTING AND WEBBING INSPECTOR 08/24/2024 1:04 PM BELTING AND WEBBING INSPECTOR Soni Eastman MD LAB - PATHOLOGY/CYT OLOGY ORDERABLES DERMATOPATHOLOGY LABORATORY [facility] - Department of Dermatology [address], [address] [phone] * HEMOGLOBIN A1C - POINT OF CARE (AMB) [facility] (04/01/2024 9:22 AM CDT) Pathologist [facility] Hemoglobin A1c POCT 6.4 % [address] BLOOD SPECIMEN / Unknown 04/01/2024 9:22 AM CDT Sandra Polanco MD LAB - POINT OF CARE ORDERABLES [address], SECOND LEVEL [address] [phone] * (ABNORMAL) COMPREHENSIVE METABOLIC PANEL (10/12/2017 6:46 AM BELTING AND WEBBING INSPECTOR) Pathologist [facility] BUN 28(H) 7 - 26 mg/dL [facility] Creatinine 1.2 0.6 - 1.2 mg/dL [facility] Sodium 141 136 - 145 mmol/L [facility] Potassium 4.4 3.5 - 4.5 mmol/L [facility] Chloride 103 98 - 107 mmol/L [facility] CO2 26 22 - 29 mmol/L [facility] Glucose 146(H) 70 - 115 mg/dL [facility] Calcium 9.1 8.4 - 10.2 mg/dL [facility] Protein Total 7.3 6.0 - 8.3 g/dL [facility] Albumin 3.8 3.4 - 5.0 g/dL [facility] Bilirubin Total 0.8 0.2 - 1.2 mg/dL [facility] Alkaline Phosphatase 59 40 - 150 Units/L [facility] ALT 35 0 - 55 Units/L [facility] AST 29 5 - 34 Units/L [facility] Anion Gap 16 8 - 18 [facility] BUN/Creatinine Ratio 23 7 - 23 [facility] Osmolality Calculated 300 270 - 300 mOsm/kg [facility] Albumin/Globulin Ratio 1.1 1.1 - 2.3 [facility] eGFR 59(L) >60 mL/min/1.7 3 m2 [facility] Blood specimen (specimen) BLOOD SPECIMEN / Unknown 10/12/2017 6:46 AM BELTING AND WEBBING INSPECTOR 10/12/2017 6:48 AM BELTING AND WEBBING INSPECTOR Heladio Adhikari MD LAB - CHEMISTRY O RDERABLES [address] [phone] from Last 3 Months or Most Recently Relevant to Health Maintenance Insurance Payer Benefit Plan / Group Subscriber ID Effective Dates Phone Address Type AETNA MEDICARE ADV AETNA MEDICARE ADV HMO/PPO/PFFS [id number] 08/10/2022-Prese nt [phone] [address] [place] [address] Medicare- Managed Care AETNA AETNA MEDICARE ADV HMO/PPO [id number] 08/10/2022-Prese nt [address] [place] [address] Medicare- Managed Care AETNA AETNA MEDICARE ADV HMO/PPO [id number] 08/10/2022-Prese nt [address] [place] [address] Medicare- Managed Care AETNA AETNA MEDICARE ADV HMO/PPO [id number] 08/10/2022-Prese nt [address] [place] [address] Medicare- Managed Care AETNA AETNA MEDICARE ADV HMO/PPO [id number] 08/10/2022-Prese nt [address] [place] [address] Medicare- Managed Care AETNA AETNA MEDICARE ADV HMO/PPO [id number] 08/10/2022-Prese nt [address] [place] [address] Medicare- Managed Care AETNA AETNA MEDICARE ADV HMO/PPO [id number] 08/10/2022-Prese nt [address] [place] [address] Medicare- Managed Care AETNA AETNA MEDICARE ADV HMO/PPO [id number] 08/10/2022-Prese nt [address] [place] [address] Medicare- Managed Care AETNA AETNA MEDICARE ADV HMO/PPO [id number] 08/10/2022-Prese nt [address] [place] [address] Medicare- Managed Care AETNA AETNA MEDICARE ADV HMO/PPO [id number] 08/10/2022-Prese nt [address] [place] [address] Medicare- Managed Care AETNA AETNA MEDICARE ADV HMO/PPO [id number] 08/10/2022-Prese nt [address] [place] [address] Medicare- Managed Care AETNA AETNA MEDICARE ADV HMO/PPO [id number] 08/10/2022-Prese nt [address] [place] [address] Medicare- Managed Care AETNA AETNA MEDICARE ADV HMO/PPO [id number] 08/10/2022-Prese nt [address] [place] [address] Medicare- Managed Care AETNA AETNA MEDICARE ADV HMO/PPO [id number] 08/10/2022-Prese nt [address] [place] [address] Medicare- Managed Care AETNA AETNA MEDICARE ADV HMO/PPO [id number] 08/10/2019-Prese nt [address] [place] [address] Medicare- Managed Care AETNA AETNA MEDICARE ADV HMO/PPO [id number] 08/10/2019-Prese nt [address] [place] [address] Medicare- Managed Care AETNA AETNA MEDICARE ADV HMO/PPO [id number] 08/10/2019-Prese nt [address] [place] [address] Medicare- Managed Care AETNA AETNA MEDICARE ADV HMO/PPO [id number] Effective for all dates [address] [place] [address] Medicare- Managed Care Advance Directives * Full Code (Latest Code Status on File) Date Activated Date Inactivated Comments 05/25/2016 6:59 AM 05/26/2016 4:43 PM * Full Code Date Activated Date Inactivated Comments 05/22/2016 3:45 PM 05/23/2016 11:38 AM Care Teams Operational Test Mechanic Relationship Specialty Start Date End Date Unknown, Provider PCP - General 02/11/24 Vinicius Abraham MD Internal Medicine 08/21/17 [place] [address] [address] Anesthesiology-Pain Management 02/06/16
--- OUTSIDE RECORDS SUMMARY | 2024-11-14 10:29 | XMS_ITS | Continuity of Care Document ---
Author Organization [facility] Address [address] [place] [address] Phone Care Team Providers Care Food Demonstrator Name Role Phone Kennedy Flower Unavailable Unavailable [...] Diagnoses Date Provider Providers Copied on Encounter [facility], [address], [place], [place], [address], tel:[phone] [facility] No Information 2 4-201 0 Doisy Edward. [address] , [address], [place], [place], [facility], [place]. tel:[phone] [facility], [address], [place], [place], [address], [place] tel:[phone] [facility] No Information Jun-1 0-201 0 Doisy Edward. [address] , [address], [place], [place], [facility], [place]. tel:[phone] Referring Provider: Lucian Higgins, [address] [place] [address], [facility]. tel:[phone] [facility], [address], [place], [place], [address], [place] tel:[phone] [facility] No Information Nov-0 8-201 0 Katarina Epstein. [address] [place] [address], [address], [place]. tel:[phone] Referring Provider: Lucian Higgins, [address] [place], [address]. tel:[phone] [facility], [address], [place], [place], [address], [place] tel:[phone] [facility] No Information 7-201 0 Doisy Edward. [address] , [address], [place], [address], [place]. tel:[phone] Referring Provider: Lucian Higgins, [address] [place], [address]. tel:[phone] [facility], [address], [place], [place], [address], [place] tel:[phone] [facility] No Information Oct-2 6-201 0 Doisy Edward. [address], [place], [address], [place]. tel:[phone] Referring Provider: Lucian Higgins, [address] [place], [address]. tel:[phone] Office/outpati ent Visit, [facility], [address], [place], [place], [address], [place] tel:[phone] [facility] No Information Oct-0 6-201 0 Doisy Edward. [address], [place], [address], [place]. tel:[phone] Referring Provider: Lucian Higgins, [address] [place], [address]. tel:[phone] [facility], [address], [place], [place], [address], [place] tel:[phone] [facility] No Information Oct-0 4-201 0 Katarina Epstein. [address] [place], [address], [place]. tel:[phone] Referring Provider: Lucian Higgins, [address] [place], [address]. tel:[phone] [facility], [address], [place], [place], [address], [place] tel:[phone] [facility] No Information Sep-1 3-201 0 Katarina Epstein. [address] [place], [address], [place]. tel:[phone] Referring Provider: Lucian Higgins, [address] [place], [address]. tel:[phone] [facility], [address], [place], [place], [address], [place] tel:[phone] [facility] No Information Mar-3 0-201 0 Katarina Epstein. [address] [place], [address], [place]. tel:[phone] Referring Provider: Lucian Higgins, [address] [place], [address]. tel:[phone] [facility], [address], [place], [place], [address], [place] tel:[phone] [facility] No Information 6-201 0 Katarina Epstein. [address] [place], [address], [place]. tel:[phone] Referring Provider: Lucian Higgins, [address] [place], [address]. tel:[phone] [facility], [address], [place], [place], [address], [place] tel:[phone] [facility] [place] No Information 1 2-201 0 Katarina Epstein. [address] [place], [address], [place]. tel:[phone] Referring Provider: Lucian Higgins, [address] [place], [address]. tel:[phone] Office/outpati ent Visit, [facility], [address], [place], [place], [address], [place] tel:[phone] [facility] [place] No Information 0 5-201 0 Katarina Epstein. [address] [place], [address], [place]. tel:[phone] Referring Provider: Lucian Higgins, [address] [place], [address]. tel:[phone] [facility], [address], [place], [place], [address], [place] tel:[phone] [facility] No Information Fabian-2 1-201 0 Katarina Epstein. [address] [place], [address], [place]. tel:[phone] Referring Provider: Kennedy Torrez, [facility] [place] [address], [place], [address]. tel:[phone] Office/outpati ent Visit, [facility], [address], [place], [place], [address], [place] tel:[phone] [facility] No Information Fabian-1 8-201 0 Ching Benavides. [facility] [place] , [address], [place], [address], [place]. tel:[phone] [facility], [address], [place], [place], [address], [place] tel:[phone] [facility] No Information Apr-1 5-201 0 Santiago OD James. [address] [place] [address]ate [place] , [address], [place], [address], [place]. tel:[phone] [facility], [address] [place] [address] [address], [place], [place], [address], [place] tel:[phone] [facility] No Information Apr-1 3-200 9 Katarina Epstein. [address] [place], [address], [place]. tel:[phone] [facility], [address], [place], [place], [address], [place] tel:[phone] [facility] No Information Mar-3 0-200 9 Katarina Epstein. [address] [place], [address], [place]. tel:[phone] Referring Provider: Lucian Higgins, [address] [place], [address]. tel:[phone] Office Consultation [facility], [address] [place] [address] [address], [place], [place], [address], tel:[phone] [facility] No Information Oct-2 6-200 9 Katarina Epstein. [address] [place], [address], [place]. tel:[phone] Referring Provider: James Torrez, [address], [place], [place], [facility]. tel:[phone] [facility], [address], [place], [place], [address], tel:[phone] [facility] No Information Oct-2 6-200 9 Santiago OD James. [address] , [address], [place], [address], [place]. tel:[phone] Family History Family Member Type Diagnosis Age At Onset No Information Payers Payer name Insurance type Covered libertarian ID Authoriza tion(s) No Information Social History [...]
--- OUTSIDE RECORDS SUMMARY | 2024-11-14 10:29 | XMS_ITS | Encounter Summary ---
Author Organization [facility] Address [facility] [place] [address] Care Team Providers Care Sack Sorter Name Role Phone Vinicius Abraham MD Primary Care Provider [phone] Vinicius Abraham MD Unavailable [phone] Heriberto Enriquez MD Unavailable [phone] Maxwell Carrizales DO Primary Care Provider [phone] Leda Burch Primary Care Provider [phone] Unknown, Provider Primary Care Provider Unavaila ble Encounter Details Date Type Department Care Team (Late st Contact Info) Description 11/07/2021 Lab Requisition [facility] Care DermPath Lab [address] [facility] [place] [place] [address] Soni Eastman MD [address] [facility] [address] [place] [address] Social History Tobacco Use Types Packs/Day Years [...] Description 02/24/2025 10:30 AM CDT Office Visit [facility] - Geriatrics [address] [facility] [place] [place] [address] Sandra Polanco MD [address] [place] [address] documented as of this encounter Procedures Procedure Name Priority Date/Time Associated Diagnosis Comments DERMATOPATHOLOGY Routine 11/07/2021 12:0 0 AM CDT documented in this encounter Results * DERMATOPATHOLOGY (11/07/2021 12:00 AM CDT) Case Report Dermatopathology Report Case: [id number] Authorizing Provider: Soni Eastman MD Collected: 11/07/2021 12:00 AM Ordering Location: [facility] DermPath Lab Received: 11/07/2021 04:42 PM Pathologist: Nancy Turner MD Specimen: Skin, left upper lip 2 12:37 PM CDT DERMATOPATHOLOGY LABORATORY Final Diagnosis Specimen A. 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 The specimen consists of a shave biopsy measuring 3x3x1 mm. Jar 0. 2 12:37 PM CDT DERMATOPATHOLOGY LABORATORY Microscopic Description Specimen A. SKIN, left upper lip: Sections show a lobular tumor composed of aggregates of epithelial cells extending from the epidermis into the dermis. The aggregates are composed of squamoid cells showing variable glycogen vacuolation (pale-staining cytoplasm). The tumor stains with CD34. Additional deeper sections were obtained and reviewed. 2 12:37 PM CDT DERMATOPATHOLOGY LABORATORY Disclaimer An external and internal positive and negative controls are appropriate for the histochemical, immunohistochemical and immunofluorescence stain(s) in this case (if any), except where stated explicitly. The performance characteristics of the stain(s) cited in this report were developed and its performance characteristic determined by the Dermatopathology Laboratory at [facility], directed by Dr. Luis Navas. These tests need not be, and therefore are not, approved by the [place] Food and Drug Administration. The tests are used for clinical purposes. Billing Codes Specimen Charges Stain Charges 66204 1 42867 1 2 12:37 PM CDT DERMATOPATHOLOGY LABORATORY Embedded Images 12:37 PM CDT DERMATOPATHOLOGY LABORATORY Pathology/Cytolog y TISSUE SPECIMEN FROM SKIN / Unknown 11/07/2021 11/07/2021 4:42 PM CDT Soni Eastman MD LAB - PATHOLOGY/CYT OLOGY ORDERABLES DERMATOPATHOLOGY LABORATORY [facility] Department of Dermatology [facility] Medicine [address] [place] [address], [address] [phone] documented in this encounter Visit Diagnoses Not on filedocumented in this encounter Care Teams Sack Sorter Relationship Specialty Start Date End Date Vinicius Abraham MD [address] [place] [address] PCP - General 08/21/17 03/13/22 Maxwell Carrizales DO [address] [place], [place] [id number] PCP - General 03/14/22 08/24/23 Leda Burch PA [address] [place], [place] [id number] PCP - General Nurse Practitioner Primary Care 08/25/23 02/10/24 Unknown, Provider PCP - General 02/11/24 Vinicius Abraham MD [address] [place] [address] Internal Medicine 08/21/17 [place] [address] [address] Anesthesiology-Pain Management 02/06/16 documented as of this encounter
--- OUTSIDE RECORDS SUMMARY | 2024-11-14 10:29 | XMS_ITS | Encounter Summary ---
Author Organization [facility] Address [address] [facility] [place] [address] Care Team Providers Care Atlassian Administrator Name Role Phone Vinicius bAraham MD Unavailable [phone] Heriberto Enriquez MD Unavailable [phone] Unknown, Provider Primary Care Provider Unavaila ble Encounter Details Date Type Department Care Team (Late st Contact Info) Description 08/24/2024 Lab Requisition [facility] - DermPath Lab [address] [facility], [place] [address] Soni Eastman MD [address] [facility] 3 [place] [address] Social History Tobacco Use Types Packs/Day Years [...] Description 02/24/2025 10:30 AM CDT Office Visit [facility] - Geriatrics [address] [facility], [place] [address] Sandra Polanco MD [address] [place] [address] documented as of this encounter Procedures Procedure Name Priority Date/Time Associated Diagnosis Comments DERMATOPATHOLOGY Routine 08/23/2024 3:33 AM FORCE ADJUSTMENT SUPERVISOR documented in this encounter Results * DERMATOPATHOLOGY (08/23/2024 3:33 AM FORCE ADJUSTMENT SUPERVISOR) Case Report Dermatopathology Report Case: [id number] Authorizing Provider: Soni Eastman MD Collected: 08/23/2024 03:33 AM Ordering Location: [facility] - Received: 08/24/2024 01:04 PM DermPath Lab Pathologist: Ilene Chung MD Specimen: Skin, left mid scalp 2:29 PM FORCE ADJUSTMENT SUPERVISOR DERMATOPATHOLOGY LABORATORY Final Diagnosis Specimen A. 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 The specimen consists of a shave biopsy measuring 9x6x3 mm. Jar 0. 5 2:29 PM FORCE ADJUSTMENT SUPERVISOR DERMATOPATHOLOGY LABORATORY Microscopic Description Specimen A. SKIN, [...] of marked compact hyperkeratosis. 5 2:29 PM [facility] DERMATOPATHOLOGY LABORATORY Disclaimer An external and internal positive and negative controls are appropriate for the histochemical, immunohistochemical and immunofluorescence stain(s) in this case (if any), except where stated explicitly. The performance characteristics of the stain(s) cited in this report were developed and its performance characteristic determined by the Dermatopathology Laboratory at [facility], directed by Dr. Luis Navas. These tests need not be, and therefore are not, approved by the [place] Food and Drug Administration. The tests are used for clinical purposes. Billing Codes Specimen Charges Stain Charges 53442 1 5 2:29 PM FORCE ADJUSTMENT SUPERVISOR DERMATOPATHOLOGY LABORATORY Embedded Images 5 2:29 PM [facility] DERMATOPATHOLOGY LABORATORY Pathology/Cytolo gy TISSUE SPECIMEN FROM SKIN / Unknown 08/23/2024 3:33 AM FORCE ADJUSTMENT SUPERVISOR 08/24/2024 1:04 PM FORCE ADJUSTMENT SUPERVISOR Soni Eastman MD LAB - PATHOLOGY/CYT OLOGY ORDERABLES DERMATOPATHOLOGY LABORATORY [facility] Department of Dermatology [facility] [address] [place] [address], [address] [phone] documented in this encounter Visit Diagnoses Not on filedocumented in this encounter Care Teams Atlassian Administrator Relationship Specialty Start Date End Date Unknown, Provider PCP - General 02/11/24 Vinicius Abraham MD Internal Medicine 08/21/17 [place] [address] [place] [address] [place] [id number] Anesthesiology-Pain Management 02/06/16 documented as of this encounter
[2024-11-14 10:59] VITALS: BP 171/68; PULSE 48
[2024-11-14 11:00] VITALS: BP 159/86; PULSE 54
[2024-11-14 11:02] VITALS: BP 170/62; PULSE 54
--- NOTE | 2024-11-14 11:10 | PC.NURSE ---
Patient ambulated around department with this RN with assistance of walker. Patient was steady, but states his legs felt weak . Provider will be made aware.
[2024-11-14 12:30] VITALS: BP 162/68; PULSE 52; RESP 20; O2SAT 97
--- NOTE | 2024-11-14 12:49 | ED.WEAKNESS ---
HPI - Weakness General Chief complaint: Weakness Stated complaint: gen weakness x weeks/med change Time Seen by Provider: 11/14/24 08:15 History of Present Illness HPI Narrative: Patient is an 84-year-old male who presents ER with generalized weakness. Reports legs feel heavy when he walks now he is relying on his walker. No chest pain or shortness of breath. 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 No arm weakness or numbness. This has been progressive over last 2 weeks. He missed his therapy last week as well. Related Data Home Medications ?Medication ?Instructions ?Recorded ?Confirmed ?Last Taken ?Type amiodarone 100 mg tablet 100 mg PO HS 06/29/23 11/09/24 06/28/23 History finasteride 5 mg tablet mg PO 11/01/24 11/09/24 Unknown History Allergies Allergy/AdvReac Type Severity Reaction Status Date / Time Penicillins Allergy Intermediate Rash Verified 11/01/24 08:21 Review of Systems Review of Systems: All systems reviewed & are unremarkable except as noted in HPI and below Constitutional: Constitutional: Reports no additional constitutional complaints ENT: Reports system reviewed and no additional complaints, except as documented Cardiovascular: Cardiovascular: Reports no additional cardiovascular complaints Respiratory: Respiratory: Reports no additional respiratory complaints Musculoskeletal: Musculoskeletal: Reports no additional musculoskeletal complaints Neurologic: Reports system reviewed and no additional complaints, except as documented [facility] Past Medical History Medical History ASHD (arteriosclerotic heart disease) Age-related nuclear cataract of left eye Age-related nuclear cataract of right eye Benign essential hypertension Benign prostatic hyperplasia Body mass index [BMI] 29.0-29.9, adult (06/01/19) Calcification of both carotid arteries Cerebrovascular accident (CVA) Cystoid macular degeneration of both eyes DM w/o complication type II Gastroesophageal reflux disease without esophagitis Lesion of mandible Multinodular goiter On detention drug therapy Other and unspecified hyperlipidemia Pain of left great toe Pneumonia due to infectious organism Sciatica of right side Thyroid nodule URI, acute Diabetes Hyperlipidemia Atrial fibrillation Hamstring tear Chest pain Diabetes 1.5, managed as type 2 Dizziness Dyslipidemia associated with type 2 diabetes mellitus Chronic fatigue, unspecified SOB (shortness of breath) Surgical History Surgical History S/P discectomy History of ear, nose, and throat (ENT) surgery Previous back surgery Family History Family History Father Malignant neoplasm of prostate Mother Old age Other Diabetes mellitus Social History Social History Smoking status: Never smoker Second hand tobacco smoke exposure: Yes (when he was a kid ) Alcohol intake: current Drinks per week: 3 Substance use: never Substance use type: does not use Lack of Transportation: No Lack of Food: Never True Current Housing: I Have Housing Concerned About Future Housing: No Difficulty Paying Gas/Electric Bills: No Difficulty Paying for Meds: No Currently Unemployed: No Education: Bachelor's Degree Difficulty w/ Childcare or Family Care: No Occupation/Education: retired Gender identity (if verbalized by the patient): Male Sexual Orientation (if Verbalized by the Patient): Straight or Heterosexual Spiritual care concerns: No Agree to blood products: Yes Exam Narrative: GENERAL: Well-appearing, well-nourished, and in no acute distress. HEAD: Normocephalic, atraumatic. ENT: Mucous membranes moist. CHEST: Clear to auscultation. No respiratory distress. HEART: Bradycardic regular. Normal peripheral pulses. ABDOMEN: Soft, nontender, nondistended. EXTREMITIES: Normal range of motion. No edema. SKIN: Warm, dry, no rash. NEURO: Alert and oriented x3. No upper lower extremity drift. Normal vnio-op-eemr testing. PSYCH: Normal mood and affect. Course Course Emergency Course: Labs unremarkable. Ambulates well with his walker and is stable to be discharged home. May be having increased neuropathy symptoms and recommend he follow-up with PCP. Vital Signs Vital signs: Vital Signs Temperature 97.6 F 11/14/24 08:01 Pulse Rate 51 L 11/14/24 08:01 Respiratory Rate 19 11/14/24 08:01 Blood Pressure 178/67 H 11/14/24 08:01 Pulse Oximetry 97 11/14/24 08:01 Oxygen Delivery Room Air 11/14/24 08:01 Temperature 97.6 F 11/14/24 08:01 Pulse Rate 52 L 11/14/24 12:30 Respiratory Rate 20 11/14/24 12:30 Blood Pressure 162/68 H 11/14/24 12:30 Pulse Oximetry 97 11/14/24 12:30 Oxygen Delivery Room Air 11/14/24 08:01 MDM - Weakness Lab Data 11/14/24 09:05 11/14/24 09:05 Labs: Lab Results 11/14/24 Range/Units 09:05 WBC 8.7 (4.5-10.0) K/mm3 RBC 4.77 (4.6-6.20) M/mm3 Hgb 14.3 (14.0-18.0) g/dL Hct 45.1 (42.0-52.0) % MCV 94.5 (80-100) fl MCH 30.0 (26-34) pg MCHC 31.7 L (32-36) g/dl RDW 13.2 (11.5-14.5) % Plt Count 185 (150-375) k/mm3 MPV 11.1 H (7.4-10.4) fl Immature Gran % (Auto) 0.5 (0-0.5) % Neut % (Auto) 70.7 (45.5-73.1) % Lymph % (Auto) 18.0 L (18.3-44.2) % [place] % (Auto) 8.8 H (2.6-8.5) % Eos % (Auto) 1.3 (0-4.4) % Baso % (Auto) 0.7 (0.2-1.2) % Lymph # (Auto) 1.56 (0.9-3.2) K/mm3 [place] # (Auto) 0.8 H (0.1-0.6) K/mm3 Eos # (Auto) 0.1 (0-0.3) K/mm3 Baso # (Auto) 0.1 (0.0-0.1) K/mm3 Abs Immat Gran (auto) 0.04 H (0.00-0.031) K/mm3 Absolute Neuts (auto) 6.1 (1.3-6.7) K/mm3 Absolute Nucleated RBC 0.000 (0.0-0.012) K/mm3 Nucleated RBC % 0.0 (0.0-0.2) % Sodium 139 (137-145) mmol/L Potassium 4.5 (3.4-5.0) mmol/L Chloride 103 (98-107) mmol/L Carbon Dioxide 27 (22-30) mmol/L Anion Gap 9 (4-12) mmol/L BUN 33 H (9-20) mg/dL Creatinine 1.31 H (0.7-1.3) mg/dL Estim Creat Clear Calc 43 ml/min Estimated GFR 52 L (59 - ) Glucose 117 H (65-110) mg/dL Calcium 9.0 (8.4-10.2) mg/dL Total Bilirubin 1.1 (0.2-1.3) mg/dL AST 38 (17-59) U/L ALT 38 (6-50) U/L Alkaline Phosphatase 53 (38-126) U/L Total Protein 8.0 (6.3-8.2) g/dL Albumin 4.4 (3.5-5.1) g/dL Urine Color Yellow (Yellow) Urine Appearance Clear (Clear) Urine pH 5.5 (5.0-9.0) Ur Specific Clifford 1.018 (1.001-1.035) Urine Protein Negative (Negative) mg/dL Urine Glucose (UA) Negative (Negative) mg/dL Urine Ketones Negative (Negative) mg/dL Ur Blood (Man) Negative (Negative) Urine Nitrate Negative (Negative) Urine Bilirubin Negative (Negative) Urine Urobilinogen 0.2 (<2.0) mg/dL Leukocyte Esterase Rfl Negative (Negative) HALLIE/UL Imaging Data Radiologist's impression: ITS Impressions Chest X-Ray 11/14/24 09:44 IMPRESSION: No acute cardiopulmonary pathology. ECG Data EKG #1: ECG completion date: 11/14/24 ECG completion time: 08:56 EKG Interpretation: bradycardia (46), sinus rhythm, non-specific ST changes, normal QRS and normal QT Discharge Plan Discharge Clinical Impression: General weakness Patient Disposition: Home Condition: Stable Instructions: Weakness (ED) Additional Instructions: Return to the ER if you have increased weakness, you cannot keep down food water, or have additional concerns. Patient Language: Congolese Prescriptions: No Action (DME) OneTouch Verio test strips Strip 1 .ROUTE .COMPLEX Qty: 100 2RF Rx Instructions: USE 1 STRIP DAILY FOR GLUCOSE CHECK finasteride 5 mg tablet PO doxycycline hyclate 100 mg capsule 100 mg PO BID Qty: 14 0RF amiodarone 100 mg tablet 100 mg PO HS amlodipine 2.5 mg tablet 2.5 mg PO DAILY Qty: 90 1RF Januvia 50 mg tablet See Rx Instructions .ROUTE .COMPLEX Qty: 150 0RF Dose Instruction: TAKE ONE TABLET BY MOUTH DAILY Rx Instructions: TAKE ONE TABLET BY MOUTH DAILY omeprazole 20 mg capsule,delayed release(DR/EC) See Rx Instructions .ROUTE .COMPLEX Qty: 180 1RF Dose Instruction: TAKE 1 CAPSULE BY MOUTH TWICE A DAY BEFORE MEALS DIRECTED Rx Instructions: TAKE 1 CAPSULE BY MOUTH TWICE A DAY BEFORE MEALS DIRECTED [id number]-[id number] oil [Metanx (algal oil)] 3 mg-35 mg-2 mg -90.314 mg capsule 1 cap PO BID Qty: 90 1RF lisinopril 10 mg tablet See Rx Instructions .ROUTE .COMPLEX Qty: 90 0RF Dose Instruction: TAKE 1 TABLET BY MOUTH DAILY Rx Instructions: TAKE 1 TABLET BY MOUTH DAILY metformin 500 mg tablet See Rx Instructions .ROUTE .COMPLEX Qty: 90 1RF Dose Instruction: TAKE ONE TABLET (500 MG) BY MOUTH DAILY; TAKE 1 TABLET BY MOUTH DAILY Rx Instructions: TAKE ONE TABLET (500 MG) BY MOUTH DAILY; TAKE 1 TABLET BY MOUTH DAILY Eliquis 2.5 mg tablet See Rx Instructions .ROUTE .COMPLEX Qty: 60 5RF Dose Instruction: TAKE 1 TABLET BY MOUTH TWICE DAILY Rx Instructions: TAKE 1 TABLET BY MOUTH TWICE DAILY Follow-up/Referrals: Leda Burch APRN [Primary Care Provider] - 1 Week
== END 2024-11-14 13:07 | disposition home or self-care (01) ==
PROVIDERS: Emergency Provider Emergency Medicine; PCP Nurse Practitioner Family
DX: R53.1 Weakness (principal); I25.10 Atherosclerotic heart disease of native coronary artery without angina pectoris; I10 Essential (primary) hypertension; I48.91 Unspecified atrial fibrillation; E13.69 Other specified diabetes mellitus with other specified complication; E78.5 Hyperlipidemia, unspecified; N40.0 Benign prostatic hyperplasia without lower urinary tract symptoms; K21.9 Gastro-esophageal reflux disease without esophagitis; H35.353 Cystoid macular degeneration, bilateral; H25.13 Age-related nuclear cataract, bilateral; Z87.01 Personal history of pneumonia (recurrent); Z86.73 Personal history of transient ischemic attack (TIA), and cerebral infarction without residual deficits; Z77.22 Contact with and (suspected) exposure to environmental tobacco smoke (acute) (chronic); Z79.899 Other long term (current) drug therapy; Z79.01 Long term (current) use of anticoagulants; Z79.84 Long term (current) use of oral hypoglycemic drugs; R00.1 Bradycardia, unspecified; R94.31 Abnormal electrocardiogram [ECG] [EKG]
CPT/HCPCS: 36415; 71046; 80053; 81003; 85025; 93005; 99283

== ENCOUNTER 2024-11-23 15:15 | Outpatient (CLI) | payer MEDICARE, SELFPAY ==
--- NOTE | ~2024-11-23 | MR_ITS ---
MRI of the cervical spine Clinical History: Radiculopathy Technique: Axial T2-weighted and gradient images, and sagittal T1-weighted, T2-weighted, and STIR john ges were acquired. Findings: There is straightening of the normal cervical lordosis. There is 3.5 mm anterolisthesis of C6 over C7. There is 3 mm anterolisthesis of C7 over T1. No suspicious bone marrow signal abnormality seen. No acute fracture. At C2-C3, there is no significant disc bulge or herniation. No canal stenosis or cord compression. No definite neural foraminal narrowing is mild facet arthropathy. At C3-C4, there is mild disc osteophyte complex. There is mild canal stenosis and mild flattening the ventral cord. There is bilateral neural foraminal narrowing, right worse than left, with bilateral f acet arthropathy. At C4-C5, there is minimal disc osteophyte complex. No canal stenosis or cord compression. There is b ilateral facet arthropathy. Probable mild right neural foraminal narrowing. At C5-C6, there is minimal disc bulge. No canal stenosis or cord compression. There is bilateral neur al foraminal narrowing with bilateral facet arthropathy. At C6-C7, there is minimal disc bulge. No canal stenosis or cord compression. Probable right neural f oraminal narrowing with right facet arthropathy. No abnormal signal seen in the spinal cord. Paravertebral soft tissues are unremarkable. Impression: Moderate degenerative spondylosis, as above. 3 mm anterolisthesis of C7 over T1. 3.5 mm anterolisthesis of C6 over C7. Reviewed, dictated and finalized at [facility]. Impression: Moderate degenerative spondylosis, as above. 3 mm anterolisthesis of C7 over T1. 3.5 mm anterolisthesis of C6 over C7.
--- OUTSIDE RECORDS SUMMARY | 2024-11-23 16:30 | XMS_ITS | Encounter Summary ---
Author Organization [facility] Address [address] [facility] [place] [address] Care Team Providers Care Tax Collector Name Role Phone Vinicius Abraham MD Unavailable [phone] Heriberto Enriquez MD Unavailable [phone] Unknown, Provider Primary Care Provider Unavaila ble Encounter Details Date Type Department Care Team (Late st Contact Info) Description 08/24/2024 Lab Requisition [facility] - Derm[facility] Lab [address] [facility] [place] [address] Soni Eastman MD [address] [facility] 3 [place] [address] Social History Tobacco Use Types Packs/Day Years Used Date Smoking Tobacco: Never Smokeless Tobacco: Never Alcohol Use Standard Drinks/Week Comments Yes 0 (1 standard drink = 0.6 oz pur e alcohol) PHQ-2 Answer Date Recorded PHQ2 TOTAL SCORE 0 09/22/2022 Sex and Gender Information Value Date Recorded Sex Assigned at Not on file Legal Sex Male 11:20 AM CDT Gender Identity Not on file Sexual Orientation Not on file Occupation Industry Job Start Date Job End Date RETIRED Not on file Not on file Not on file documented as of this encounter Functional Status * Is person deaf or have serious hearing difficulty? Answer Date of Assessment Author No 05/25/2016 1:30 AM CDT Yen Terry RN * Is person blind or have serious difficulty seeing? Answer Date of Assessment Author Yes 05/25/2016 1:30 AM CDT Yen Terry RN * Does person have serious difficulty walking/climbing stairs? Answer Date of Assessment Author Yes 05/25/2016 1:30 AM CDT Yen Terry RN * Does person have difficulty dressing/bathing? Answer Date of Assessment Author Yes 05/25/2016 1:30 AM CDT Yen Terry RN * Does person have difficulty doing errands alone? Answer Date of Assessment Author Yes 05/25/2016 1:30 AM CDT Yen Terry RN documented as of this encounter Mental Status * Does person have difficulty concentrating/remembering/making decisions? Answer Entry Date Author No 05/25/2016 1:30 AM CDT Yen Terry RN documented in this encounter Plan of Treatment Upcoming Encounters Date Type Department Care Team (Late st Contact Info) Description 02/24/2025 10:30 AM CDT Office Visit [facility] - Geriatrics [address] [facility] [place] [address] Sandra Polanco MD [address] [facility] [address] [place] [address] documented as of this encounter Procedures Procedure Name Priority Date/Time Associated Diagnosis Comments DERMATOPATHOLOGY Routine 08/23/2024 3:33 AM PEDIATRIC CRITICAL CARE NURSE documented in this encounter Results * DERMATOPATHOLOGY (08/23/2024 3:33 AM PEDIATRIC CRITICAL CARE NURSE) Case Report Dermatopathology Report Case: [id number] Authorizing Provider: Soni Eastman MD Collected: 08/23/2024 03:33 AM Ordering Location: [facility] - Received: 08/24/2024 01:04 PM DermPath Lab Pathologist: Ilene Chung MD Specimen: Skin, left mid scalp 2:29 PM PEDIATRIC CRITICAL CARE NURSE DERMATOPATHOLOGY LABORATORY Final Diagnosis Specimen A. 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 The specimen consists of a shave biopsy measuring 9x6x3 mm. Jar 0. 2:29 PM [facility] DERMATOPATHOLOGY LABORATORY Microscopic Description Specimen A. SKIN, [...] column of marked compact hyperkeratosis. 2:29 PM [facility] DERMATOPATHOLOGY LABORATORY Disclaimer An external and internal positive and negative controls are appropriate for the histochemical, immunohistochemical and immunofluorescence stain(s) in this case (if any), except where stated explicitly. The performance characteristics of the stain(s) cited in this report were developed and its performance characteristic determined by the Dermatopathology Laboratory at [facility], directed by Dr. Luis Navas. These tests need not be, and therefore are not, approved by the [place] Food and Drug Administration. The tests are used for clinical purposes. Billing Codes Specimen Charges Stain Charges 53034 1 2:29 PM [facility] DERMATOPATHOLOGY LABORATORY Embedded Images 2:29 PM [facility] DERMATOPATHOLOGY LABORATORY Pathology/Cytolo gy TISSUE SPECIMEN FROM SKIN / Unknown 08/23/2024 3:33 AM PEDIATRIC CRITICAL CARE NURSE 08/24/2024 1:04 PM [facility] Soni Esatman MD LAB - PATHOLOGY/CYTOLOGY OR DERABLES Final Result DERMATOPATHOLOGY LABORATORY [facility] - Department of Dermatology [facility] Medicine [address] [place] [address], [address] [phone] documented in this encounter Visit Diagnoses Not on filedocumented in this encounter Care Teams Tax Collector Relationship Specialty Start Date End Date Unknown, Provider PCP - General 02/11/24 Vinicius Abraham MD Internal Medicine 08/21/17 [place] [address] [place] [id number] Anesthesiology-Pain Management 02/06/16 documented as of this encounter
--- OUTSIDE RECORDS SUMMARY | 2024-11-23 16:31 | XMS_ITS | Continuity of Care Document ---
Author Organization [facility] [place], [place] Address [address] [place] [address] Phone Care Team Providers Care Airport Screener Name Role Phone Kennedy Flower Unavailable Unavailable [...] Diagnoses Date Provider Providers Copied on Encounter [facility], [address], [place], [place], [address], tel:[phone] [facility] No Information 2 4-201 0 Doisy Edward. [address] , [address], [place], [place], [facility], [place]. tel:[phone] [facility], [address], [place], [place], [address], [place] tel:[phone] [facility] No Information Jun-1 0-201 0 Doisy Edward. [address] [facility] [address] , [address], [place], [facility], [place]. tel:[phone] Referring Provider: Lucian Higgins, [address] [place] [address], [facility]. tel:[phone] [facility], [address], [place], [place], [address], [place] tel:[phone] [facility] No Information Nov-0 8-201 0 Katarina Epstein. [address] [place] [address], [address], [place]. tel:[phone] Referring Provider: Lucian Higgins, [address] [place], [address]. tel:[phone] [facility], [address], [place], [place], [address], [place] tel:[phone] [facility] No Information 7-201 0 Doisy Edward. [address] [facility] [address] , [address], [place], [address], [place]. tel:[phone] Referring Provider: Lucian Higgins, [address] [place], [address]. tel:[phone] [facility], [address], [place], [place], [address], [place] tel:[phone] [facility] No Information Oct-2 6-201 0 Doisy Edward. [address], [place], [address], [place]. tel:[phone] Referring Provider: Lucian Higgins, [address] [place], [address]. tel:[phone] Office/outpati ent Visit, [facility], [address], [place], [place], [address], [place] tel:[phone] [facility] No Information Oct-0 6-201 0 Doisy Edward. [address], [place], [address], [place]. tel:[phone] Referring Provider: Lucian Higgins, [address] [place], [address]. tel:[phone] [facility], [address], [place], [place], [address], [place] tel:[phone] [facility] No Information Oct-0 4-201 0 Katarina Epstein. [address] [place], [address], [place]. tel:[phone] Referring Provider: Lucian Higgins, [address] [place], [address]. tel:[phone] [facility], [address], [place], [place], [address], [place] tel:[phone] [facility] No Information Sep-1 3-201 0 Katarina Epstein. [address] [place], [address], [place]. tel:[phone] Referring Provider: Lucian Higgins, [address] [place], [address]. tel:[phone] [facility], [address], [place], [place], [address], [place] tel:[phone] [facility] No Information Mar-3 0-201 0 Katarina Epstein. [address] [place], [address], [place]. tel:[phone] Referring Provider: Lucian Higgins, [address] [place], [address]. tel:[phone] [facility], [address], [place], [place], [address], [place] tel:[phone] [facility] No Information 6-201 0 Katarina Epstein. [address] [place], [address], [place]. tel:[phone] Referring Provider: Lucian Higgins, [address] [place], [address]. tel:[phone] [facility], [address], [place], [place], [address], [place] tel:[phone] [facility] No Information 1 2-201 0 Katarina Epstein. [address] [place], [address], [place]. tel:[phone] Referring Provider: Lucian Higgins, [address] [place], [address]. tel:[phone] Office/outpati ent Visit, [facility], [address], [place], [place], [address], [place] tel:[phone] SEC [facility] [place] No Information 0 5-201 0 Katarina Epstein. [address] [place], [address], [place]. tel:[phone] Referring Provider: Lucian Higgins, [address] [place], [address]. tel:[phone] [facility], [address], [place], [place], [address], [place] tel:[phone] [facility] No Information Fabian-2 1-201 0 Katarina Epstein. [address] [place], [address], [place]. tel:[phone] Referring Provider: Kennedy Torrez, [facility], [facility] [address], [place], [address]. tel:[phone] Office/outpati ent Visit, [facility], [address], [place], [place], [address], [place] tel:[phone] [facility] No Information Fabian-1 8-201 0 Ching Benavides. [facility], [facility] [address] , [address], [place], [address], [place]. tel:[phone] [facility], [address], [place], [place], [address], [place] tel:[phone] [facility] No Information Apr-1 5-201 0 Santiago OD James. [address] [place], [place] [address] [place] [address] , [address], [place], [address], [place]. tel:[phone] [facility], [address] [place] [address] [address], [place], [place], [address], [place] tel:[phone] [facility] No Information Apr-1 3-200 9 Katarina Epstein. [address] [place], [address], [place]. tel:[phone] [facility], [address], [place], [place], [address], [place] tel:[phone] [facility] No Information Mar-3 0-200 9 Katarina Epstein. [address] [place], [address], [place]. tel:[phone] Referring Provider: Lucian Higgins, [address] [place], [address]. tel:[phone] Office Consultation [facility], [address] [place] [address] [address], [place], [place], [address], tel:[phone] [facility] No Information Oct-2 6-200 9 Katarina Epstein. [address] [place], [address], [place]. tel:[phone] Referring Provider: James Torrez, [address], [place], [facility]. tel:[phone] [facility], [address], [place], [place], [address], tel:[phone] [facility] No Information Oct-2 6-200 9 Santiago OD James. [address] [facility] [address] , [address], [place], [address], [place]. tel:[phone] Family History Family Member Type Diagnosis Age [...]
--- OUTSIDE RECORDS SUMMARY | 2024-11-23 16:31 | XMS_ITS | Encounter Summary ---
Author Organization [facility] Address [address] [facility] [address] [place] [address] Care Team Providers Care Crown Perforator Operator Name Role Phone Vinicius Abraham MD Primary Care Provider [phone] Vinicius Abraham MD Unavailable [phone] Heriberto Enriquez MD Unavailable [phone] Maxwell Carrizales DO Primary Care Provider [phone] Leda Burch Primary Care Provider [phone] Unknown, Provider Primary Care Provider Unavaila ble Encounter Details Date Type Department Care Team (Late st Contact Info) Description 11/07/2021 Lab Requisition [facility] Care DermPath Lab [address] [facility], [facility] [place] [id number] Soni Eastman MD [address] [facility] 3 [place] [address] Social History Tobacco Use Types Packs/Day Years [...] Description 02/24/2025 10:30 AM CDT Office Visit [facility] - Geriatrics [address] [facility] [place] [address] Sandra Polanco MD [address] [address] documented as of this encounter Procedures Procedure Name Priority Date/Time Associated Diagnosis Comments DERMATOPATHOLOGY Routine 11/07/2021 12:0 0 AM CDT documented in this encounter Results * DERMATOPATHOLOGY (11/07/2021 12:00 AM CDT) Case Report Dermatopathology Report Case: [id number] Authorizing Provider: Soni Eastman MD Collected: 11/07/2021 12:00 AM Ordering Location: [facility] DermPath Lab Received: 11/07/2021 04:42 PM Pathologist: Nancy Turner MD Specimen: Skin, left upper lip 12:37 PM CDT DERMATOPATHOLOGY LABORATORY Final Diagnosis Specimen A. 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 The specimen consists of a shave biopsy measuring 3x3x1 mm. Jar 0. 12:37 PM CDT DERMATOPATHOLOGY LABORATORY Microscopic Description [...] characteristic determined by the Dermatopathology Laboratory at [facility], directed by Dr. Luis Navas. These tests need not be, and therefore are not, approved by the [place] Food and Drug Administration. The tests are used for clinical purposes. Billing Codes Specimen Charges Stain Charges 69193 1 28511 1 2 12:37 PM CDT DERMATOPATHOLOGY LABORATORY Embedded Images 2 12:37 PM CDT DERMATOPATHOLOGY LABORATORY Pathology/Cytolog y TISSUE SPECIMEN FROM SKIN / Unknown 11/07/2021 11/07/2021 4:42 PM CDT us Soni Eastman MD LAB - PATHOLOGY/CYTOLOGY OR DERABLES Final Result DERMATOPATHOLOGY LABORATORY [facility] - Department of Dermatology [address], [address] [phone] documented in this encounter Visit Diagnoses Not on filedocumented in this encounter Care Teams Crown Perforator Operator Relationship Specialty Start Date End Date Vinicius Abraham MD [address] [place] [address] PCP - General 08/21/17 03/13/22 Maxwell Carrizales DO [address] [place] [address] PCP - General 03/14/22 08/24/23 Leda Burch PA [address] [place] [address] PCP - General Nurse Practitioner Primary Care 08/25/23 02/10/24 Unknown, Provider PCP - General 02/11/24 Vinicius Abraham MD [address] [place] [address] Internal Medicine 08/21/17 [place] [address] [facility] [address] Anesthesiology-Pain Management 02/06/16 documented as of this encounter
--- OUTSIDE RECORDS SUMMARY | 2024-11-23 16:31 | XMS_ITS | Clinical Summary ---
Author Organization [facility] Address [address] [place] [address] Care Team Providers Care Pharmacy Informaticist Name Role Phone Vinicius Abraham MD Unavailable [phone] Heriberto Enriquez MD Unavailable [phone] Unknown, Provider Primary Care Provider Unavaila ble Source Comments [facility],non-owned Affiliates and Associated Physician Practices is amultiple site organization consisting of ambulatory clinics and hospital sitesin [place], [place], [place] and [place]. This disclosure is being madepursuant to the Care Everywhere program and may not contain all information available regarding this patient. Last updated 18.[facility] Allergies Active Allergy Reactions Criticality Noted Date Comments Penicillins Rash Medium 02/06/2016 Medications * Be aware that medications may not be up to date on this document. Alwaysverify current medications with the patient. JANUVIA 50 MG tablet Take 1 (one) tablet by mouth once daily 6 Active metFORMIN (Glucophage) 500 MG tablet Take 1 (one) tablet by mouth once daily 2 Active tamsulosin (Flomax) 0.4 MG capsule Take 1 (one) capsule by mouth once daily 2 Active lisinopril (Prinivil; Zestril) 10 MG tablet Take 1 (one) tablet by mouth once daily Active B ASKWAII-LKMGPY-B A PO Take 1 tablet by mouth once daily Active omeprazole EC (PriLOSEC OTC) 20 MG tabletIndication s:Gastroesophage al reflux disease without esophagitis Take 2 (two) tablets by mouth daily before breakfast 180 tablet 3 2 Active Eliquis 2.5 MG tablet Take 1 (one) tablet by mouth once daily 3 Active OneTouch Verio test strip Use 1 (one) strip once daily 1 Active rosuvastatin (Crestor) 5 MG tablet Take 1 (one) tablet by mouth once daily 1 Active Melatonin 1 MG Take 1 tablet by mouth once daily Active albuterol HFA (Proventil; Ventolin; Proair) 108 (90 Base) MCG/ACT inhaler Inhale 1 (one) puff by mouth as directed 3 Active ketoconazole (Nizoral) 2 % shampoo 4 Active Airsupra 90-80 MCG/ACT AERO INHALE 2 PUFFS BY MOUTH EVERY 4-6 HOURS NEEDED 4 Active amLODIPine (Norvasc) 2.5 MG tablet Take 1 (one) tablet by mouth once daily 4 Active W-Gfkghvtyybxo-Y lgae-B12-B6 (Metanx) 3-90.314-2-35 MG capsule 4 Active escitalopram (Lexapro) 5 MG tabletIndication s:DAWSON (generalized anxiety disorder) Take 1 (one) tablet by mouth once daily 90 tablet 4 4 Active Active Problems Problem Noted Date Diagnosed [...] current use of insulin 04/18/2022 04/18/2022 Immunizations Immunization Administration Dates Next Due INFLUENZA VACCINE, ADJUVANTE [...] file Not on file Not on file Last Filed Vital Signs Vital Sign Reading Time Taken Comments Blood Pressure 168/71 04/01/2024 9:11 AM CDT sta nding Pulse 59 04/01/2024 9:09 AM CDT Temperature 36.8 C (98.2 F) 09/09/2023 10:32 AM CUSTOMER SUPPORT PROFESSIONAL Respiratory Rate 18 02/06/2023 9:43 AM CDT Oxygen Saturation 97% 04/01/2024 9:09 AM CDT Inhaled Oxygen Concentration - - Weight 94.8 kg (209 lb) 04/01/2024 9:09 AM CDT Height 182.9 cm (6') 09/09/2023 10:32 AM CUSTOMER SUPPORT PROFESSIONAL Body Mass Index 28.35 09/09/2023 10:32 AM CUSTOMER SUPPORT PROFESSIONAL Plan of Treatment Upcoming Encounters Date Type Department Care Team (Late st Contact Info) Description 02/24/2025 10:30 AM CDT Office Visit [facility] [address] [facility], [place] [address] Sandra Polanco MD [address] [place], [place] [id number] Health Maintenance Due Date Last Done Comments [...] VACCINE (3 - season) 2024 10/23/2020, 09/20/2020 DEPRESSION SCREENING 08/10/2024 09/22/2022, 04/18/20 DIABETES - URINE PROTEIN SCREENING 08/10/2024 MEDICARE AW CALENDAR YEAR 2024 DIABETES-HGB A1C 10/02/2024 04/01/2024, [...] Procedure Name Priority Date/Time Associated Diagnosis Comments HEMOGLOBIN A1C - POINT OF CARE (AMB) [facility] Routine 04/01/2024 9:22 AM CDT Type 2 diabetes mellitus with stage 3 chronic kidney disease, without long-term current use of insulin, unspecified whether stage 3a or 3b CKD COMPREHENSIVE METABOLIC PANEL STAT 10/12/2017 6:46 AM CUSTOMER SUPPORT PROFESSIONAL from Last 3 Months or Most Recently Relevant to Health Maintenance Results * HEMOGLOBIN A1C - POINT OF CARE (AMB) [facility] (04/01/2024 9:22 AM CDT) Hemoglobin A1c POCT 6.4 % [facility] BLOOD SPECIMEN / Unknown 04/01/2024 9:22 AM CDT us Sandra Polanco MD LAB - POINT OF CARE ORDERABL ES Final Result [address] [place] [address] [phone] * (ABNORMAL) COMPREHENSIVE METABOLIC PANEL (10/12/2017 6:46 AM CUSTOMER SUPPORT PROFESSIONAL) BUN 28(H) 7 - 26 mg/dL [facility] Creatinine 1.2 0.6 - 1.2 mg/dL [facility] Sodium 141 136 - 145 mmol/L [facility] Potassium 4.4 3.5 - 4.5 mmol/L [facility] Chloride 103 98 - 107 mmol/L [facility] CO2 26 22 - 29 mmol/L [facility] Glucose 146(H) 70 - 115 mg/dL [facility] Calcium 9.1 8.4 - 10.2 mg/dL [facility] Protein Total 7.3 6.0 - 8.3 g/dL [facility] Albumin 3.8 3.4 - 5.0 g/dL [facility] Bilirubin Total 0.8 0.2 - 1.2 mg/dL [facility] Alkaline Phosphatase 59 40 - 150 Units/L [facility] ALT 35 0 - 55 Units/L [facility] AST 29 5 - 34 Units/L [facility] Anion Gap 16 8 - 18 [facility] BUN/Creatinine Ratio 23 7 - 23 [facility] Osmolality Calculated 300 270 - 300 mOsm/kg [facility] Albumin/Globulin Ratio 1.1 1.1 - 2.3 [facility] eGFR 59(L) >60 mL/min/1.7 3 m2 [facility] Blood specimen (specimen) BLOOD SPECIMEN / Unknown 10/12/2017 6:46 AM CUSTOMER SUPPORT PROFESSIONAL 10/12/2017 6:48 AM CUSTOMER SUPPORT PROFESSIONAL Heladio Adhikari MD LAB - CHEMISTRY ORDERABLE S Final Result [place] [address] [address] [phone] from Last 3 Months or Most Recently Relevant to Health Maintenance Insurance AETNA MEDICARE ADV AETNA AETNA AETNA AETNA AETNA AETNA AETNA AETNA AETNA AETNA AETNA AETNA AETNA AETNA AETNA AETNA AETNA Advance Directives * Full Code (Latest Code Status on File) Date Activated Date Inactivated Comments 05/25/2016 6:59 AM 05/26/2016 4:43 PM * Full Code Date Activated Date Inactivated Comments 05/22/2016 3:45 PM 05/23/2016 11:38 AM Care Teams Pharmacy Informaticist Relationship Specialty Start Date End Date Unknown, Provider PCP - General 02/11/24 Vinicius Abraham MD Internal Medicine 08/21/17 [place] [address] [place] [address] Anesthesiology-Pain Management 02/06/16
== END 2024-11-23 15:16 | disposition home or self-care (01) ==
PROVIDERS: PCP Nurse Practitioner Family; Visit Provider Nurse Practitioner Family
DX: M47.812 Spondylosis without myelopathy or radiculopathy, cervical region (principal); M43.13 Spondylolisthesis, cervicothoracic region; M43.12 Spondylolisthesis, cervical region
CPT/HCPCS: 72141

== ENCOUNTER 2024-11-30 08:44 | Outpatient (CLI) | payer MEDICARE, SELFPAY ==
--- NOTE | ~2024-11-30 | MR_ITS ---
MRI of the lumbar spine Clinical History: Abnormality of gait/mobility Technique: Axial T2-weighted images, and sagittal T1-weighted, T2-weighted, and and T2 fat-sat images were acquired. Findings: There is no fracture or subluxation of the lumbar spine. Vertebral bodies maintain normal h eight and alignment. No bone marrow signal abnormality seen. At L1-L2, there is mild disc bulge and moderate facet arthropathy. No central canal stenosis or neura l foraminal narrowing. At L2-L3, there is minimal disc bulge and moderate facet hypertrophy. No spinal canal stenosis or iqra ral foraminal narrowing. At L3-L4, there is mild disc bulge and moderate facet hypertrophy. No spinal canal stenosis. There is mild bilateral neural foraminal narrowing. Probable prior posterior decompression. At L4-L5, there is diffuse disc bulge with severe facet arthropathy. Probable prior posterior decompr ession. There is minimal central canal stenosis. There is mild bilateral neural foraminal narrowing. At L5-S1, there is minimal disc bulge with moderate facet arthropathy. Probable prior posterior decom pression. No danuta spinal canal stenosis or neural foraminal narrowing. Paravertebral soft tissues are otherwise unremarkable. Impression: Mild degenerative spondylosis. Probable prior posterior decompression from L3-L4 through L5-S1. Reviewed, dictated and finalized at [facility]. Impression: Mild degenerative spondylosis. Probable prior posterior decompression from L3-L4 through L5-S1.
--- OUTSIDE RECORDS SUMMARY | 2024-11-30 09:11 | XMS_ITS | Encounter Summary ---
Author Organization [facility] Address [address] [facility] [place] [address] Care Team Providers Care Triage Specialist Name Role Phone Vinicius Abraham MD Unavailable [phone] Heriberto Enriquez MD Unavailable [phone] Unknown, Provider Primary Care Provider Unavaila ble Encounter Details Date Type Department Care Team (Late st Contact Info) Description 08/24/2024 Lab Requisition [facility] - DermPath Lab [address] [facility], [place] [address] Soni Eastman MD [address] [facility] 3 [place] [address] Social History Tobacco Use Types Packs/Day Years [...] Entry Date Author No 05/25/2016 1:30 AM HARESHT Yen Terry RN documented in this encounter Plan of Treatment Upcoming Encounters Date Type Department Care Team (Late st Contact Info) Description 12/09/2024 10:40 AM CDT Office Visit [facility] [address] [address] [place] [address] [address] 02/24/2025 10:30 AM CDT Office Visit [facility] - Geriatrics [address] [facility] [place] [address] Sandra Polanco MD [address] [id number] documented as of this encounter Procedures Procedure Name Priority Date/Time Associated Diagnosis Comments DERMATOPATHOLOGY Routine 08/23/2024 3:33 AM MIXER DRIVER documented in this encounter Results * DERMATOPATHOLOGY (08/23/2024 3:33 AM MIXER DRIVER) Case Report Dermatopathology Report Case: [id number] Authorizing Provider: Soni Eastman MD Collected: 08/23/2024 03:33 AM Ordering Location: [facility] - Received: 08/24/2024 01:04 PM DermPath Lab Pathologist: Ilene Chung MD Specimen: Skin, left mid scalp 01/16/202 5 2:29 PM [facility] DERMATOPATHOLOGY LABORATORY Final Diagnosis Specimen A. 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 The specimen consists of a shave biopsy measuring 9x6x3 mm. Jar 0. 2:29 PM [facility] DERMATOPATHOLOGY LABORATORY Microscopic Description Specimen A. [...] column of marked compact hyperkeratosis. 2:29 PM [facility] DERMATOPATHOLOGY LABORATORY Disclaimer An external and internal positive and negative controls are appropriate for the histochemical, immunohistochemical and immunofluorescence stain(s) in this case (if any), except where stated explicitly. The performance characteristics of the stain(s) cited in this report were developed and its performance characteristic determined by the Dermatopathology Laboratory at [facility], directed by Dr. Luis Navas. These tests need not be, and therefore are not, approved by the [place] Food and Drug Administration. The tests are used for clinical purposes. Billing Codes Specimen Charges Stain Charges 32161 1 2:29 PM [facility] DERMATOPATHOLOGY LABORATORY Embedded Images 2:29 PM [facility] DERMATOPATHOLOGY LABORATORY Pathology/Cytolo gy TISSUE SPECIMEN FROM SKIN / Unknown 08/23/2024 3:33 AM MIXER DRIVER 08/24/2024 1:04 PM MIXER DRIVER Soni Eastman MD LAB - PATHOLOGY/CYTOLOGY OR DERABLES Final Result DERMATOPATHOLOGY LABORATORY [facility] - Department of Dermatology Specialized Medicine [address] [place] [address], [address] [phone] documented in this encounter Visit Diagnoses Not on filedocumented in this encounter Care Teams Triage Specialist Relationship Specialty Start Date End Date Unknown, Provider PCP - General 02/11/24 Vinicius Abraham MD Internal Medicine 08/21/17 [place] [address] [address] Anesthesiology-Pain Management 02/06/16 documented as of this encounter
--- OUTSIDE RECORDS SUMMARY | 2024-11-30 09:11 | XMS_ITS | Encounter Summary ---
Author Organization [facility] Address [address] [facility] [place] [address] Care Team Providers Care Sales And Marketing Intern Name Role Phone Vinicius Abraham MD Primary Care Provider [phone] Vinicius Abraham MD Unavailable [phone] Heriberto Enriquez MD Unavailable [phone] Maxwell Carrizales DO Primary Care Provider [phone] Leda Burch Primary Care Provider [phone] Unknown, Provider Primary Care Provider Unavaila ble Encounter Details Date Type Department Care Team (Late st Contact Info) Description 11/07/2021 Lab Requisition [facility] [address], [place] [address] Soni Eastman MD [address] [facility] 3 [place] [address] Social History Tobacco Use Types Packs/Day Years [...] Description 12/09/2024 10:40 AM CDT Office Visit [facility] [address] [address] [place] [address] [address] 02/24/2025 10:30 AM CDT Office Visit [facility] - Geriatrics [address] [place] [address] [place] [address] Sandra Polanco MD [address] [address] documented as of this encounter Procedures Procedure Name Priority Date/Time Associated Diagnosis Comments DERMATOPATHOLOGY Routine 11/07/2021 12:0 0 AM CDT documented in this encounter Results * DERMATOPATHOLOGY (11/07/2021 12:00 AM CDT) Case Report Dermatopathology Report Case: [id number] Authorizing Provider: Soni Eastman MD Collected: 11/07/2021 12:00 AM Ordering Location: [facility] Received: 11/07/2021 04:42 PM [...] sections were obtained and reviewed. 12:37 PM CDT DERMATOPATHOLOGY LABORATORY Disclaimer An external and internal positive and negative controls are appropriate for the histochemical, immunohistochemical and immunofluorescence stain(s) in this case (if any), except where stated explicitly. The performance characteristics of the stain(s) cited in this report were developed and its performance characteristic determined by the Dermatopathology Laboratory at [facility], directed by Dr. Luis Navas. These tests need not be, and therefore are not, approved by the [place] Food and Drug Administration. The tests are used for clinical purposes. Billing Codes Specimen Charges Stain Charges 01648 1 38509 1 12:37 PM CDT DERMATOPATHOLOGY LABORATORY Embedded Images 12:37 PM CDT DERMATOPATHOLOGY LABORATORY Pathology/Cytolog y TISSUE SPECIMEN FROM SKIN / Unknown 11/07/2021 11/07/2021 4:42 PM CDT Soni Eastman MD LAB - PATHOLOGY/CYTOLOGY OR DERABLES Final Result DERMATOPATHOLOGY LABORATORY [facility] - Department of Dermatology [place], [address] [place] [address], [facility] [phone] documented in this encounter Visit Diagnoses Not on filedocumented in this encounter Care Teams Sales And Marketing Intern Relationship Specialty Start Date End Date Vinicius Abraham MD [address] [place] [address] PCP - General 08/21/17 03/13/22 Maxwell Carrizales DO [address] [place] [address] PCP - General 03/14/22 08/24/23 Leda Burch PA [address] [place] [address] PCP - General Nurse Practitioner Primary Care 08/25/23 02/10/24 Unknown, Provider PCP - General 02/11/24 Vinicius Abraham MD [address] [place] [address] Internal Medicine 08/21/17 [place] [address] [address] Anesthesiology-Pain Management 02/06/16 documented as of this encounter
--- OUTSIDE RECORDS SUMMARY | 2024-11-30 09:11 | XMS_ITS | Continuity of Care Document ---
Author Organization [facility] Address [address] [place] [address] Phone Care Team Providers Care Pole Lift Operator Name Role Phone Kennedy Flower Unavailable Unavailable [...] Diagnoses Date Provider Providers Copied on Encounter [facility], [address], [place], [place], [id number], tel:[phone] [facility] No Information 2 4-201 0 Doisy Edward. [address] , [address], [place], [place], [facility], [place]. tel:[phone] [facility], [address], [place], [place], [address], [place] tel:[phone] [facility] No Information Jun-1 0-201 0 Doisy Edward. [address] [facility] , [address], [place], [facility], [place]. tel:[phone] Referring Provider: Lucian Higgins, [address] [place] [address], [facility]. tel:[phone] [facility], [address], [place], [place], [id number], [place] tel:[phone] [facility] No Information Nov-0 8-201 0 Katarina Epstein. [address] [place] [address], [address], [place]. tel:[phone] Referring Provider: Lucian Higgins, [address] [place], [address]. tel:[phone] [facility], [address], [place], [place], [address], [place] tel:[phone] [facility] No Information 7-201 0 Doisy Edward. [address] [facility] , [address], [place], [address], [place]. tel:[phone] Referring Provider: Lucian Higgins, [address] [place], [address]. tel:[phone] [facility], [address], [place], [place], [address], [place] tel:[phone] [facility] No Information Oct-2 6-201 0 Doisy Edward. [address], [place], [address], [place]. tel:[phone] Referring Provider: Lucian Higgins, [address] [place], [address]. tel:[phone] Office/outpati ent Visit, [facility], [address], [place], [place], [address], [place] tel:[phone] [facility] No Information Oct-0 6-201 0 Doisy Edward. [address] [facility] [address], [address], [place], [address], [place]. tel:[phone] Referring Provider: Lucian Higgins, [address] [place], [address]. tel:[phone] [facility], [address], [place], [place], [address], [place] tel:[phone] [facility] No Information Oct-0 4-201 0 Katarina Epstein. [address] [place], [address], [place]. tel:[phone] Referring Provider: Lucian Higgins, [address] [place], [address]. tel:[phone] [facility], [address], [place], [place], [address], [place] tel:[phone] [facility] No Information Sep-1 3-201 0 Katarina Epstein. [address] [place], [address], [place]. tel:[phone] Referring Provider: Lucian Higgins, [address] [place], [address]. tel:[phone] [facility], [address], [place], [place], [address], [place] tel:[phone] [facility] No Information Mar-3 0-201 0 Katarina Epstein. [address] [place], [address], [place]. tel:[phone] Referring Provider: Lucian Higgins, [address] [place], [address]. tel:[phone] [facility], [address], [place], [place], [id number], [place] tel:[phone] [facility] No Information 6-201 0 Katarina Epstein. [address] [place], [address], [place]. tel:[phone] Referring Provider: Lucian Higgins, [address] [place], [address]. tel:[phone] [facility], [address], [place], [place], [address], [place] tel:[phone] [facility] No Information 1 2-201 0 Katarina Epstein. [address] [place], [address], [place]. tel:[phone] Referring Provider: Lucian Higgins, [address] [place], [address]. tel:[phone] Office/outpati ent Visit, [facility], [address], [place], [place], [address], [place] tel:[phone] [facility] [place] No Information 0 5-201 0 Katarina Epstein. [address] [place], [address], [place]. tel:[phone] Referring Provider: Lucian Higgins, [address] [place], [address]. tel:[phone] [facility], [address], [place], [place], [address], [place] tel:[phone] [facility] No Information Fabian-2 1-201 0 Katarina Epstein. [address] [place], [address], [place]. tel:[phone] Referring Provider: Kennedy Torrez, [facility] [place] [address], [place], [address]. tel:[phone] Office/outpati ent Visit, [facility], [address], [place], [place], [address], [place] tel:[phone] [facility] No Information Fabian-1 8-201 0 Ching Benavides. [facility] [place] , [address], [place], [address], [place]. tel:[phone] [facility], [address], [place], [place], [address], [place] tel:[phone] [facility] No Information Apr-1 5-201 0 Santiago OD James. [address] [place], [place] [address] , [address], [place], [address], [place]. tel:[phone] [facility], [address] [place] [address] [address], [place], [place], [address], [place] tel:[phone] [facility] No Information Apr-1 3-200 9 Katarina Epstein. [address] [place], [address], [place]. tel:[phone] [facility], [address], [place], [place], [address], [place] tel:[phone] [facility] No Information Mar-3 0-200 9 Katarina Epstein. [address] [place], [address], [place]. tel:[phone] Referring Provider: Lucian Higgins, [address] [place], [address]. tel:[phone] Office Consultation [facility], [address] [place] [address] [address], [place], [place], [address], tel:[phone] [facility] No Information Oct-2 6-200 9 Katarina Epstein. [address] [place], [address], [place]. tel:[phone] Referring Provider: James Torrez, [address], [place], [facility]. tel:[phone] [facility], [address], [place], [place], [address], tel:[phone] [facility] No Information Oct-2 6-200 9 Santiago OD James. [address] [facility] , [address], [place], [address], [place]. tel:[phone] Family History Family Member Type Diagnosis Age [...]
--- OUTSIDE RECORDS SUMMARY | 2024-11-30 09:11 | XMS_ITS | Encounter Summary ---
Author Organization [facility] Address [facility] [place] [address] Care Team Providers Care Waxing Machine Operator Name Role Phone Vinicius Abraham MD Unavailable Heriberto Enriquez MD Unavailable [phone] Unknown, Provider Primary Care Provider Unavaila ble Reason for Visit * Reason Onset Date Comments Appointment 11/29/2024 Encounter Details Date Type Department Care Team (Late st Contact Info) Description 11/29/2024 Telephone [facility] [address] [address] [place] [address] [address] Appointment Social History Tobacco Use Types Packs/Day Years [...] Assessment Author No 05/25/2016 1:30 AM CDT Harrison, Yen L, RN * Is person blind or have [...] Yen Terry RN documented in this encounter Miscellaneous Notes * Telephone Encounter - Leslie Ramirez - 11/29/2024 11:18 AM CDT Mr. Grimes called in to say he is getting worse. He was previously advised that we would need to have an MRI to schedule an appointment. He feels that he need to be seen right away. Let him know that he can go to an urgent care if he feels that he needs to be seen right away. documented in this encounter Plan of Treatment Upcoming Encounters Date Type Department Care Team (Late st Contact Info) Description 12/09/2024 10:40 AM CDT Office Visit [facility] Neurosciences [address] [address] [place] [address] [facility] [address] [place] [address] 02/24/2025 10:30 AM CDT Office Visit [facility] [facility], [place] [address] Sandra Polanco MD [address] [facility] [address] [place] [address] documented as of this encounter Visit Diagnoses Not on filedocumented in this encounter Care Teams Waxing Machine Operator Relationship Specialty Start Date End Date Unknown, Provider PCP - General 02/11/24 Vinicius Abraham MD Internal Medicine 08/21/17 [place] [address] [address] Anesthesiology-Pain Management 02/06/16 documented as of this encounter
--- OUTSIDE RECORDS SUMMARY | 2024-11-30 09:11 | XMS_ITS | Clinical Summary ---
Author Organization [facility] Address [facility] [facility] [place] [address] Care Team Providers Care Adjunct Art History Instructor Name Role Phone Vinicius Abraham MD Unavailable [phone] Heriberto Enriquez MD Unavailable [phone] Unknown, Provider Primary Care Provider Unavaila ble Source Comments [facility],non-owned Affiliates and Associated Physician Practices is amultiple site organization consisting of ambulatory clinics and hospital sitesin [place], [place], [place] and [place]. This disclosure is being madepursuant to the Care Everywhere program and may not contain all information available regarding this patient. Last updated 18.[facility] Allergies Active Allergy Reactions Criticality [...] tablet by mouth once daily Active B KEIHTQZ-OZUSTF-X A PO Take 1 tablet by mouth [...] tablet by mouth once daily 4 Active S-Oqcbkzdqfwwc-D lgae-B12-B6 (Metanx) 3-90.314-2-35 MG capsule 4 Active [...] Encounters Date Type Department Care Team Description 11/29/2024 Telephone [facility] [address] [facility] [address] [place] [address] Anthony Pritchett MD Appointment from Last 3 Months Immunizations Immunization Administration Dates Next Due INFLUENZA [...] 36.8 C (98.2 F) 09/09/2023 10:32 AM BUTANE COMPRESSOR OPERATOR Respiratory Rate 18 02/06/2023 9:43 AM CDT Oxygen Saturation 97% 04/01/2024 9:09 AM CDT Inhaled Oxygen Concentration - - Weight 94.8 kg (209 lb) 04/01/2024 9:09 AM CDT Height 182.9 cm (6') 09/09/2023 10:32 AM BUTANE COMPRESSOR OPERATOR Body Mass Index 28.35 09/09/2023 10:32 AM BUTANE COMPRESSOR OPERATOR Plan of Treatment Upcoming Encounters Date Type Department Care Team (Late st Contact Info) Description 12/09/2024 10:40 AM CDT Office Visit [facility] Health Neurosciences [address] [facility] [address] [place] [address] [place] [address] [facility] [address] [place] [address] 02/24/2025 10:30 AM CDT Office Visit [facility] - Geriatrics [address] [facility], [place] [address] Sandra Polanco MD [address] [facility] [address] [place] [address] Health Maintenance Due Date Last Done Comments [...] COMPREHENSIVE METABOLIC PANEL STAT 10/12/2017 6:46 AM BUTANE COMPRESSOR OPERATOR from Last 3 Months or Most Recently Relevant to Health Maintenance Results * HEMOGLOBIN A1C - POINT OF CARE (AMB) [facility] (04/01/2024 9:22 AM CDT) Hemoglobin A1c POCT 6.4 % [address] BLOOD SPECIMEN / Unknown 04/01/2024 9:22 AM CDT Sandra Polanco MD LAB - POINT OF CARE ORDERABL ES Final Result Performing Organization Address [facility]/State/ZIP Co de Phone Number [address], [place] [address], [facility] [phone] * (ABNORMAL) COMPREHENSIVE METABOLIC PANEL (10/12/2017 6:46 AM BUTANE COMPRESSOR OPERATOR) BUN 28(H) 7 - 26 mg/dL [facility] Creatinine 1.2 0.6 - 1.2 mg/dL [facility] Sodium 141 136 - 145 mmol/L [facility] Potassium 4.4 3.5 - 4.5 mmol/L [facility] Chloride 103 98 - 107 mmol/L [facility] CO2 26 22 - 29 mmol/L [facility] Glucose 146(H) 70 - 115 mg/dL [facility] Calcium 9.1 8.4 - 10.2 mg/dL [facility] Protein Total 7.3 6.0 - 8.3 g/dL [facility] Albumin 3.8 3.4 - 5.0 g/dL [facility] Bilirubin Total 0.8 0.2 - 1.2 mg/dL [facility] Alkaline Phosphatase 59 40 - 150 Units/L [facility] ALT 35 0 - 55 Units/L [facility] AST 29 5 - 34 Units/L [facility] Anion Gap 16 8 - 18 [facility] BUN/Creatinine Ratio 23 7 - 23 [facility] Osmolality Calculated 300 270 - 300 mOsm/kg [facility] Albumin/Globulin Ratio 1.1 1.1 - 2.3 [facility] eGFR 59(L) >60 mL/min/1.7 3 m2 [facility] Blood specimen (specimen) BLOOD SPECIMEN / Unknown 10/12/2017 6:46 AM BUTANE COMPRESSOR OPERATOR 10/12/2017 6:48 AM BUTANE COMPRESSOR OPERATOR Heladio Adhikari MD LAB - CHEMISTRY ORDERABLE S Final Result [facility] [address] [place] [address] from Last 3 Months or Most Recently Relevant to Health Maintenance Insurance AETNA MEDICARE ADV AETNA AETNA AETNA AETNA AETNA AETNA AETNA AETNA AETNA AETNA AETNA AETNA AETNA AETNA AETNA AETNA AETNA [facility] Care Address: [facility] [id number] [place] [phone] Advance Directives * Full Code (Latest Code Status on File) Date Activated Date Inactivated Comments 05/25/2016 6:59 AM 05/26/2016 4:43 PM * Full Code Date Activated Date Inactivated Comments 05/22/2016 3:45 PM 05/23/2016 11:38 AM Care Teams Adjunct Art History Instructor Relationship Specialty Start Date End Date Unknown, Provider PCP - General 02/11/24 Vinicius Abraham MD Internal Medicine 08/21/17 [place] [address] [facility] [address] [address] Anesthesiology-Pain Management 02/06/16
== END 2024-11-30 08:45 | disposition home or self-care (01) ==
PROVIDERS: PCP Nurse Practitioner Family; Visit Provider Nurse Practitioner Family
DX: M47.816 Spondylosis without myelopathy or radiculopathy, lumbar region (principal); M47.817 Spondylosis without myelopathy or radiculopathy, lumbosacral region; G62.9 Polyneuropathy, unspecified
CPT/HCPCS: 72148

== ENCOUNTER 2024-12-30 10:30 | Outpatient (RCR) | payer MEDICARE, SELFPAY | END 2025-03-08 10:58 | disposition home or self-care (01) | LOC: ANHDMC 10:30 | PROVIDERS: PCP Nurse Practitioner Family; Visit Provider Nurse Practitioner Family | DX: E11.22 Type 2 diabetes mellitus with diabetic chronic kidney disease (principal); E11.65 Type 2 diabetes mellitus with hyperglycemia; N18.31 Chronic kidney disease, stage 3a; Z71.89 Other specified counseling | CPT/HCPCS: G0108 ==

== ENCOUNTER 2025-04-25 10:35 | Outpatient (RCR) | payer MEDICARE, SELFPAY | END 2025-04-25 11:48 | disposition home or self-care (01) | LOC: ANHDMC 10:35 | PROVIDERS: PCP Nurse Practitioner Family; Visit Provider Nurse Practitioner Family | DX: E11.22 Type 2 diabetes mellitus with diabetic chronic kidney disease (principal); N18.31 Chronic kidney disease, stage 3a; Z71.89 Other specified counseling | CPT/HCPCS: G0108 ==

== ENCOUNTER 2025-06-26 10:29 | Outpatient (RCR) | payer MEDICARE, SELFPAY ==
--- NOTE | 2025-06-26 11:20 | OTOPEVDC ---
Assessment and note entered by Eyad Oglesby, OTR/L, CHT Thank you for referring Manuel Grimes to [facility].? An evaluation has been completed. No further treatment is needed. Evaluation Information Assessment Status Evaluation Subjective Information Dx: CVA, a-fib, polyneuropathy, Parkinson's Patient referred to our clinic for mobility device evaluation. He presents today with his . He reports they live in a tri-level home with 6 stairs between each level. He has a walker on each level that he uses. He reports he is functional in his home at this time, is able to walk household distances, just looking for a mobility device for long distance in the community. Assessment OT Clinical Summary Patient referred to our clinic for a mobility device evaluation. He presents today with his . He walks around our clinic today with the use of a walking stick, walking 120 independently. He transfers independently. He is currently independent with ADLs. He is currently independent with mobility in his home with the use of a properly fitted walker. At this time he does not quality for a wheelchair for home use as his needs are for community distance, which insurance does not cover. The patient and his were provided with community resources to find a manual wheelchair for community distance mobility. He is currently in PT to work on strength and endurance also. At this time the patient does not qualify for the desired equipment. Thank you for this referral. D/C from OT services. Plan of Care OT Services Indicated No
== END 2025-06-26 12:59 | disposition home or self-care (01) ==
LOC: ANHOT 10:29
PROVIDERS: PCP Nurse Practitioner Family; Visit Provider Nurse Practitioner Family
DX: Z46.89 Encounter for fitting and adjustment of other specified devices (principal)
CPT/HCPCS: 97166

== ENCOUNTER 2025-06-27 12:36 | Outpatient (CLI) | payer MEDICARE, SELFPAY ==
--- NOTE | 2025-06-27 12:56 | ECHO_ITS ---
Patient Info Name: Manuel Grimes Age: 85 years : 1940 Gender: Male Ht: 72 in Wt: 196 lbs BSA: 2.14 m2 HR: 54 bpm BP: 129 / 64 mmHg Technical Quality: Good Exam Date: 06/27/2025 12:58 PM Patient Status: O Admit Date: 06/27/2025 Exam Type: CA echo doppler color flow Complete two-dimensional, color flow and Doppler transthoracic echocardiogram is performed. Research Dietitian: Agnieszka Blancas Attending Provider: Brenden Pollock DO Summary 1. Complete two-dimensional, color flow and Doppler transthoracic echocardiogram is performed. 2. Left ventricular chamber dimension is normal. 3. Left ventricular systolic function is normal, estimated at 60-65. 4. There is moderate concentric increased left ventricular wall thickness. 5. E/e' 10 is mildly elevated. 6. Left atrial chamber dimension is moderately enlarged. 7. Right atrial chamber dimension is mildly enlarged. 8. 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 9. There is mild aortic valve stenosis based on a peak velocity of 272 cm/s, mean gradient of 12 mmHg, and aortic valve area of 2.1 cm2. 10. There is mild aortic valve regurgitation. 11. There is mild mitral valve regurgitation. 12. There is mild tricuspid valve regurgitation. 13. Mild pulmonary hypertension, estimated pulmonary arterial systolic pressure is 41 mmHg. 14. There is mild pulmonic regurgitation. Left Ventricle E/e' 10 is mildly elevated. Left ventricular chamber dimension is normal. Left ventricular systolic function is normal, estimated at 60-65. There is moderate concentric increased left ventricular wall thickness. Right Ventricle Right ventricular chamber dimension is normal. Right ventricular systolic function is normal and with normal TAPSE 2.8 cm. Left Atria Left atrial chamber dimension is moderately enlarged. Right Atria Right atrial chamber dimension is mildly enlarged. Aortic Valve The aortic valve is trileaflet. 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 There is mild aortic valve stenosis based on a peak velocity of 272 cm/s, mean gradient of 12 mmHg, and aortic valve area of 2.1 cm2. There is mild aortic valve regurgitation. Pulmonic Valve There is mild pulmonic regurgitation. Mitral Valve There is no mitral valve stenosis. There is mild mitral valve regurgitation. Tricuspid Valve There is mild tricuspid valve regurgitation. Mild pulmonary hypertension, estimated pulmonary arterial systolic pressure is 41 mmHg. Pericardium/Pleural There is no pericardial effusion. Inferior Vena Cava Normal inferior vena cava with >50% collapse upon inspiration consistent with normal right atrial pressure, 5 mmHg. Aorta The aortic root size at the sinus of Valsalva is normal. Left Ventricular Outflow Tract Name Value Normal LVOT 2D LVOT Diameter 2.1 cm LVOT Doppler LVOT Peak Velocity 138 cm/s LVOT Peak Gradient 6 mmHg LVOT Mean Gradient 3 mmHg LVOT VTI 37 cm LVOT VTI/AV VTI Ratio 0.6 LVOT Stroke Volume 132 ml LVOT CO 4.5 l/min LVOT CI 2.1 l/min/m2 Pulmonic Valve Name Value Normal RVOT Doppler RVOT Peak Velocity 72 cm/s RVOT Peak Gradient 2 mmHg PV Doppler PV Peak Velocity 119 cm/s PV Peak Gradient 6 mmHg Mitral Valve Name Value Normal MV Regurgitation Doppler MR Peak Gradient 117 mmHg MV Diastolic Function MV E Peak Velocity 97 cm/s MV A Peak Velocity 44 cm/s MV E/A 2.2 MV Decel Time (PW) 257 ms Tricuspid Valve Name Value Normal TV Regurgitation Doppler TR Peak Velocity 300 cm/s TR Peak Gradient 36 mmHg Estimated PAP/RSVP RA Pressure 5 mmHg <=5 PA Systolic Pressure 41 mmHg <36 RV Systolic Pressure 41 mmHg <36 TV Annular TDI TV Lateral Krystal s' Velocity 12.6 cm/s >=9.5 Aorta Name Value Normal Ascending Aorta Ao Root Diameter (MM) 3.3 cm Ao Root Diam Index (MM) 1.6 cm/m2 Aortic Valve Name Value Normal AV Doppler AV Peak Velocity 272 cm/s AV Peak Gradient 22 mmHg AV Mean Gradient 12 mmHg AV VTI 62 cm AV Area (Cont Eq VTI) 2.1 cm2 >=3.0 AV Area (Cont Eq Nelson) 1.8 cm2 AV DI (Nelson) 0.51 AV Regurgitation 2D LVOT Area 3.6 cm2 Ventricles Name Value Normal LV Dimensions 2D/MM IVS Diastolic Thickness (2D) 0.9 cm 0.6-1.0 IVS Diastole Thickness (MM) 1.4 cm 0.6-1.0 LVID Diastole (2D) 4.7 cm 4.2-5.8 LVID Diastole (MM) 4.5 cm 4.2-5.8 LVIW Diastolic Thickness (2D) 1.3 cm 0.6-1.0 LVIW Diastolic Thickness (MM) 1.1 cm 0.6-1.0 LVID Systole (2D) 3.4 cm 2.5-4.0 LVID Systole (MM) 2.2 cm 2.5-4.0 LVOT Diameter 2.1 cm LV Mass (2D Cubed) 188.41 g 88.00-224.00 LV Mass Index (2D Cubed) 88 g/m2 49-115 Relative Wall Thickness (2D) 0.53 <=0.42 LV Mass (MM Cubed) 219.38 g 88.00-224.00 LV Mass Index (MM Cubed) 103 g/m2 49-115 Relative Wall Thickness (MM) 0.50 LV Fractional Shortening/Ejection Fraction 2D/MM LV Fractional Shortening (2D) 28 % 25-43 LV Fractional Shortening (MM) 52 % 25-43 LV EF (MM Teichholz) 83 % LV EF (2D Teichholz) 55 % LV Diastolic Volume (4C MOD) 107 ml LV EF (4C MOD) 59 % LV Diastolic Volume (2C MOD) 76 ml LV EF (2C MOD) 51 % LV Diastolic Volume (BP MOD) 90 ml 62-150 LV Diastolic Volume Index (BP MOD) 42 ml/m2 34-74 LV Systolic Volume (BP MOD) 42 ml 21-61 LV Systolic Volume Index (BP MOD) 20 ml/m2 11-31 LV EF (BP MOD) 54 % 52-72 LV Diastolic Length (4C) 8.5 cm LV Systolic Length (4C) 7.1 cm LV Stroke Volume (4C MOD) 64 ml Atria Name Value Normal LA Dimensions LA Dimension (MM) 4.5 cm 3.0-4.0 LA Volume (4C A-L) 68 ml LA Volume (BP A-L) 83 ml RA Dimensions RA Systolic Major [place] Length (4C) 6.5 cm 2.1-2.7 RA Area (4C) 24.2 cm2 <=18.0 Report Signatures
== END 2025-06-27 12:37 | disposition home or self-care (01) ==
LOC: ANHCARD 12:45
PROVIDERS: PCP Nurse Practitioner Family; Visit Provider Internal Medicine Cardiovascular Disease
DX: R93.1 Abnormal findings on diagnostic imaging of heart and coronary circulation (principal); I35.1 Nonrheumatic aortic (valve) insufficiency
CPT/HCPCS: 93306

== ENCOUNTER 2025-07-10 10:27 | Outpatient (CLI) | payer MEDICARE, SELFPAY ==
--- NOTE | ~2025-07-10 | XR_ITS ---
EXAMINATION: XR ankle LT min 3V, 07/10/2025 10:32 [employer] HISTORY: M25.572 - Pain in left ankle and joints of left foot COMPARISON: No comparisons available. Findings: No acute fracture or malalignment. No significant degenerative changes. Soft tissues unremarkable. Impression: No acute fracture or malalignment. Reviewed, dictated and finalized at location P. [facility] [employer] Impression: No acute fracture or malalignment.
== END 2025-07-10 10:28 | disposition home or self-care (01) ==
LOC: MICIMG 10:28
PROVIDERS: PCP Nurse Practitioner Family; Visit Provider Nurse Practitioner Family
DX: M25.572 Pain in left ankle and joints of left foot (principal)
CPT/HCPCS: 73610